=== PATIENT | male | born 1950 | race Caucasian/White ===

== ENCOUNTER 2018-11-27 10:42 | Inpatient (IN) | payer MEDICARE, OTHER ==
[2018-11-27] VITALS (8 sets, daily range): BP systolic 82–200; BP diastolic 46–94
[~2018-11-27] VITALS: Ht 170.2 cm; Wt 105.3 kg
[~2018-11-27 10:42] MED LIST: AMLODIPINE BESYL5 MG PO; DIOVAN80 MG PO; JANUVIA100 MG PO; LASIX20 MG PO; VITAMIN D2400 UNIT
[2018-11-27] MEDS ORDERED: SODIUM CHLORIDE 0.9% 1000ML 1,000 ML IV STA (10:44)
--- OUTSIDE RECORDS SUMMARY | 2018-11-27 10:46 | XMS REPORT | Clinical Summary ---
Author Author [facility]ADEL[facility] Address Unknown Phone Unavailable Care Team Providers Care Muffler Hand Name Role Phone Pcp, No PCP Unavailable Allergies No Known Allergies Medications End Date Status Medication Sig Dispensed Refills Start Date Active tamsulosin (FLOMAX) 0.4 Take 1 90 capsule 0 //201 mg Cp24 24 hr capsule capsule (0.4 7 mg total) by mouth daily. Active valsartan-hydroCHLOROthia Take 1 tablet 0 zide (DIOVAN-HCT) 160-25 by mouth mg per tablet daily. Active furosemide (LASIX) 20 MG Take 20 mg by 0 tablet mouth daily . Active potassium 99 mg Tab Take 1 tablet 0 by mouth daily . Active b complex vitamins Take 1 0 capsule capsule by mouth daily. Active magnesium oxide (MAG-OX) Take 400 mg 0 400 mg tablet by mouth daily. Active melatonin 3 mg Tab tablet Take 3 mg by 0 mouth every night as needed. Active HUMALOG U-100 INSULIN 100 0 02/05/201 unit/mL 8 injectionIndications: Fatty liver, Screening for cancer, Thrombocytopenia (HCC) Active SITagliptin (JANUVIA) 25 Take by mouth 0 MG tabletIndications: daily. Fatty liver, Screening for cancer, Thrombocytopenia (HCC) 02/28/2018 Discontinued valsartan (DIOVAN) 80 MG Take 80 mg by 0 tablet mouth daily. 02/28/2018 Discontinued SITagliptin (JANUVIA) 50 Take 50 mg by 0 MG tablet mouth daily. 05/04/2018 amLODIPine (NORVASC) 10 Take 1 tablet 90 tablet 0 05/04/201 MG tablet (10 mg total) 7 by mouth daily. 04/03/2018 Discontinued insulin regular (HUMULIN Inject 0 R,NOVOLIN R) 100 unit/mL subcutaneousl injection y 3 (three) times daily before meals Use as directed . 06/21/2018 PEG Take 1 packet 1 packet 0 [id number] by mouth once 8 C (MOVIPREP) for 1 dose. 100-7.5-2.691 gram PwPk packet Active Problems Patient Care Coordination Note Endocrinology- Hue rBown Neurologist- Dr. Woodall [phone] Customer Development Representative- Dr. Woodard [phone] Problem Noted Date Fatty liver 04/30/2018 Last Assessment & Plan: Continue follow up with hepatology. Screening for cancer 04/30/2018 Last Assessment & Plan: Patients over the age of 50 are at risk for colon cancer. Per patient report, he received his first colonoscopy at age 49 which he says is normal. I recommend a colonoscopy for further evaluation with EGD to rule out varices. Thrombocytopenia 04/30/2018 Last Assessment & Plan: Platelet count is 155 on recent labs however has been lower prior. This could be due to portal hypertension and splenic sequestration although ultrasound does not suggest splenomegaly. We will repeat platelet count with citrate to rule out thrombocytopenia due to artifact. Immunity status testing 04/30/2018 Obesity 04/03/2018 Last Assessment & Plan: Current BMI is 37. He will need to continue losing weight. He was encouraged to monitor his po intake and to exercise as tolerated. DM2 (diabetes mellitus, type 2) 02/20/2018 Last Assessment & Plan: Continue management with primary care for glucose management. Essential hypertension 02/20/2018 Last Assessment & Plan: Blood pressure management per primary care. Pre-transplant evaluation for ESRD (end stage renal disease) 02/20/2018 Last Assessment & Plan: He is an acceptable candidate but will need hepatology clearance (appointment this afternoon). He will also need to continue losing weight prior to transplant. ESRD (end stage renal disease) 02/20/2018 Last Assessment & Plan: Renal disease secondary to DM/HTN. He does not require hemodialysis at this time and still produces normal amounts of urine. ICH (intracerebral hemorrhage) 05/02/2017 Encounters Care Team Description Date Type Specialty Julia Alex RN Awaiting transplantation of kidney (Primary Dx) 10/22/2018 Orders Only Transplant Ava Matamorosen, MD 09/04/2018 Evaluation Transplant Kelsie Bob, MARICARMEN 06/28/2018 Anesthesia Gastroenterology Event Trino Dang MD COLONOSCOPY 06/28/2018 Surgery Gastroenterology Trino Dang MD 06/28/2018 Hospital Gastroenterology Encounter Kelsie Bob NP 06/27/2018 Anesthesia Pre-Admission Testing Event Resource, [facility] Preadmit Phone 06/26/2018 Hospital Pre-Admission Testing Encounter Jacey Rivas RN Moviprep 06/25/2018 Telephone Hepatology Jacey Rivas RN 06/21/2018 Orders Only Hepatology Trino Dang MD ESRD (end stage renal disease) (HCC) (Primary Dx); Fatty liver; Class 2 severe obesity due to excess calories with serious comorbidity and body mass index (BMI) of 37.0 to 37.9 in adult (HCC); Pre-transplant evaluation for ESRD (end stage renal disease) 06/05/2018 Office Visit Hepatology Trino Dang MD Lands, Sarah Elizabeth, NP Pre-transplant evaluation for ESRD (end stage renal disease) (Primary Dx); BMI 37.0-37.9, adult; ESRD (end stage renal disease) (HCC); Essential hypertension; Fatty liver 06/05/2018 Office Visit Transplant Feliciano Malin Essential hypertension, malignant; Pre-transplant evaluation for chronic kidney disease; Anemia of renal disease 06/05/2018 Hospital Cardiology Encounter Amaya Quinn Procedure (Colonoscopy) 06/05/2018 Telephone Hepatology Julia Alex RN Waitlist Maintenance 06/04/2018 Telephone Transplant Trino Dang MD Fatty liver; Thrombocytopenia (HCC); Screening for cancer 05/22/2018 Hospital Encounter Miryam Kraft, MARLON 05/22/2018 Abstract Transplant Miryam Kraft RN Pre-transplant evaluation for ESRD (end stage renal disease) (Primary Dx); Patient awaiting renal transplant 05/22/2018 Orders Only Transplant Trino Dang MD 05/03/2018 Outside Orders Central Scheduling Gabby Shrestha 05/01/2018 Documentation Transplant Allyson Dubois II, MD Provider, [facility] Generic No Show 04/30/2018 [facility] Charge Transplant Visit Trino Dang MD Fatty liver; Screening for cancer; Thrombocytopenia (HCC); Essential hypertension; Class 2 severe obesity due to excess calories with serious comorbidity and body mass index (BMI) of 37.0 to 37.9 in adult (HCC); Type 2 diabetes mellitus with chronic kidney disease, with long-term current use of insulin, unspecified CKD stage (HCC); Immunity status testing 04/30/2018 Office Visit Hepatology Miryam Kraft RN 04/30/2018 Documentation Transplant Jacey Rivas RN Fatty liver (Primary Dx) 04/30/2018 Orders Only Hepatology Rimma Zavaleta Appointment (Mr. Harper is here for his appt with hepatology and I walked over to give Mr. Harper his MRB letter and his itinerary and Mr. Harper is aware of his appts) 04/30/2018 Telephone Transplant Rimma Zavaleta Appointment (Per Mr. Harper he will be here for his appt with hepatology on this morning. Mr. Harper is aware of his appt for 06.05.18 and to check in at 7 am. I'm mailing the pts itinerary) 04/30/2018 Telephone Transplant Sahil Pierre Appointment 04/27/2018 Telephone Hepatology Amaya Barnes RN Essential hypertension, malignant (Primary Dx); Pre-transplant evaluation for chronic kidney disease; Anemia of renal disease 04/20/2018 Orders Only Transplant Amaya Barnes RN 04/20/2018 Abstract Transplant Sergio Mancia MD ESRD (end stage renal disease) (HCC); Pre-transplant evaluation for chronic kidney disease; Anemia of renal disease; Essential hypertension, malignant; Uncontrolled other specified diabetes mellitus with stage 4 chronic kidney disease, unspecified whether jail insulin use (HCC) 04/03/2018 Orders Only Transplant Hepatology Sergio Mancia MD Lands, Sarah Elizabeth, NP Pre-transplant evaluation for chronic kidney disease (Primary Dx); Uncontrolled other specified diabetes mellitus with stage 4 chronic kidney disease, unspecified whether jail insulin use (HCC); Essential hypertension, malignant; ESRD (end stage renal disease) (HCC) 04/03/2018 Office Visit Transplant Sergio Mancia MD 04/03/2018 Evaluation Transplant Amaya Barnes RN 03/01/2018 Documentation Transplant Rimma Zavaleta Appointment (Spoke with Mr. Harper and he's aware of his new appt date 04/03/18 and I have mailed the itinerary to the patient) 03/01/2018 Telephone Transplant Sergio Mancia MD ESRD (end stage renal disease) (HCC); Pre-transplant evaluation for chronic kidney disease; Anemia of renal disease; Essential hypertension, malignant; Uncontrolled other specified diabetes mellitus with stage 4 chronic kidney disease, unspecified whether lobsterman insulin use (HCC) 02/28/2018 Hospital Radiology Encounter Sergio Mancia MD ESRD (end stage renal disease) (HCC); Pre-transplant evaluation for chronic kidney disease; Anemia of renal disease; Essential hypertension, malignant; Uncontrolled other specified diabetes mellitus with stage 4 chronic kidney disease, unspecified whether lobsterman insulin use (HCC) 02/28/2018 Hospital Encounter Allyson Dubois II, MD Yao, June, MD ESRD (end stage renal disease) (HCC) (Primary Dx) 02/28/2018 Evaluation Transplant Allyson Dubois II, MD ESRD (end stage renal disease) (HCC); Pre-transplant evaluation for chronic kidney disease; Anemia of renal disease; Essential hypertension, malignant; Uncontrolled other specified diabetes mellitus with stage 4 chronic kidney disease, unspecified whether lobsterman insulin use (HCC) 02/28/2018 Orders Only Transplant Hepatology Allyson Dubois II, MD Newby, Karen, RN ESRD (end stage renal disease) (HCC) (Primary Dx); Pre-transplant evaluation for chronic kidney disease; Anemia of renal disease; Essential hypertension, malignant; Uncontrolled other specified diabetes mellitus with stage 4 chronic kidney disease, unspecified whether lobsterman insulin use (HCC) 02/28/2018 Office Visit Transplant Amaya Barnes RN Pre-transplant evaluation for chronic kidney disease (Primary Dx) 02/28/2018 Orders Only Transplant Allyson Dubois II, MD 02/28/2018 Outside Orders Rimma Zavaleta Appointment (Left a message for to call back to confirm his appt for Wednesday, February 28) 02/26/2018 Telephone Transplant Chad Gill 02/09/2018 Abstract Transplant Chad Gill 01/29/2018 Abstract Transplant Chad Gill 01/29/2018 Abstract Transplant after 11/26/2017 Family History Medical History Relation Name Comments No Known Problem Daughter Cancer Father Esophageal cancer Father Diabetes Mother Stroke Mother No Known Problem Sister No Known Problem Son Relation Name Status Comments Daughter Alive Father Mother Sister Alive Son Alive Social History Date Tobacco Use Types Packs/Day Years Used Never Smoker Smokeless Tobacco: Never Used Alcohol Use Drinks/Week oz/Week Comments Yes social, 0-1 per week Sex Assigned at Date Recorded Not on file Industry Job Start Date Occupation Not on file Not on file Not on file Travel End Travel History Travel Start No recent travel history available. Last Filed Vital Signs Time Taken Vital Sign Reading 06/28/2018 2:00 PM CDT Blood Pressure 156/63 06/28/2018 2:00 PM CDT Pulse 42 06/28/2018 2:00 PM CDT Temperature 37.1 C (98.7 F) 06/28/2018 2:00 PM CDT Respiratory Rate 16 06/28/2018 2:00 PM CDT Oxygen Saturation 98% - Inhaled Oxygen - Concentration 09/04/2018 8:33 AM SENIOR MARKETING SPECIALIST Weight 104.5 kg (230 lb 6.4 oz) 09/04/2018 8:33 AM SENIOR MARKETING SPECIALIST Height 167.5 cm (5' 5.95") 09/04/2018 8:33 AM SENIOR MARKETING SPECIALIST Body Mass Index 37.25 Plan of Treatment Care Team Description Date Type Specialty Allyson Dubois II, MD [address] [place] [address] Resource, [facility] F 12/07/2018 Office Visit Hepatology Health Maintenance Due Date Last Done Comments INFLUENZA VACCINE 07/16/2018 Procedures Comments Procedure Name Priority Date/Time Associated Diagnosis POCT-GLUCOSE METER Routine 06/28/2018 12:59 PM CDT REPORT OF PROCEDURE - 06/28/2018 ENDOSCOPY URL 12:39 PM CDT TISSUE EXAM AP Routine 06/28/2018 12:18 PM CDT REPORT OF PROCEDURE - 06/28/2018 ENDOSCOPY URL 11:55 AM CDT UPPER ENDOSCOPY 06/28/2018 Fatty liver 11:30 AM CDT COLONOSCOPY 06/28/2018 Fatty liver 11:30 AM CDT POCT-GLUCOSE METER Routine 06/28/2018 10:57 AM CDT 2D ECHO W/ DOPPLER Routine 06/05/2018 Essential hypertension, (CW/PW/COLOR) 7:44 AM CDT malignant Pre-transplant evaluation for chronic kidney disease Anemia of renal disease OCCULT BLOOD, STOOL Routine 06/05/2018 Essential hypertension, 7:40 AM CDT malignant Pre-transplant evaluation for chronic kidney disease Anemia of renal disease OCCULT BLOOD, STOOL Routine 06/05/2018 Essential hypertension, 7:40 AM CDT malignant Pre-transplant evaluation for chronic kidney disease Anemia of renal disease TISSUE EXAM AP Routine 05/22/2018 11:01 AM CDT IR TRANSCATHETER BIOSPY Routine 05/22/2018 Fatty liver OF KIDNEY/LIVER 10:50 AM CDT Thrombocytopenia (HCC) Screening for cancer CBC W/PLT COUNT & AUTO STAT 05/22/2018 DIFFERENTIAL 6:43 AM CDT CBC W/PLT COUNT & AUTO STAT 05/22/2018 DIFFERENTIAL 6:43 AM CDT PT/APTT STAT 05/22/2018 6:43 AM CDT COMPREHENSIVE METABOLIC STAT 05/22/2018 PANEL 6:43 AM CDT HEPATITIS A ANTIBODY, IGM Routine 04/30/2018 Fatty liver 12:17 PM CDT Screening for cancer Thrombocytopenia (HCC) HEPATITIS A ANTIBODY, IGG Routine 04/30/2018 Fatty liver 12:17 PM CDT Screening for cancer Thrombocytopenia (HCC) CBC W/PLT COUNT & AUTO Routine 04/30/2018 Fatty liver DIFFERENTIAL 10:42 AM CDT Screening for cancer Thrombocytopenia (HCC) LIVER FIBROSIS, Routine 04/30/2018 Fatty liver FIBROTEST-ACTITEST PANEL 10:42 AM CDT Screening for cancer Thrombocytopenia (HCC) ALPHA FETOPROTEIN (AFP), Routine 04/30/2018 Fatty liver TUMOR MARKER 10:42 AM CDT Screening for cancer Thrombocytopenia (HCC) MITOCHONDRIA M2 ANTIBODY Routine 04/30/2018 Fatty liver (IGG) 10:42 AM CDT Screening for cancer Thrombocytopenia (HCC) ACTIN (SMOOTH MUSCLE) Routine 04/30/2018 Fatty liver ANTIBODY, IGG 10:42 AM CDT Screening for cancer Thrombocytopenia (HCC) ANTI-NUCLEAR ANTIBODY Routine 04/30/2018 Fatty liver (CARRILLO) 10:42 AM CDT Screening for cancer Thrombocytopenia (HCC) CERULOPLASMIN Routine 04/30/2018 Fatty liver 10:42 AM CDT Screening for cancer Thrombocytopenia (HCC) [id number], Routine 04/30/2018 Fatty liver SERUM 10:42 AM CDT Screening for cancer Thrombocytopenia (HCC) FERRITIN Routine 04/30/2018 Fatty liver 10:42 AM CDT Screening for cancer Thrombocytopenia (HCC) IRON, TIBC, % SAT. Routine 04/30/2018 Fatty liver (WITHOUT FERRITIN) 10:42 AM CDT Screening for cancer Thrombocytopenia (HCC) HEPATITIS B SURFACE Routine 04/30/2018 Fatty liver ANTIBODY 10:42 AM CDT Screening for cancer Thrombocytopenia (HCC) PROTHROMBIN TIME/INR Routine 04/30/2018 Fatty liver 10:42 AM CDT Screening for cancer Thrombocytopenia (HCC) CBC W/PLT COUNT & AUTO Routine 04/30/2018 Fatty liver DIFFERENTIAL 10:42 AM CDT Screening for cancer Thrombocytopenia (HCC) BILIRUBIN, DIRECT Routine 04/30/2018 Fatty liver 10:42 AM CDT Screening for cancer Thrombocytopenia (HCC) COMPREHENSIVE METABOLIC Routine 04/30/2018 Fatty liver PANEL 10:42 AM CDT Screening for cancer Thrombocytopenia (HCC) TRANSFUSION SERVICE 04/04/2018 REPORT - SCAN 6:03 PM CDT LIPID PANEL Routine 04/03/2018 ESRD (end stage renal 8:53 AM CDT disease) ([facility]) Pre-transplant evaluation for chronic kidney disease Anemia of renal disease Essential hypertension, malignant Uncontrolled other specified diabetes mellitus with stage 4 chronic kidney disease, unspecified whether jail insulin use ([facility]) TYPE AND SCREEN, Routine 04/03/2018 ESRD (end stage renal AUTOMATED 8:49 AM CDT disease) (HCC) Pre-transplant evaluation for chronic kidney disease Anemia of renal disease Essential hypertension, malignant Uncontrolled other specified diabetes mellitus with stage 4 chronic kidney disease, unspecified whether lobsterman insulin use ([facility]) TRANSFUSION SERVICE 03/01/2018 REPORT - SCAN 5:45 PM CDT US ABDOMEN COMPLETE Routine 02/28/2018 Pre-transplant evaluation 1:40 PM CDT for chronic kidney disease XR CHEST 2 VIEWS Routine 02/28/2018 Pre-transplant evaluation 11:28 AM CDT for chronic kidney disease URINALYSIS W/ MICROSCOPIC Routine 02/28/2018 ESRD (end stage renal 8:27 AM CDT disease) ([facility]) Pre-transplant evaluation for chronic kidney disease Anemia of renal disease Essential hypertension, malignant Uncontrolled other specified diabetes mellitus with stage 4 chronic kidney disease, unspecified whether jail insulin use ([facility]) URIC ACID Routine 02/28/2018 ESRD (end stage renal 8:27 AM CDT disease) (HCC) Pre-transplant evaluation for chronic kidney disease Anemia of renal disease Essential hypertension, malignant Uncontrolled other specified diabetes mellitus with stage 4 chronic kidney disease, unspecified whether lobsterman insulin use ([facility]) PHOSPHORUS Routine 02/28/2018 ESRD (end stage renal 8:27 AM CDT disease) ([facility]) Pre-transplant evaluation for chronic kidney disease Anemia of renal disease Essential hypertension, malignant Uncontrolled other specified diabetes mellitus with stage 4 chronic kidney disease, unspecified whether lobsterman insulin use ([facility]) LACTATE DEHYDROGENASE Routine 02/28/2018 ESRD (end stage renal (LDH) 8:27 AM CDT disease) ([facility]) Pre-transplant evaluation for chronic kidney disease Anemia of renal disease Essential hypertension, malignant Uncontrolled other specified diabetes mellitus with stage 4 chronic kidney disease, unspecified whether jail insulin use ([facility]) GAMMA GLUTAMYL Routine 02/28/2018 ESRD (end stage renal TRANSFERASE (GGT) 8:27 AM CDT disease) ([facility]) Pre-transplant evaluation for chronic kidney disease Anemia of renal disease Essential hypertension, malignant Uncontrolled other specified diabetes mellitus with stage 4 chronic kidney disease, unspecified whether jail insulin use ([facility]) COMPREHENSIVE METABOLIC Routine 02/28/2018 ESRD (end stage renal PANEL 8:27 AM CDT disease) ([facility]) Pre-transplant evaluation for chronic kidney disease Anemia of renal disease Essential hypertension, malignant Uncontrolled other specified diabetes mellitus with stage 4 chronic kidney disease, unspecified whether lobsterman insulin use ([facility]) URINE CULTURE Routine 02/28/2018 ESRD (end stage renal 8:27 AM CDT disease) ([facility]) Pre-transplant evaluation for chronic kidney disease Anemia of renal disease Essential hypertension, malignant Uncontrolled other specified diabetes mellitus with stage 4 chronic kidney disease, unspecified whether jail insulin use ([facility]) CBC W/PLT COUNT & AUTO Routine 02/28/2018 ESRD (end stage renal DIFFERENTIAL 8:26 AM CDT disease) ([facility]) Pre-transplant evaluation for chronic kidney disease Anemia of renal disease Essential hypertension, malignant Uncontrolled other specified diabetes mellitus with stage 4 chronic kidney disease, unspecified whether lobsterman insulin use ([facility]) PSA Routine 02/28/2018 ESRD (end stage renal 8:26 AM CDT disease) ([facility]) Pre-transplant evaluation for chronic kidney disease Anemia of renal disease Essential hypertension, malignant Uncontrolled other specified diabetes mellitus with stage 4 chronic kidney disease, unspecified whether jail insulin use ([facility]) VARICELLA ZOSTER Routine 02/28/2018 ESRD (end stage renal ANTIBODY, IGG 8:26 AM CDT disease) ([facility]) Pre-transplant evaluation for chronic kidney disease Anemia of renal disease Essential hypertension, malignant Uncontrolled other specified diabetes mellitus with stage 4 chronic kidney disease, unspecified whether lobsterman insulin use ([facility]) T SPOT TB Routine 02/28/2018 ESRD (end stage renal 8:26 AM CDT disease) ([facility]) Pre-transplant evaluation for chronic kidney disease Anemia of renal disease Essential hypertension, malignant Uncontrolled other specified diabetes mellitus with stage 4 chronic kidney disease, unspecified whether jail insulin use (HCC) RPR Routine 02/28/2018 ESRD (end stage renal 8:26 AM CDT disease) (HCC) Pre-transplant evaluation for chronic kidney disease Anemia of renal disease Essential hypertension, malignant Uncontrolled other specified diabetes mellitus with stage 4 chronic kidney disease, unspecified whether lobsterman insulin use (HCC) PT/APTT Routine 02/28/2018 ESRD (end stage renal 8:26 AM CDT disease) (HCC) Pre-transplant evaluation for chronic kidney disease Anemia of renal disease Essential hypertension, malignant Uncontrolled other specified diabetes mellitus with stage 4 chronic kidney disease, unspecified whether jail insulin use (HCC) PTH, INTACT Routine 02/28/2018 ESRD (end stage renal 8:26 AM CDT disease) (HCC) Pre-transplant evaluation for chronic kidney disease Anemia of renal disease Essential hypertension, malignant Uncontrolled other specified diabetes mellitus with stage 4 chronic kidney disease, unspecified whether lobsterman insulin use (HCC) HIV-1 ANTIGEN WITH Routine 02/28/2018 ESRD (end stage renal HIV-1/2 ANTIBODY 8:26 AM CDT disease) (HCC) Pre-transplant evaluation for chronic kidney disease Anemia of renal disease Essential hypertension, malignant Uncontrolled other specified diabetes mellitus with stage 4 chronic kidney disease, unspecified whether jail insulin use (HCC) HEPATITIS C ANTIBODY Routine 02/28/2018 ESRD (end stage renal 8:26 AM CDT disease) (HCC) Pre-transplant evaluation for chronic kidney disease Anemia of renal disease Essential hypertension, malignant Uncontrolled other specified diabetes mellitus with stage 4 chronic kidney disease, unspecified whether lobsterman insulin use (HCC) HEPATITIS B CORE Routine 02/28/2018 ESRD (end stage renal ANTIBODY, IGM 8:26 AM CDT disease) (HCC) Pre-transplant evaluation for chronic kidney disease Anemia of renal disease Essential hypertension, malignant Uncontrolled other specified diabetes mellitus with stage 4 chronic kidney disease, unspecified whether lobsterman insulin use (HCC) HEPATITIS B SURFACE Routine 02/28/2018 ESRD (end stage renal ANTIGEN 8:26 AM CDT disease) (HCC) Pre-transplant evaluation for chronic kidney disease Anemia of renal disease Essential hypertension, malignant Uncontrolled other specified diabetes mellitus with stage 4 chronic kidney disease, unspecified whether jail insulin use (HCC) HEPATITIS B SURFACE Routine 02/28/2018 ESRD (end stage renal ANTIBODY 8:26 AM CDT disease) (HCC) Pre-transplant evaluation for chronic kidney disease Anemia of renal disease Essential hypertension, malignant Uncontrolled other specified diabetes mellitus with stage 4 chronic kidney disease, unspecified whether lobsterman insulin use ([facility]) EBV ANTIBODY, IGM Routine 02/28/2018 ESRD (end stage renal 8:26 AM CDT disease) ([facility]) Pre-transplant evaluation for chronic kidney disease Anemia of renal disease Essential hypertension, malignant Uncontrolled other specified diabetes mellitus with stage 4 chronic kidney disease, unspecified whether jail insulin use (HCC) EBV ANTIBODY, IGG Routine 02/28/2018 ESRD (end stage renal 8:26 AM CDT disease) ([facility]) Pre-transplant evaluation for chronic kidney disease Anemia of renal disease Essential hypertension, malignant Uncontrolled other specified diabetes mellitus with stage 4 chronic kidney disease, unspecified whether jail insulin use ([facility]) CYTOMEGALOVIRUS ANTIBODY, Routine 02/28/2018 ESRD (end stage renal IGM 8:26 AM CDT disease) (HCC) Pre-transplant evaluation for chronic kidney disease Anemia of renal disease Essential hypertension, malignant Uncontrolled other specified diabetes mellitus with stage 4 chronic kidney disease, unspecified whether lobsterman insulin use ([facility]LY [facility]) CYTOMEGALOVIRUS ANTIBODY, Routine 02/28/2018 ESRD (end stage renal IGG 8:26 AM CDT disease) (HCC) Pre-transplant evaluation for chronic kidney disease Anemia of renal disease Essential hypertension, malignant Uncontrolled other specified diabetes mellitus with stage 4 chronic kidney disease, unspecified whether jail insulin use ([facility]) CBC W/PLT COUNT & AUTO Routine 02/28/2018 ESRD (end stage renal DIFFERENTIAL 8:26 AM CDT disease) ([facility]) Pre-transplant evaluation for chronic kidney disease Anemia of renal disease Essential hypertension, malignant Uncontrolled other specified diabetes mellitus with stage 4 chronic kidney disease, unspecified whether lobsterman insulin use ([facility]) BLOOD TYPING, AUTOMATED Routine 02/28/2018 ESRD (end stage renal 8:25 AM CDT disease) ([facility]) Pre-transplant evaluation for chronic kidney disease Anemia of renal disease Essential hypertension, malignant Uncontrolled other specified diabetes mellitus with stage 4 chronic kidney disease, unspecified whether jail insulin use ([facility]) DIRECT AHG (SUKHDEEP)/DIRECT Routine 02/28/2018 ESRD (end stage renal MIL 8:25 AM CDT disease) ([facility]) Pre-transplant evaluation for chronic kidney disease Anemia of renal disease Essential hypertension, malignant Uncontrolled other specified diabetes mellitus with stage 4 chronic kidney disease, unspecified whether lobsterman insulin use ([facility]) HEMOGLOBIN A1C Routine 02/28/2018 ESRD (end stage renal 8:25 AM CDT disease) ([facility]) Pre-transplant evaluation for chronic kidney disease Anemia of renal disease Essential hypertension, malignant Uncontrolled other specified diabetes mellitus with stage 4 chronic kidney disease, unspecified whether jail insulin use ([facility]) HLA TYPING CI Routine 02/28/2018 ESRD (end stage renal 8:25 AM CDT disease) ([facility]) Pre-transplant evaluation for chronic kidney disease Anemia of renal disease Essential hypertension, malignant Uncontrolled other specified diabetes mellitus with stage 4 chronic kidney disease, unspecified whether jail insulin use ([facility]) HLA TYPING CII Routine 02/28/2018 ESRD (end stage renal 8:25 AM CDT disease) ([facility]) Pre-transplant evaluation for chronic kidney disease Anemia of renal disease Essential hypertension, malignant Uncontrolled other specified diabetes mellitus with stage 4 chronic kidney disease, unspecified whether jail insulin use ([facility]) FLOW PRA CLASS I WITH Routine 02/28/2018 ESRD (end stage renal REFLEX TO ANTIBODY 8:25 AM CDT disease) ([facility]) SPECIFICITY Pre-transplant evaluation for chronic kidney disease Anemia of renal disease Essential hypertension, malignant Uncontrolled other specified diabetes mellitus with stage 4 chronic kidney disease, unspecified whether jail insulin use ([facility]) FLOW PRA CLASS II WITH Routine 02/28/2018 ESRD (end stage renal REFLEX TO ANTIBODY 8:25 AM CDT disease) ([facility]) SPECIFICITY Pre-transplant evaluation for chronic kidney disease Anemia of renal disease Essential hypertension, malignant Uncontrolled other specified diabetes mellitus with stage 4 chronic kidney disease, unspecified whether lobsterman insulin use (HCC) after 11/26/2017 Results * POC-Glucose meter (06/28/2018 12:59 PM CDT) Only the most recent of 2 results within the time period is included. POC-Glucose Meter 152 (H)Comment: TESTED AT 70 - 110 mg/dL [facility] [address] [facility] [id number] Specimen Blood Performing Organization Address City/State/Zipcode Phone Number [facility] [address] [place] [address] [facility] * REPORT OF PROCEDURE - ENDOSCOPY URL (06/28/2018 12:39 PM CDT) Narrative Performed At * Tissue Exam (06/28/2018 12:18 PM CDT) Only the most recent of 2 results within the time period is included. Case Report Surgical Pathology [facility] Report [facility] Case: [id number] Authorizing Provider:Trino Dang MD Collected: 06/28/2018 1218 Ordering Location: [facility] Endoscopy Received: 06/28/2018 1526 Services Pathologist: Elton Casillas MD Specimen:Polyp, Colon - Cecum DIAGNOSIS CECUM POLYP, BIOPSY [facility] - COLONIC [place], WITHIN [facility] NORMAL LIMITS Signing Pathologist Direct Phone Line: [phone] CPT Code(s) 11635 [facility] CLINICAL HISTORY Fatty liver [facility] SPECIMEN SOURCE Cecum colon polyp [facility] GROSS DESCRIPTION The specimen is received in a [facility] formalin-filled container [facility] labeled with the patient's information and labeled "cecum polyp" and consists of five fragments of cárdenas tissue ranging from 0.1 to 0.6 cm submitted entirely in A1. CG/ew MICROSCOPIC DESCRIPTION Sections reveal pieces of [facility] benign colonic mucosa with [facility] mild chronic inflammation within the lamina propria. There is no evidence of polyp. Few macrophages containing granular brown pigment suggestive of melanosis coli are seen in lamina propria. Normal crypt architecture is seen with no evidence of granulomatous inflammation or acute colitis. Features of collagenous colitis, inflammatory bowel disease, and lymphocytic colitis are not seen. Adenomatous change, dysplasia, and malignancy are not seen. Specimen Tissue - Polyp, Colon - Cecum Performing Organization Address City/State/Zipcode Phone Number [facility] [address] [place] [address] [facility] * REPORT OF PROCEDURE - ENDOSCOPY URL (06/28/2018 11:55 AM CDT) Narrative Performed At * 2D Echo W/Doppler(CW/PW/Color) (06/05/2018 7:44 AM CDT) Ejection Fraction [facility] Narrative Performed At Transthoracic Echocardiography Report (TTE) [facility] Demographics [facility] Patient NameAmna HARPER of Study06/05/2018 LAZARO ULLOA Gender Male Visit [id number] Race Unknown Numberop Number Date of 1950 [facility] h[facility] Age 68 year(s) [facility] juan j Small MD Procedure Type of Study TTE procedure:2DECHO W DOPPLER(CW/PW/COLOR) Indications:Pre-surgical evaluation of organ transplant. Clinical History AVF,CKD,DM,HTN,TN,OBESITY,STROKE Height: 67 inches Weight: 107.05 kg (236 lbs) BSA: 2.17 m^2 BMI: 36.96 kg/m^2 HR: 44 bpm BP: 153/70 mmHg Summary The left ventricle is chamber size (by vol index) is normal. Mild septal hypertrophy is present. All of the LV segments contract normally . Estimated LVEF by qualitative assessment is normal (60%) . Normal diastolic function. No significant pericardial effusion is visualized. The estimated RA pressure by IVC dynamics 0-5mmHg . A trace of tricuspid regurgitation. Estimated peak systolic PA pressure is 30-35 mmHg . Signature Findings Left Ventricle The left ventricle is chamber size (by vol index) is normal. Mild septal hypertrophy is present. All of the LV segments contract normally . Estimated LVEF by qualitative assessment is normal (60%) . Normal diastolic function. Left AtriumLA size is mildly enlarged (35-41 ml/m2) . Right VentricleNormal RV size and systolic function. Right Atrium RA size is normal. Aortic Valve Normal AoV structure and function. Mitral Valve Mild MV leaflet thickening. Mild mitral annular calcification. Trace mitral regurgitation. Tricuspid ValveNormal TV structure and function. A trace of tricuspid regurgitation. Estimated peak systolic PA pressure is 30-35 mmHg . AortaAortic root size (SInus of Valsalva diameter) is mildly dilated . PericardiumNo significant pericardial effusion is visualized. IVC/SVC/PA/PV/PleuralThe estimated RA pressure by IVC dynamics 0-5mmHg . Chambers/Structures Left Atrium LA Volume: 86.67 ml LA Area: 28.05 cm^2 LA Vol. Index: 40 ml/m^2 Left Ventricle LVIDd: 3.33 cm LVIDs: 2.37 cm LV Septum Diastolic: 1.32 cm LV PW Diastolic: 1.21 cmLV FS: 28.8 % LVEDV Ward's:161.79 ml LVESV Ward's:40.58 mlLVEDVI: 75 ml/m^2 LVEF Ward's: 74.9 %LVESVI: 19 ml/m^2 LVOT Diameter: 2.34 cm Aorta Ao Root S of Lexi.: 3.95 cm Doppler/Quantitative Measurements Aortic Valve Peak Velocity: 1.61 m/sMean Velocity: 1.03 m/s Peak Gradient: 10.3 mmHg Mean Gradient: 4.92 mmHg AV Area (continuity): 3.13 cm^2 AV VTI: 29.36 cm AV DVI: 0.73 LVOT Peak Velocity: 0.88 m/s Peak Gradient: 3.07 mmHg Mean Velocity: 0.64 m/s Mean Gradient: 1.81 mmHg LVOT Diameter: 2.34 cmLVOT VTI: 21.36 cm LVOT Area: 4.3 cm^2 LVOT SV:91.81 ml LVOT CO: 4.04 l/min LVOT CI: 1.86 l/min/m^2 Procedure Note Interface, External Ris In - 06/05/2018 10:33 AM CDT Transthoracic Echocardiography Report (TTE) Demographics Patient Name ASHLEY HARPER Date of Study 06/05/2018 LAZARO ULLOA Gender Male Visit Number [id number] Race Unknown Room Number op Number Date of 1950 Referring Sherly Christie Physician Age 68 year(s) Precision Instrument Maker Francois Saravia Interpreting Kamran Lomax MD Procedure Type of Study TTE procedure:2DECHO W DOPPLER(CW/PW/COLOR) Indications:Pre-surgical evaluation of organ transplant. Clinical History AVF,CKD,DM,HTN,TN,OBESITY,STROKE Height: 67 inches Weight: 107.05 kg (236 lbs) BSA: 2.17 m^2 BMI: 36.96 kg/m^2 HR: 44 bpm BP: 153/70 mmHg Summary The left ventricle is chamber size (by vol index) is normal. Mild septal hypertrophy is present. All of the LV segments contract normally . Estimated LVEF by qualitative assessment is normal (60%) . Normal diastolic function. No significant pericardial effusion is visualized. The estimated RA pressure by IVC dynamics 0-5mmHg . A trace of tricuspid regurgitation. Estimated peak systolic PA pressure is 30-35 mmHg . Signature Findings Left Ventricle The left ventricle is chamber size (by vol index) is normal. Mild septal hypertrophy is present. All of the LV segments contract normally . Estimated LVEF by qualitative assessment is normal (60%) . Normal diastolic function. Left Atrium LA size is mildly enlarged (35-41 ml/m2) . Right Ventricle Normal RV size and systolic function. Right Atrium RA size is normal. Aortic Valve Normal AoV structure and function. Mitral Valve Mild MV leaflet thickening. Mild mitral annular calcification. Trace mitral regurgitation. Tricuspid Valve Normal TV structure and function. A trace of tricuspid regurgitation. Estimated peak systolic PA pressure is 30-35 mmHg . Aorta Aortic root size (SInus of Valsalva diameter) is mildly dilated . Pericardium No significant pericardial effusion is visualized. IVC/SVC/PA/PV/Pleural The estimated RA pressure by IVC dynamics 0-5mmHg . Chambers/Structures Left Atrium LA Volume: 86.67 ml LA Area: 28.05 cm^2 LA Vol. Index: 40 ml/m^2 Left Ventricle LVIDd: 3.33 cm LVIDs: 2.37 cm LV Septum Diastolic: 1.32 cm LV PW Diastolic: 1.21 cm LV FS: 28.8 % LVEDV Ward's:161.79 ml LVESV Ward's:40.58 ml LVEDVI: 75 ml/m^2 LVEF Ward's: 74.9 % LVESVI: 19 ml/m^2 LVOT Diameter: 2.34 cm Aorta Ao Root S of Lexi.: 3.95 cm Doppler/Quantitative Measurements Aortic Valve Peak Velocity: 1.61 m/s Mean Velocity: 1.03 m/s Peak Gradient: 10.3 mmHg Mean Gradient: 4.92 mmHg AV Area (continuity): 3.13 cm^2 AV VTI: 29.36 cm AV DVI: 0.73 LVOT Peak Velocity: 0.88 m/s Peak Gradient: 3.07 mmHg Mean Velocity: 0.64 m/s Mean Gradient: 1.81 mmHg LVOT Diameter: 2.34 cm LVOT VTI: 21.36 cm LVOT Area: 4.3 cm^2 LVOT SV:91.81 ml LVOT CO: 4.04 l/min LVOT CI: 1.86 l/min/m^2 Performing Organization Address City/[facility]/Zipcode Phone Number [facility] * Occult blood, stool (06/05/2018 7:40 AM CDT) Only the most recent of 2 results within the time period is included. Occult blood Negative Negative [facility] Specimen Stool - Stool Performing Organization Address City/[facility]/Zipcode Phone Number [facility] [address] [place] [address] [facility] * IR Transcatheter Biopsy of Kidney/Liver (05/22/2018 10:50 AM CDT) Narrative Performed At FINAL REPORT Yobongo History: Abnormal liver function tests. PROCEDURE: Following informed written consent, the patient's right cervical region was first prepped and draped in the usual sterile manner. 2% lidocaine was given locally for anesthesia. Additionally, the patient was given a total of 2.5 mg IV Versed and 125 mcg IV fentanyl and segmental doses during the procedure for conscious sedation and pain control. Vital signs were monitored and remained stable. Conscious sedation and continuous patient monitoring were provided by the attending radiologist and a registered nurse for approximately 40 minutes during the procedure. Using ultrasound guidance and a micropuncture needle, access was initially gained to the right internal jugular vein. A 9 [place] sheath was placed at the access site. A 5 [place] multipurpose catheter was placed over a wire and used to select the hepatic vein. Hepatic venogram was performed. Hepatic pressure measurements were obtained. Several unsuccessful attempts were made to advance the biopsy sheath into the hepatic vein and a safe position for transjugular biopsy. A safe position cannot be achieved. Therefore, the sheath and catheter were removed and hemostasis achieved using manual compression. Following a discussion with the referring electrical instrument repairer, Dr. Fernandez, by telephone, the patient's abdominal wall was then prepped and draped in the usual sterile manner. 2% lidocaine was given locally for anesthesia. No additional conscious sedation was administered. Using a right upper quadrant anterolateral approach and a 16-gauge biopsy appearance needle, a total of two core tissue samples were obtained from the right hepatic lobe and submitted to pathology in formalin for evaluation. Overall, the patient tolerated the procedure well without immediate complications and was discharged from the department in stable condition. FINDINGS: Ultrasound images of the right internal jugular vein performed prior to access demonstrates a patent compressible vein without visible thrombus. These images were archived to PACS. Multiple images obtained during the hepatic venogram and pressure measurements demonstrates patent middle hepatic vein. There is a relatively acute angle of the hepatic vein with the IVC which prevented placement of the biopsy sheath and a safe position. Pressure measurements within the liver or obtained as follows: Wedged hepatic pressure: 10 mmHg Free hepatic pressure: 8 mmHg Right atrial pressure: 6 mmHg Ultrasound images obtained during the percutaneous biopsy demonstrate the biventricular needle in expected position within the right hepatic lobe. After the biopsies, there are no perihepatic fluid collections or evidence for hemorrhage. IMPRESSION: 1. Successful uncomplicated ultrasound-guided percutaneous core biopsy of the liver. Attempts to perform transjugular liver biopsy were unsuccessful due to patient's hepatic venous anatomy. Hepatic pressures, however, were successfully obtained as described in detail above. Total fluoroscopy time: 4.1 minutes. Estimated total patient dose reported as (Ka,r): 101 mGy Signed: Nanda Tolentino MD Report Verified Date/Time:05/22/2018 14:18:18 Reading Location: [place] [address] Angio Body Reading Room Procedure Note Interface, External Ris In - 05/22/2018 2:20 PM CDT FINAL REPORT History: Abnormal liver function tests. PROCEDURE: Following informed written consent, the patient's right cervical region was first prepped and draped in the usual sterile manner. 2% lidocaine was given locally for anesthesia. Additionally, the patient was given a total of 2.5 mg IV Versed and 125 mcg IV fentanyl and segmental doses during the procedure for conscious sedation and pain control. Vital signs were monitored and remained stable. Conscious sedation and continuous patient monitoring were provided by the attending radiologist and a registered nurse for approximately 40 minutes during the procedure. Using ultrasound guidance and a micropuncture needle, access was initially gained to the right internal jugular vein. A 9 [place] sheath was placed at the access site. A 5 [place] multipurpose catheter was placed over a wire and used to select the hepatic vein. Hepatic venogram was performed. Hepatic pressure measurements were obtained. Several unsuccessful attempts were made to advance the biopsy sheath into the hepatic vein and a safe position for transjugular biopsy. A safe position cannot be achieved. Therefore, the sheath and catheter were removed and hemostasis achieved using manual compression. Following a discussion with the referring electrical instrument repairer, Dr. Fernandez, by telephone, the patient's abdominal wall was then prepped and draped in the usual sterile manner. 2% lidocaine was given locally for anesthesia. No additional conscious sedation was administered. Using a right upper quadrant anterolateral approach and a 16-gauge biopsy appearance needle, a total of two core tissue samples were obtained from the right hepatic lobe and submitted to pathology in formalin for evaluation. Overall, the patient tolerated the procedure well without immediate complications and was discharged from the department in stable condition. FINDINGS: Ultrasound images of the right internal jugular vein performed prior to access demonstrates a patent compressible vein without visible thrombus. These images were archived to PACS. Multiple images obtained during the hepatic venogram and pressure measurements demonstrates patent middle hepatic vein. There is a relatively acute angle of the hepatic vein with the IVC which prevented placement of the biopsy sheath and a safe position. Pressure measurements within the liver or obtained as follows: Wedged hepatic pressure: 10 mmHg Free hepatic pressure: 8 mmHg Right atrial pressure: 6 mmHg Ultrasound images obtained during the percutaneous biopsy demonstrate the biventricular needle in expected position within the right hepatic lobe. After the biopsies, there are no perihepatic fluid collections or evidence for hemorrhage. IMPRESSION: 1. Successful uncomplicated ultrasound-guided percutaneous core biopsy of the liver. Attempts to perform transjugular liver biopsy were unsuccessful due to patient's hepatic venous anatomy. Hepatic pressures, however, were successfully obtained as described in detail above. Total fluoroscopy time: 4.1 minutes. Estimated total patient dose reported as (Ka,r): 101 mGy Signed: Nanda Tolentino MD Report Verified Date/Time: 05/22/2018 14:18:18 Reading Location: [facility] P048 Angio Body Reading Room Performing Organization Address City/State/Zipcode Phone Number [facility] * PT/aPTT (05/22/2018 6:43 AM CDT) Only the most recent of 2 results within the time period is included. Protime 15.9 (H) 11.7 - 14.7 seconds [facility] INR 1.3 <=5.9 [facility] PTT 33.1 22.5 - 36.0 seconds [facility] Specimen Blood Narrative Performed At RECOMMENDED COUMADIN/WARFARIN INR THERAPY RANGES [facility] STANDARD DOSE: 2.0 - 3.0 Includes: PROPHYLAXIS for venous thrombosis, [facility] systemic embolization; TREATMENT for venous thrombosis and/or pulmonary embolus. HIGH RISK: Target INR is 2.5-3.5 for patients with mechanical heart valves. Performing Organization Address City/State/Zipcode Phone Number [facility] [address] [place] [address] MEDICAL CENTER * CBC with platelet count + automated diff (05/22/2018 6:43 AM CDT) Only the most recent of 3 results within the time period is included. WBC 5.9 3.5 - 10.5 K/L [facility] RBC 3.78 (L) 4.63 - 6.08 M/L [facility] Hemoglobin 10.9 (L) 13.7 - 17.5 GM/DL [facility] Hematocrit 33.7 (L) 40.1 - 51.0 % [facility] MCV 89.2 79.0 - 92.2 fL [facility] MCH 28.8 25.7 - 32.2 pg [facility] MCHC 32.3 32.3 - 36.5 GM/DL [facility] RDW 13.2 11.6 - 14.4 % [facility] Platelets 150 150 - 450 K/CU MM [facility] MPV 11.0 9.4 - 12.4 fL [facility] nRBC 0 0 - 0 /100 WBC [facility] % Neutros 57 % [facility] % Lymphs 29 % [facility] % Monos 10 % [facility] % Eos 3 % [facility] % Baso 1 % [facility] # Neutros 3.35 1.78 - 5.38 K/L [facility] # Lymphs 1.70 1.32 - 3.57 K/L [facility] # Monos 0.62 0.30 - 0.82 K/L [facility] # Eos 0.20 0.04 - 0.54 K/L [facility] # Baso 0.05 0.01 - 0.08 K/L [facility] Immature 0 0 - 1 % [facility] Granulocytes-[facility] Specimen Blood Performing Organization Address City/State/Zipcode Phone Number [facility] [address] [place] [address] [facility] * Comprehensive metabolic panel (05/22/2018 6:43 AM CDT) Only the most recent of 3 results within the time period is included. Protein, Total 6.7 6.0 - 8.3 gm/dL [facility] Albumin 3.9 3.5 - 5.0 g/dL [facility] Alkaline Phosphatase 69 40 - 150 U/L [facility] Total Bilirubin 0.4 0.2 - 1.2 mg/dL [facility] Sodium 144 136 - 145 meq/L [facility] Potassium 4.6 3.5 - 5.1 meq/L [facility] Chloride 113 (H) 98 - 107 meq/L [facility] CO2 22 22 - 29 meq/L [facility] BUN 74 (H) 7 - 21 mg/dL [facility] Creatinine 5.24 (H) 0.57 - 1.25 mg/dL [facility] Glucose 101 70 - 105 mg/dL [facility] Calcium 9.4 8.4 - 10.2 mg/dL [facility] AST 14 5 - 34 U/L [facility] ALT 13 6 - 55 U/L [facility] EGFR 11Comment: ESTIMATED GFR IS mL/min/1.73 sq m [facility] NOT ACCURATE CREATININE [facility] CLEARANCE IN PREDICTING GLOMERULAR FILTRATION RATE. ESTIMATED GFR IS NOT APPLICABLE FOR DIALYSIS PATIENTS. Specimen Blood Performing Organization Address City/[facility] Phone Number [address] * Hepatitis A antibody, IgG ([facility] Only) (04/30/2018 12:17 PM CDT) Hep A IgG Nonreactive Nonreactive [facility] Specimen Blood Performing Organization Address [facility] Phone Number [address] * Hepatitis A antibody, IgM (04/30/2018 12:17 PM CDT) Hep A IgM HEPATITIS A TEST NEGATIVE Nonreactive [facility] Specimen Blood Performing Organization Address [facility] Phone Number [address] * Liver Fibrosis, FibroTest-ActiTest Panel (04/30/2018 10:42 AM CDT) Fibrosis Score [facility] Fibrosis Stage [facility] FIBROSIS INTERPRETATION [facility] Necroinflammat Activity [facility] NECROINFLAMMAT INTERP [facility] Bilirubin, Total [facility] GGT [facility] ALT (SGPT) [facility] ALPHA 2 MACROGLOBULIN [facility] Haptoglobin [facility] Apolipoprotein A-1 [facility] Necroinflammat Activity [facility] Score INCORPORATED Narrative Performed At Performing Organization Address City/[facility] Phone Number [facility], [address] [place], [place] INCORPORATED [facility] [address] * Mitochondrial Antibodies, M2 (04/30/2018 10:42 AM CDT) Mitochondria M2 Ab <20.0 See Note: U [facility] Comment: INCORPORATED Reference Range: NEGATIVE:< OR=20.0 EQUIVOCAL: 20.1-24.9 POSITIVE:> OR=25.0 Specimen Blood Narrative Performed At Performing Lab [facility] [address] [address] Trav Schwartz MD, PhD, ESTRELLITA Performing Organization Address [facility] Phone Number [employer] [facility] [employer], [address] [place], [place] [address] [address] * Iron, TIBC, % sat. (without ferritin) (04/30/2018 10:42 AM CDT) Iron 75 40 - 160 ug/dL [facility] TIBC 350 250 - 450 ug/dL [facility] Iron % Saturation 21 20 - 55 % [facility] Specimen Blood Performing Organization Address [facility] Phone Number [facility] [address] * Actin (Smooth Muscle) Antibody, IgG (04/30/2018 10:42 AM CDT) Anti-Smooth Muscle Ab <20 See Note: U [facility] Comment: INCORPORATED Reference Range: <20 NEGATIVE > OR=20 POSITIVE Antibodies recognizing actin are the main component of smooth muscle antibodies associated with autoimmune liver disease. Actin antibodies are found in approximately 75% of patients with autoimmune hepatitis (AIH) type 1, approximately 65% of patients with autoimmune cholangitis, approximately 30% of patients with primary biliary cirrhosis, and approximately 2% of healthy people. High values are closely correlated with AIH type 1. Specimen Blood Narrative Performed At Performing Lab [facility] [employer] [address] [address] Trav Schwartz MD, PhD, ESTRELLITA Performing Organization Address [facility] Phone Number [employer] [place], [address] [place], [place] [address] [address] * Cliaq-6-Avflywjmnxi (04/30/2018 10:42 AM CDT) A-1 Antitrypsin 165.60 90.00 - 200.00 mg/dL [facility] Specimen Blood Performing Organization Address City/[facility]/Zipcode Phone Number [facility] [address] [place] [address] [facility] * Ceruloplasmin (04/30/2018 10:42 AM CDT) Ceruloplasmin 30 18 - 36 mg/dL [facility] Comment: INCORPORATED Adults:Males: 18-36 mg/dL Fe males: 18-53 mg/dL Pediatrics: Males (mg/dL)Females (mg/dL) ------ 0-30 Days 8-25 3-28 31 Days-11 Month 15-481 5-43 1-3 Years2 5 -54 4-6 Years2 9-56 -54 7-9 Years2 [address] -48 10-12 Yvlow53-52 21-48 13-15 Tybuu23-14 21-46 16-18 Zirwm10-76 22-50 The pediatric ranges are derived from the following criteria: Mckenzie SJ, Srinivasan SANCHEZ, Zaida J et al Pediatric reference ranges for Bcba-0-Fxvcklacenwdt and ceruloplasmin. Clin. Chem 1997; 43:S1999 Pediatric Reference Ranges, 2nd., [place] Mckenzieet al. editors. [employer], [place], [place] 1997. Specimen Blood Narrative Performed At Performing Lab [facility] *SPL INCORPORATED [facility] [address] [place], [address] [place] [address] MD, PhD Performing Organization Address City/[facility]/Zipcode Phone Number [facility] [employer] [place], [address] [place], [place] INCOR[place] [facility] [address] * Alpha fetoprotein (AFP), tumor marker (04/30/2018 10:42 AM CDT) Alpha-Fetoprotein <2.0 <10.0 ng/mL [facility] Specimen Blood Performing Organization Address City/[facility]/Zipcode Phone Number [address] [phone] [facility] * Hepatitis B surface antibody (04/30/2018 10:42 AM CDT) Only the most recent of 2 results within the time period is included. Hep B S Ab <8.0 <8.0 mIU/mL [facility] Specimen Blood Performing Organization Address City/[facility] Phone Number [address] [address] [facility] * Pro-time/INR (04/30/2018 10:42 AM CDT) Protime 14.2 11.7 - 14.7 seconds [facility] INR 1.1 <=5.9 [facility] Specimen Blood Narrative Performed At RECOMMENDED COUMADIN/WARFARIN INR THERAPY RANGES [facility] STANDARD DOSE: 2.0 - 3.0 Includes: PROPHYLAXIS for venous thrombosis, [facility] systemic embolization; TREATMENT for venous thrombosis and/or pulmonary embolus. HIGH RISK: Target INR is 2.5-3.5 for patients with mechanical heart valves. Performing Organization Address [facility] [place] [address] [facility] * Anti-Nuclear Antibody (CARRILLO) (04/30/2018 10:42 AM CDT) CARRILLO Negative Negative [facility] Specimen Blood Narrative Performed At Test performed by IFA method. [facility] Test performed by IFA method. [facility] Performing Organization Address [facility] Phone Number [address] [address] [facility] * Ferritin (04/30/2018 10:42 AM CDT) Ferritin 228 5 - 275 ng/mL [facility] Specimen Blood Performing Organization Address City/[facility]/Zipcode Phone Number [address] [address] [phone] * Bilirubin, direct (04/30/2018 10:42 AM CDT) Bilirubin, Direct 0.2 0.1 - 0.5 mg/dL [facility] Specimen Blood Performing Organization Address City/[facility] Phone Number [place] [phone] * TRANSFUSION SERVICE REPORT - SCAN (04/04/2018 6:03 PM CDT) Only the most recent of 2 results within the time period is included. Narrative Performed At * Lipid panel (04/03/2018 8:53 AM CDT) Triglycerides 68 mg/dL [facility] Cholesterol 115 mg/dL [facility] HDL 51 mg/dL [facility] LDL Calculated 50 mg/dL [facility] Specimen Blood Narrative Performed At Triglyceride Reference Range: [facility] Low Risk <150 [facility] [id number] High Risk 200-499 Very High Risk>=500 Cholesterol Reference Range: Low Risk <200 Cvvjghbbre220-548 High Risk>240 HDL Cholesterol Reference Range: Low Risk >=60 High Risk <40 LDL Cholesterol Reference Range: Optimal<100 Near Opmwzny526-343 Rsjtfneyhf939-402 Vewk855-280 Very High >=190 Performing Organization Address [facility] Phone Number [place] [phone] [place] [address] * Type and Screen, Automated (04/03/2018 8:49 AM CDT) ABO/RH AUTOMATED (BEAKER) O POSITIVE [facility] Ab Scrn NEGATIVE [facility] Specimen Blood Performing Organization Address City/[facility] Phone Number [address] [address] [phone] [place] [address] * US abdomen complete (02/28/2018 1:40 PM CDT) Narrative Performed At FINAL REPORT [facility] TECHNIQUE: Grayscale ultrasound of the abdomen. INDICATION: 67-year-old man for renal transplant evaluation. COMPARISON: None. FINDINGS: MIDLINE VASCULATURE: The visualized inferior vena cava is patent. Portal vein is patent it measures 1.1 cm in diameter. The maximum visualized aortic diameter is 2.8 cm. LIVER: The liver is within normal limits in size. Increased echogenicity of the liver, consistent with hepatic steatosis. Smooth liver contour. No focal lesions. BILIARY: Gallbladder: No gallstones or sludge. No gallbladder wall thickening, pericholecystic fluid, or distention. Negative sonographic Cortes sign. Common bile duct measures 0.4 cm, within normal limits. No intrahepatic biliary ductal dilatation. PANCREAS: Incompletely visualized due to overlying bowel gas. SPLEEN: No splenomegaly. PERITONEUM: No free fluid. KIDNEYS: The right kidney measures 13.5 cm in length and the left kidney measures 11.2 cm in length. No hydronephrosis. No sonographically evident solid mass lesion. Right renal cyst measures 1.5 x 1.1 x 1.5 cm. IMPRESSION: Hepatic steatosis. Signed: Maritza Miller MD Report Verified Date/Time:02/28/2018 15:23:22 Reading Location: [address] Radiology Reading Room Procedure Note Interface, External Ris In - 03/19/2018 2:15 PM CDT FINAL REPORT TECHNIQUE: Grayscale ultrasound of the abdomen. INDICATION: 67-year-old man for renal transplant evaluation. COMPARISON: None. FINDINGS: MIDLINE VASCULATURE: The visualized inferior vena cava is patent. Portal vein is patent it measures 1.1 cm in diameter. The maximum visualized aortic diameter is 2.8 cm. LIVER: The liver is within normal limits in size. Increased echogenicity of the liver, consistent with hepatic steatosis. Smooth liver contour. No focal lesions. BILIARY: Gallbladder: No gallstones or sludge. No gallbladder wall thickening, pericholecystic fluid, or distention. Negative sonographic Cortes sign. Common bile duct measures 0.4 cm, within normal limits. No intrahepatic biliary ductal dilatation. PANCREAS: Incompletely visualized due to overlying bowel gas. SPLEEN: No splenomegaly. PERITONEUM: No free fluid. KIDNEYS: The right kidney measures 13.5 cm in length and the left kidney measures 11.2 cm in length. No hydronephrosis. No sonographically evident solid mass lesion. Right renal cyst measures 1.5 x 1.1 x 1.5 cm. IMPRESSION: Hepatic steatosis. Signed: Maritza Miller MD Report Verified Date/Time: 02/28/2018 15:23:22 Reading Location: [address] Radiology Reading Room Performing Organization Address [facility] Phone Number [facility] * XR chest 2 views (02/28/2018 11:28 AM CDT) Narrative Performed At FINAL REPORT GE [facility] History: End-stage renal disease, renal transplant evaluation Comparison: None Findings: 4 mm nodular density in the mid right lung may represent a blood vessel on end versus calcified granuloma. No pleural effusions or pneumothorax. The heart shadow is normal in size. The thoracic aorta is mildly tortuous. Degenerative and hypertrophic changes are present in the spine. Attenuation of the distal right clavicle may be posttraumatic or postoperative. Impression: No evidence of acute cardiopulmonary disease. Signed: Harpal Romo MD Report Verified Date/Time:02/28/2018 12:42:19 Reading Location: [facility] Radiology Reading Room Procedure Note Interface, External Ris In - 02/28/2018 12:44 PM CDT FINAL REPORT History: End-stage renal disease, renal transplant evaluation Comparison: None Findings: 4 mm nodular density in the mid right lung may represent a blood vessel on end versus calcified granuloma. No pleural effusions or pneumothorax. The heart shadow is normal in size. The thoracic aorta is mildly tortuous. Degenerative and hypertrophic changes are present in the spine. Attenuation of the distal right clavicle may be posttraumatic or postoperative. Impression: No evidence of acute cardiopulmonary disease. Signed: Harpal Romo MD Report Verified Date/Time: 02/28/2018 12:42:19 Reading Location: [facility] Radiology Reading Room Performing Organization Address [facility] Phone Number [facility] * Urinalysis, Routine (02/28/2018 8:27 AM CDT) Color, UA Light Yellow [facility] Clarity, UA Clear [facility] Specific [place], UA 1.009 1.001 - 1.035 [facility] pH, UA 6.5 5.0 - 8.0 [facility] Protein, UA 300 mg/dL (A) Negative [facility] Glucose, UA Negative Negative [facility] Ketones, UA Negative Negative [facility] Bilirubin, UA Negative Negative [facility] Blood, UA Negative Negative [facility] Nitrite, UA Negative Negative [facility] Leukocytes, UA Negative Negative [facility] Urobilinogen, UA 0.2 0.2 - 1.0 mg/dL [facility] RBC, UA 1 /HPF [facility] WBC, UA 1 /HPF [facility] Bacteria, UA Rare [facility] Mucus Rare [facility] Squam Epithel, UA <1 /HPF [facility] Specimen Source [facility] Specimen Urine Performing Organization Address City/[facility]/Zipcode Phone Number [facility] [address] [place] [address] [place] [address] [phone] * Urine Culture (02/28/2018 8:27 AM CDT) Result No growth [facility] Specimen Urine Performing Organization Address City/[facility]/Zipcode Phone Number [phone] [place] [address] [phone] [address] * Uric Acid (02/28/2018 8:27 AM CDT) Uric Acid 7.0 2.6 - 7.2 mg/dL [facility] Specimen Blood Performing Organization Address City/[facility]/[place] [address] [phone] [place] [address] * Phosphorus (02/28/2018 8:27 AM CDT) Phosphorus 4.8 (H) 2.3 - 4.7 mg/dL [facility] Specimen Blood Performing Organization Address City/[facility] Phone Number [place] [phone] * Lactate Dehydrogenase (LDH) (02/28/2018 8:27 AM CDT) LDH 230 (H) 125 - 220 U/L [facility] Specimen Blood Performing Organization Address [facility] Phone Number [place] [phone] * Gamma Glutamyl Transferase (GGT) (02/28/2018 8:27 AM CDT) GGT 26 9 - 64 U/L [facility] Specimen Blood Performing Organization Address [facility] Phone Number [address] * T Spot TB (02/28/2018 8:26 AM CDT) T-Spot TB Negative [facility] Neg Ctrl Spot Count 0 [facility] Panel A Spot 1 [facility] Panel B Spot 0 [facility] Pos Ctrl Spot Ct 0 [facility] Scan Result [facility] Specimen Blood Narrative Performed At Performing Organization Address City/[facility]/Zipcode Phone Number [facility] [address] [place] [address] LABORATORIES 100 * HIV-1 Antigen with HIV-1/2 Antibody (02/28/2018 8:26 AM CDT) HIV-1 Antigen with HIV NON-REACTIVE Nonreactive [facility] 1&2 Antibody [facility] Specimen Blood Performing Organization Address City/[facility]/[place] [address] MEDICAL CENTER * Hepatitis C Antibody (02/28/2018 8:26 AM CDT) Hepatitis C Ab NON-REACTIVE Nonreactive [facility] Specimen Blood Performing Organization Address City/State/Zipcode Phone Number [phone] [place] [address] [facility] * Cytomegalovirus antibody, IgM (02/28/2018 8:26 AM CDT) CMV IgM Negative [facility] Specimen Blood Performing Organization Address City/[facility]/Zipcode Phone Number [phone] [place] [address] * Hepatitis B core antibody, IgM (02/28/2018 8:26 AM CDT) Hep B C IgM NON-REACTIVE Nonreactive [facility] Specimen Blood Performing Organization Address City/[facility]/Zipcode Phone Number [phone] [place] [address] * EBV-VCA antibody, IgM (02/28/2018 8:26 AM CDT) EBV VCA IgM Negative [facility] Specimen Blood Performing Organization Address [facility] Phone Number [phone] [place] [address] [facility] * EBV-VCA antibody, IgG (02/28/2018 8:26 AM CDT) EBV VCA IgG Positive [facility] Specimen Blood Performing Organization Address City/State/Zipcode Phone Number [phone] [place] [address] * RPR (02/28/2018 8:26 AM CDT) RPR Nonreactive Nonreactive [facility] Specimen Blood Performing Organization Address City/State/Zipcode Phone Number [phone] [place] [address] MEDICAL [facility]ENTER * Hepatitis B surface antigen (02/28/2018 8:26 AM CDT) hepatitis B Surface Ag NON-REACTIVE Nonreactive [facility] Specimen Blood Performing Organization Address [facility] Phone Number [address] * Cytomegalovirus antibody, IgG (02/28/2018 8:26 AM CDT) CMV IgG Positive [facility] Specimen Blood Performing Organization Address City[facility] Phone Number [address] * Varicella Zoster Antibody, IgG (02/28/2018 8:26 AM CDT) Varicella IgG 4.4 Al [facility] Specimen Blood Narrative Performed At VARICELLA ZOSTER RESULT INTERPRETATIONS: [facility] <=0.8 AlNonreactive:Presumed non-immune to VZV [facility] 0.9-1.0 AlEquivocal >=1.1 AlReactive:Presumed immune to VZV Performing Organization Address [facility] Phone Number [address] * PSA (02/28/2018 8:26 AM CDT) PSA 1.6 0.0 - 4.0 ng/mL [facility] Specimen Blood Performing Organization Address City[facility] Phone Number [phone] [place] [address] * PTH, Intact (02/28/2018 8:26 AM CDT) PTH 96.8 (H) 8.5 - 72.5 pg/mL [facility] Specimen Blood Performing Organization Address City[facility] Phone Number [address] * HLA TYPING CII (02/28/2018 8:25 AM CDT) HLA-DR AG1 17 [facility] HLA TESTING HLA-DR AG2 17 [facility] HLA TESTING HLA-DR AG3-1 52 [facility] HLA TESTING HLA-DR AG3-2 52 [facility] HLA TESTING HLA-DR AG4-1 [facility] HLA TESTING HLA-DR AG4-2 [facility] HLA TESTING HLA-DR AG5-1 [facility] HLA TESTING HLA-DR AG5-2 [facility] HLA TESTING HLA-DQA1 AG 1-1 05 [facility] HLA TESTING HLA-DQA1 AG 1-2 05 [facility] HLA TESTING HLA-DQB1 AG 1-1 2 [facility] HLA TESTING HLA-DQB1 AG 1-2 2 [facility] HLA TESTING HLA-DPA1 AG 1-1 02 [facility] HLA TESTING HLA-DPA1 AG 1-2 02 [facility] HLA TESTING HLA-DPB1 AG 1-1 01:01 [facility] HLA TESTING HLA-DPB1 AG 1-2 124:01 [facility] HLA TESTING HLA-AG Notes [facility] HLA TEST[facility] HLA-AG Report Comments [facility] HLA TESTING Specimen Blood Performing Organization Address City[facility] Phone Number [facility] HLA TESTING ONE [facility] [place], [place]: [id number], [place] [address] CLIA#[id number] CAP#[id number] UNOS#[id number] * HLA TYPING CI (02/28/2018 8:25 AM CDT) HLA-A AG1 1 [facility] HLA TESTING HLA-A AG2 2 [facility] HLA TESTING HLA-B AG1 8 [facility] HLA TESTING HLA-B AG2 61 [facility] HLA TESTING HLA-C AG1 7 [facility] HLA TESTING HLA-C AG2 15 [facility] HLA TESTING HLA-B BW1 6 [facility] HLA TESTING HLA-B BW2 6 [facility] HLA TESTING HLA-AG Notes [facility] HLA TESTING HLA-AG Report Comments [facility] HLA TESTING Specimen Blood Performing Organization Address City[facility] Phone Number [facility] HLA TESTING ONE [facility] [place], [place]: [id number], [place] [address] CLIA#[id number] CAP#[id number] UNOS#[id number] * FLOW PRA CLASS II WITH REFLEX TO ANTIBODY SPECIFICITY (02/28/2018 8:25 AM CDT) Flow Class II Percent 0 [facility] HLA TESTING Positive Flow Class Report [facility] HLA TESTING Comments Specimen Blood Performing Organization Address City/[facility] Phone Number [facility] HLA TESTING ONE [facility] [place], [place]: [id number], [place] [address] CLIA#[id number] CAP#[id number] UNOS#[id number] * FLOW PRA CLASS I WITH REFLEX TO ANTIBODY SPECIFICITY (02/28/2018 8:25 AM CDT) Flow Class I Percent 0 [facility] HLA TESTING Positive Flow Class Report [facility] HLA TESTING Comments Specimen Blood Performing Organization Address City/[facility] Phone Number [facility] HLA TESTING ONE [facility] [place], [place]: [id number], [place] [address] CLIA#[id number] CAP#[id number] UNOS#[id number] * Blood typing, automated (02/28/2018 8:25 AM CDT) ABO/RH AUTOMATED (BEAKER) O POSITIVE [facility] Specimen Blood Performing Organization Address [facility] Phone Number [address] * Direct AHG (SUKHDEEP)/Direct Mil (02/28/2018 8:25 AM CDT) Direct AHG-IGG NEGATIVE [facility] Direct AHG-C3B, C3D NEGATVIE [facility] Specimen Blood Performing Organization Address [facility] Phone Number [address] * Hemoglobin A1c (02/28/2018 8:25 AM CDT) Hemoglobin A1C 6.0 4.3 - 6.1 % [facility] Specimen Blood Performing Organization Address [facility] Phone Number [address] after 11/26/2017 Insurance Payer Benefit Subscriber ID Type Phone Address Plan / Group MEDICARE MEDICARE A xxxxxxxxxx Medicare B AETNA - MGD CARE AETNA xxxxxxxxxx Comm INDEMNITY NON CONTR Advance Directives For more information, please contact: [facility] [address] [place] [address] Date Inactivated Comments Code Status Date Activated 05/22/2018 10:36 PM Full Code 05/22/2018 11:53 AM This code status was determined by: Patient 05/04/2017 7:38 PM Full Code 05/02/2017 2:10 AM This code status was determined by: Patient
--- OUTSIDE RECORDS SUMMARY | 2018-11-27 10:47 | XMS REPORT | CCD ---
Author Author Auto Generated Organization [facility] Address Unknown Phone Unavailable Care Team Providers Care Public Relations Writer Name Role Phone Radhames Evans CP Allergies, Adverse Reactions, Alerts Substance Reaction Status NKDA Active Problem List Condition Effective Dates Status Diabetes mellitus type II Active History of repair of umbilical hernia Active HTN - Hypertension Active Knee replacement < 07/13/2011 Inactive Obesity Active Pulmonary asbestosis Active Sleep apnea Active Medications Medication Instructions Start Date End Date Status influenza virus 0.5 ml, Route: IM, Drug Form: INJ, 07/14/2011 07/14/2011 Completed vaccine, inactivated Start date: 07/14/11 9:00:00, Stop date: 07/14/11 9:00:00 Immunizations Vaccine Date Status influenza virus vaccine, inactivated 07/14/2011 Auth (Verified)
--- OUTSIDE RECORDS SUMMARY | 2018-11-27 10:47 | XMS REPORT | Summary of Care ---
Author Author [facility] Outpatient Imaging [facility] Outpatient Imaging [facility] Address Unknown Phone Unavailable Encounter HQ Carol_[email or web address](FIN) [phone] Date(s): 01/25/16 - 01/25/16 [facility] Outpatient Imaging [facility] [address] [address], [address] [place], [place] [address] [phone] Discharge Disposition: Home Attending Physician: Aleena Robbins DO Vital Signs No data available for this section Problem List Condition Effective Dates Status Health Status Informant Diabetes mellitus Active type II(Confirmed) History of repair of Active umbilical hernia(Confirmed) HTN - Active Hypertension(Confirm ed) Obesity(Confirmed) Active Pulmonary Active asbestosis(Confirmed ) Sleep Active apnea(Confirmed) Allergies, Adverse Reactions, Alerts Substance Reaction Severity Status NKDA Active Medications No data available for this section Results No data available for this section Immunizations Vaccine Date Refusal Reason influenza virus vaccine, inactivated 07/14/11 Procedures No data available for this section Social History Social History Type Response Assessment and Plan No data available for this section
--- OUTSIDE RECORDS SUMMARY | 2018-11-27 10:47 | XMS REPORT | CCD ---
Author Author Auto Generated Organization [facility] Address Unknown Phone Unavailable Care Team Providers Care Psychologist Industrial Organizational Name Role Phone Jonathan Gomez RP Allergies, Adverse Reactions, Alerts Substance Reaction Status NKDA Active Problem List Condition Effective Dates Status Diabetes mellitus type II Active History of repair of umbilical hernia Active HTN - Hypertension Active Knee replacement < 07/13/2011 Inactive Obesity Active Pulmonary asbestosis Active Sleep apnea Active Medications Medication Instructions Start Date End Date Status Lactated Ringers 1,000 mL, Rate: 25 ml/hr, Infuse 07/11/2012 07/11/2012 Discontinued Injection IV 1,000 over: 40 hr, Route: IV, kg, Total mL Volume: 1,000, Start date: 07/11/12 10:18:00, Duration: 30 day, Stop date: 08/10/12 10:17:00 influenza virus 0.5 ml, Route: IM, Drug Form: INJ, 07/14/2011 07/14/2011 Completed vaccine, inactivated Start date: 07/14/11 9:00:00, Stop date: 07/14/11 9:00:00 Immunizations Vaccine Date Status influenza virus vaccine, inactivated 07/14/2011 Auth (Verified) Vital Signs Most recent to oldest [Reference Range]: 1 2 3 Height 170.18 cm (07/11/2012 10:09:00) Respiratory Rate [14-20 BRMIN] 18 BRMIN (07/11/2012 12:13:00) 18 BRMIN (07/11/2012 11:50:00) 16 BRMIN (07/11/2012 11:35:00) Weight 115.000 kg (07/11/2012 10:09:00) Results CHEMISTRY Most recent to oldest [Reference Range]: 1 Sodium Lvl [135-145 mEq/L] 144 mEq/L (07/11/2012 10:40:00) Potassium Lvl [3.5-5.1 mEq/L] 4.0 mEq/L (07/11/2012 10:40:00) Chloride Lvl [95-109 mEq/L] 110 mEq/L *HI* (07/11/2012 10:40:00) CO2 [24-32 mEq/L] 30 mEq/L (07/11/2012 10:40:00) AGAP [10.0-20.0 mEq/L] 8.0 mEq/L *LOW* (07/11/2012 10:40:00) Creatinine Lvl [0.5-1.4 mg/dL] 1.6 mg/dL *HI* (07/11/2012 10:40:00) BUN [7-22 mg/dL] 27 mg/dL *HI* (07/11/2012 10:40:00) B/C Ratio [6-25] 17 (07/11/2012 10:40:00) Glucose Lvl [70-99 mg/dL] 90 mg/dL 1 (07/11/2012 10:40:00) Total Protein [6.4-8.4 g/dL] 6.6 g/dL (07/11/2012 10:40:00) Albumin Lvl [3.5-5.0 g/dL] 3.5 g/dL (07/11/2012 10:40:00) Globulin [2.0-4.0 g/dL] 3.1 g/dL (07/11/2012 10:40:00) A/G Ratio [0.7-1.6] 1.1 (07/11/2012 10:40:00) Calcium Lvl [8.5-10.5 mg/dL] 8.6 mg/dL (07/11/2012 10:40:00) ALT [0-65 unit/L] 24 unit/L (07/11/2012 10:40:00) AST [0-37 unit/L] 18 unit/L (07/11/2012 10:40:00) Alk Phos [39-136 unit/L] 58 unit/L (07/11/2012 10:40:00) Bili Total [0.2-1.3 mg/dL] 0.6 mg/dL (07/11/2012 10:40:00) 1Interpretive Data: Adult reference range values reflect the clinical guidelines of the [place] [employer]. HEMATOLOGY Most recent to oldest [Reference Range]: 1 WBC [3.7-10.4 K/CMM] 6.5 K/CMM (07/11/2012 11:38:00) RBC [4.70-6.10 M/CMM] 4.65 M/CMM *LOW* (07/11/2012 11:38:00) Hgb [14.0-18.0 g/dL] 14.0 g/dL (07/11/2012 11:38:00) Hct [42.0-54.0 %] 40.9 % *LOW* (07/11/2012 11:38:00) MCV [80.0-94.0 fL] 87.9 fL (07/11/2012 11:38:00) MCH [27.0-31.0 pg] 30.2 pg (07/11/2012 11:38:00) MCHC [32.0-36.0 g/dL] 34.3 g/dL (07/11/2012 11:38:00) RDW [11.5-14.5 %] 13.8 % (07/11/2012 11:38:00) Platelet [133-450 K/CMM] 136 K/CMM (07/11/2012 11:38:00) MPV [7.4-10.4 fL] 9.4 fL (07/11/2012 11:38:00) Segs [45.0-75.0 %] 61.0 % (07/11/2012 11:38:00) Lymphocytes [20.0-40.0 %] 26.0 % (07/11/2012 11:38:00) Monocytes [2.0-12.0 %] 9.6 % (07/11/2012 11:38:00) Eosinophils [0.0-4.0 %] 2.8 % (07/11/2012 11:38:00) Basophils [0.0-1.0 %] 0.6 % (07/11/2012 11:38:00) Segs-Bands # [1.5-8.1 K/CMM] 4.0 K/CMM (07/11/2012 11:38:00) Lymphocytes # [1.0-5.5 K/CMM] 1.7 K/CMM (07/11/2012 11:38:00) Monocytes # [0.0-0.8 K/CMM] 0.6 K/CMM (07/11/2012 11:38:00) Eosinophils # [0.0-0.5 K/CMM] 0.2 K/CMM (07/11/2012 11:38:00) Basophils # [0.0-0.2 K/CMM] 0.0 K/CMM (07/11/2012 11:38:00)
--- OUTSIDE RECORDS SUMMARY | 2018-11-27 10:47 | XMS REPORT ---
Author Author [facility] Address Unknown Phone Unavailable Care Team Providers Care Milling Machine Set Up Operator Name Role Phone Zenobia ORTEGA Unavailable Unavailable Shahnaz RAI Unavailable Unavailable Mina SENIOR Unavailable Unavailable JANE CORREA Unavailable Unavailable Payers Payer Name Policy Type Policy Number Effective Date Expiration Date Problems This patient has no known problems. Allergies, Adverse Reactions, Alerts Allergy Name Allergy Type Status Severity Reaction(s) Onset Date Inactive Date Treating Clinician Comments No Known Allergies DA Active U 2018-02-15 00:00:00 Medications This patient has no known medications. Results Test Description Test Time Test Comments Text Results Atomic Results Result Comments TISSUE EXAM 2018-06-29 10:30:00 Surgical Pathology Report Case: [id number] Authorizing Provider: Trino Ortega MD Collected: 06/28/2018 1218 Ord ering Location: [facility] Endoscopy Received: 06/28/2018 1526 Services Pathologist: Elton Casillas MD Specimen: Polyp, Colon - Cecum CECUM POLYP, BIOPSY- COLONIC MUCOSA, WITHIN NORMAL LIMITS Signing Pathologist Direct Phone Line: [phone] signed by Elton Casillas MD on 06/29/2018 at 10:30 [id number] liverCecum colon polyp The specimen is received in a formalin-filled container labeled with the patient's information and labeled "cecum polyp" and consists of five fragments of cárdenas tissue ranging from 0.1 to 0.6 cm submitted entirely in A1. CG/ew Sections reveal pieces of benign colonic mucosa with mild chronic inflammation within the lamina propria. There is no evidence of polyp. Few macrophages containing granular brown pigment suggestive of melanosis coli are seen in lamina propria. Normal crypt architecture is seen with no evidence of granulomatous inflammation or acute colitis. Features of collagenous colitis, inflammatory bowel disease, and lymphocytic colitis are not seen. Adenomatous change, dysplasia, and malignancy are not seen. POCT-GLUCOSE METER 2018-06-28 13:02:00 POC-GLUCOSE METER (BEAKER) (test pbjt=1305) 152 mg/dL 70-110 TESTED AT [facility] [address] [facility] [address] POCT-GLUCOSE [id number] 11:13:00* Test Item Value Reference Range Comments POC-GLUCOSE METER (BEAKER) (test qmfn=9793) 211 mg/dL 70-110 TESTED AT [facility] [address] [facility] [address] OCCULT BLOOD, [id number] 08:19:00* Test Item Value Reference Range Comments FECAL OCCULT BLOOD (BEAKER) (test hzcz=081) Negative Negative OCCULT BLOOD, [id number] 08:19:00* Test Item Value Reference Range Comments FECAL OCCULT BLOOD (BEAKER) (test rljn=890) Negative Negative TISSUE [id number] 15:08:00Surgical Pathology Report Case: [id number] Authorizing Provider: Trino Ortega MD Collected: 05/22/2018 1101 Ordering Location: [place] [address] OP Received: 05/22/2018 1332 Pathologist: Meaghan Leal MD Specimen: Biopsy, Liver LIVER, TRANSJUGULARRANDOM NEEDLE CORE BIOPSY: - FATTY LIVER DISEASE, PORTAL FIBROSIS WITH BRIDGING, (STAGE 3) - MILD MACROSTEATOSIS - MINIMAL LOBULAR INFLAMMATION - NONSPECIFIC PATCHY PORTAL INFLAMMATION SJ/pl Signing Pathologist Direct Phone Line: [phone] signed by Meaghan Leal MD on 05/24/2018 at 3:08 [id number] male with AST 14, ALT 13, alkaline phosphatase 69, total bilirubin 0.4. Platelets 150. CARRILLO negative. ASMA negative. No significant viral hepatitis panel. The findings are consistent with fatty liver disease with the poratal fibrosis with bridging (stage 3). [id number] X4Rule out cirrhosis Transjugular liver biopsyThe specimen is received in a formalin-filled container and labeled with the patient's information and labeled "transjugular liver biopsy" and consists of two cárdenas-red core biopsies measuring 1.5 x 1.7 cm in length. Submitted A1. CG/pl Two large liver cores with adequate number of portal triads and preserved hepatic parenchyma. There is mild macrosteatosis noted in the perivenular area. The lobules show minimal to mild lobular inflammation. Rare portal traid with significant inflammation with no significant bile duct destruction or interface hepatitis noted. Focal triads as well as perivenular areas show expansion with few short septa suggestive of stage 3 fibrosis. PASD is negative for Alpha-1 antitrypsin globule. Iron stain is negative for incre ased iron. Reticulin supports the normal framework.ANG, TRANSCATHETER BIOPSY 2018-05-22 14:18:00Refjose Sanchez: Allyson Scott md: Allyson RaiSpecify Organ:->Transjugulra liver biopsyReason for Exam:->r/o cirrhosis with portal pressure measurementsFINAL REPORT History: Abnormal liver function tests. PROCEDURE: [...] the right internal jugular vein. A 9 Tuvaluan sheath was placed at the access site. A 5 Tuvaluan multipurpose catheter was placed over a wire [...] compression. Following a discussion with the referring sports medicine coordinator, Dr. Fernandez, by telephone, the patient's abdominal [...] There is a relatively acute angle of th e hepatic vein with the IVC which prevented placement of the biopsy sheath and a safe position. Pressure measurements within the liver or obtained as follows: W edged hepatic pressure: 10 mmHgFree hepatic pressure: 8 mmHgRight atrial pressur e: 6 mmHg Ultrasound images obtained during the percutaneous biopsy demonstrate the biventricular needle in expected position within the right hepatic lobe. Aft er the biopsies, there are no perihepatic fluid collections or evidence for hemo rrhage. IMPRESSION: 1. Successful uncomplicated ultrasound-guided percutaneous c ore biopsy of the liver. Attempts to perform transjugular liver biopsy were unsu ccessful due to patient's hepatic venous anatomy. Hepatic pressures, however, we re successfully obtained as described in detail above. Total fluoroscopy time: 4.1 minutes. Estimated total patient dose reported as (Ka,r): 101 mGy Signed: Nanda Hurtado [facility] Verified Date/Time: 05/22/2018 14:18:18 Reading Location: [place] [address] Angio Body Reading Room REHENSIVE METABOLIC [id number] 07:10:00 * Test Item Value Reference Range Comments TOTAL PROTEIN (BEAKER) (test qxcj=312) 6.7 gm/dL 6.0-8.3 ALBUMIN (BEAKER) (test vmsl=9605) 3.9 g/dL 3.5-5.0 ALKALINE PHOSPHATASE (BEAKER) (test wwxi=908) 69 U/L 40-150 BILIRUBIN TOTAL (BEAKER) (test fxir=509) 0.4 mg/dL 0.2-1.2 SODIUM (BEAKER) (test hkue=760) 144 meq/L 136-145 POTASSIUM (BEAKER) (test fezz=178) 4.6 meq/L 3.5-5.1 CHLORIDE (BEAKER) (test nawm=002) 113 meq/L 98-107 CO2 (BEAKER) (test gdtk=489) 22 meq/L 22-29 BLOOD UREA NITROGEN (BEAKER) (test bwhm=564) 74 mg/dL 7-21 CREATININE (BEAKER) (test dhaf=403) 5.24 mg/dL 0.57-1.25 GLUCOSE RANDOM (BEAKER) (test infn=001) 101 mg/dL 70-105 CALCIUM (BEAKER) (test sjxs=032) 9.4 mg/dL 8.4-10.2 AST (SGOT) (BEAKER) (test xqet=102) 14 U/L 5-34 ALT (SGPT) (BEAKER) (test xryw=003) 13 U/L 6-55 EGFR (BEAKER) (test flco=8740) 11 mL/min/1.73 sq m ESTIMATED GFR IS NOT ACCURATE CREATININE CLEARANCE IN PREDICTING GLOMERULAR FILTRATION RATE. ESTIMATED GFR IS NOT APPLICABLE FOR DIALYSIS PATIENTS. PT/[id number] 07:06:00* Test Item Value Reference Range Comments PROTIME (BEAKER) (test scev=451) 15.9 seconds 11.7-14.7 INR (BEAKER) (test ymtu=958) 1.3 <=5.9 PARTIAL THROMBOPLASTIN TIME (BEAKER) (test iepy=475) 33.1 seconds 22.5-36.0 RECOMMENDED COUMADIN/WARFARIN INR THERAPY RANGESSTANDARD DOSE: 2.0 - 3.0 Inclu arslan: PROPHYLAXIS for venous thrombosis, systemic embolization; TREATMENT for cameron ous thrombosis and/or pulmonary embolus.HIGH RISK: Target INR is 2.5-3.5 for pat ients with mechanical heart valves.CBC W/PLT COUNT & AUTO [id number] 06:51:00* Test Item Value Reference Range Comments WHITE BLOOD CELL COUNT (BEAKER) (test dfnr=047) 5.9 K/ L 3.5-10.5 RED BLOOD CELL COUNT (BEAKER) (test rzke=120) 3.78 M/ L 4.63-6.08 HEMOGLOBIN (BEAKER) (test jpqp=637) 10.9 GM/DL 13.7-17.5 HEMATOCRIT (BEAKER) (test dvdl=093) 33.7 % 40.1-51.0 MEAN CORPUSCULAR VOLUME (BEAKER) (test erru=340) 89.2 fL 79.0-92.2 MEAN CORPUSCULAR HEMOGLOBIN (BEAKER) (test jguu=610) 28.8 pg 25.7-32.2 MEAN CORPUSCULAR HEMOGLOBIN CONC (BEAKER) (test cpxr=530) 32.3 GM/DL 32.3-36.5 RED CELL DISTRIBUTION WIDTH (BEAKER) (test xbqq=837) 13.2 % 11.6-14.4 PLATELET COUNT (BEAKER) (test tycd=056) 150 K/CU MM 150-450 MEAN PLATELET VOLUME (BEAKER) (test onyx=322) 11.0 fL 9.4-12.4 NUCLEATED RED BLOOD CELLS (BEAKER) (test gysi=020) 0 /100 WBC 0-0 NEUTROPHILS RELATIVE PERCENT (BEAKER) (test oray=343) 57 % LYMPHOCYTES RELATIVE PERCENT (BEAKER) (test zdlm=089) 29 % MONOCYTES RELATIVE PERCENT (BEAKER) (test oipk=648) 10 % EOSINOPHILS RELATIVE PERCENT (BEAKER) (test gvwc=418) 3 % BASOPHILS RELATIVE PERCENT (BEAKER) (test pdxu=399) 1 % NEUTROPHILS ABSOLUTE COUNT (BEAKER) (test zdok=153) 3.35 K/ L 1.78-5.38 LYMPHOCYTES ABSOLUTE COUNT (BEAKER) (test urkv=586) 1.70 K/ L 1.32-3.57 MONOCYTES ABSOLUTE COUNT (BEAKER) (test swqf=678) 0.62 K/ L 0.30-0.82 EOSINOPHILS ABSOLUTE COUNT (BEAKER) (test rejz=180) 0.20 K/ L 0.04-0.54 BASOPHILS ABSOLUTE COUNT (BEAKER) (test dvox=325) 0.05 K/ L 0.01-0.08 IMMATURE GRANULOCYTES-RELATIVE PERCENT (BEAKER) (test ggdz=2000) 0 % 0-1 LIVER FIBROSIS, FIBROTEST-ACTITEST [id number] 08:18:00* Test Item Value Reference Range Comments FIBROSIS SCORE (QUEST) (test pupn=0502210) FIBROSIS STAGE (QUEST) (test dywi=6700846) FIBROSIS INTERPRETATION (QUEST) (test zzft=2521055) NECROINFLAMMAT ACTIVITY GRADE ([facility]) (test jxbe=3661234) NECROINFLAMMAT INTERP (QUEST) (test rkzg=4658379) BILIRUBIN, TOTAL (QUEST) (test oejz=3308695) GGT (QUEST) (test bddn=8787695) ALT (SGPT) (QUEST) (test abki=3921190) ALPHA 2 MACROGLOBULIN (QUEST) (test wwtt=7475709) HAPTOGLOBIN (QUEST) (test jyot=6469595) APOLIPOPROTEIN A-1 (QUEST) (test fifj=2407431) NECROINFLAMMAT ACTIVITY SCORE (test qmai=8908689) ANTI-NUCLEAR ANTIBODY (CARRILLO)2018-05-01 10:15:00* Test Item Value Reference Range Comments ANTI-NUCLEAR ANTIBODY (CARRILLO) (BEAKER) (test gmif=145) Negative Negative Test performed by IFA method.Test performed by IFA method.HEPATITIS B SURFACE [id number] 14:35:00* Test Item Value Reference Range Comments HEPATITIS B SURFACE ANTIBODY (BEAKER) (test unrd=180) < mIU/mL <8.0 ALPHA FETOPROTEIN (AFP), TUMOR [id number] 13:24:00* Test Item Value Reference Range Comments ALPHA-FETOPROTEIN (BEAKER) (test ampa=9182) < ng/mL <10.0 COMPREHENSIVE METABOLIC [id number] 13:19:00* Test Item Value Reference Range Comments TOTAL PROTEIN (BEAKER) (test nmfu=889) 7.4 gm/dL 6.0-8.3 ALBUMIN (BEAKER) (test bxcm=9719) 4.0 g/dL 3.5-5.0 ALKALINE PHOSPHATASE (BEAKER) (test ywpp=591) 71 U/L 40-150 BILIRUBIN TOTAL (BEAKER) (test uccp=062) 0.5 mg/dL 0.2-1.2 SODIUM (BEAKER) (test tsnu=714) 143 meq/L 136-145 POTASSIUM (BEAKER) (test jpog=398) 5.0 meq/L 3.5-5.1 CHLORIDE (BEAKER) (test cinw=440) 109 meq/L 98-107 CO2 (BEAKER) (test afro=765) 24 meq/L 22-29 BLOOD UREA NITROGEN (BEAKER) (test hksl=452) 66 mg/dL 7-21 CREATININE (BEAKER) (test gqgm=626) 5.30 mg/dL 0.57-1.25 GLUCOSE RANDOM (BEAKER) (test queq=583) 70 mg/dL 70-105 CALCIUM (BEAKER) (test hnds=200) 9.9 mg/dL 8.4-10.2 AST (SGOT) (BEAKER) (test peff=079) 17 U/L 5-34 ALT (SGPT) (BEAKER) (test elkb=562) 13 U/L 6-55 EGFR (BEAKER) (test tzcp=9948) 11 mL/min/1.73 sq m ESTIMATED GFR IS NOT ACCURATE CREATININE CLEARANCE IN PREDICTING GLOMERULAR FILTRATION RATE. ESTIMATED GFR IS NOT APPLICABLE FOR DIALYSIS PATIENTS. HEPATITIS A ANTIBODY, [id number] 13:06:00* Test Item Value Reference Range Comments HEPATITIS A IGM ANTIBODY (BEAKER) (test uryf=279) Nonreactive Nonreactive HEPATITIS A ANTIBODY, [id number] 13:06:00* Test Item Value Reference Range Comments HEPATITIS A IGG ANTIBODY (BEAKER) (test rzad=4780) Nonreactive Nonreactive [id number] 13:05:00* Test Item Value Reference Range Comments FERRITIN (BEAKER) (test yfze=594) 228 ng/mL 5-275 IRON, TIBC, % SAT. (WITHOUT FERRITIN)2018-04-30 12:50:00* Test Item Value Reference Range Comments IRON (BEAKER) (test yepo=916) 75 ug/dL 40-160 TOTAL IRON BINDING CAPACITY (BEAKER) (test lvyv=306) 350 ug/dL 250-450 IRON % SATURATION (2) (BEAKER) (test emtc=3712) 21 % 20-55 BILIRUBIN, [id number] 12:49:00* Test Item Value Reference Range Comments BILIRUBIN DIRECT (BEAKER) (test qgfz=648) 0.2 mg/dL 0.1-0.5 [id number] 12:41:00* Test Item Value Reference Range Comments ALPHA-1 ANTITRYPSIN (BEAKER) (test sxmy=197) 165.60 mg/dL 90.00-200.00 PROTHROMBIN [id number] 12:23:00* Test Item Value Reference Range Comments PROTIME (BEAKER) (test nmvv=065) 14.2 seconds 11.7-14.7 INR (BEAKER) (test vdia=942) 1.1 <=5.9 RECOMMENDED COUMADIN/WARFARIN INR THERAPY RANGESSTANDARD DOSE: 2.0 - 3.0 Inclu arslan: PROPHYLAXIS for venous thrombosis, systemic embolization; TREATMENT for cameron ous thrombosis and/or pulmonary embolus.HIGH RISK: Target INR is 2.5-3.5 for pat ients with mechanical heart valves.CBC W/PLT COUNT & AUTO [id number] 12:16:00* Test Item Value Reference Range Comments WHITE BLOOD CELL COUNT (BEAKER) (test vvas=726) 8.4 K/ L 3.5-10.5 RED BLOOD CELL COUNT (BEAKER) (test ooah=934) 4.20 M/ L 4.63-6.08 HEMOGLOBIN (BEAKER) (test xwti=448) 11.9 GM/DL 13.7-17.5 HEMATOCRIT (BEAKER) (test gfqc=038) 37.2 % 40.1-51.0 MEAN CORPUSCULAR VOLUME (BEAKER) (test wmfi=192) 88.6 fL 79.0-92.2 MEAN CORPUSCULAR HEMOGLOBIN (BEAKER) (test mznr=567) 28.3 pg 25.7-32.2 MEAN CORPUSCULAR HEMOGLOBIN CONC (BEAKER) (test zwwe=914) 32.0 GM/DL 32.3-36.5 RED CELL DISTRIBUTION WIDTH (BEAKER) (test tnoa=907) 13.2 % 11.6-14.4 PLATELET COUNT (BEAKER) (test axzp=102) 192 K/CU MM 150-450 MEAN PLATELET VOLUME (BEAKER) (test fukl=067) 11.5 fL 9.4-12.4 NUCLEATED RED BLOOD CELLS (BEAKER) (test dkpj=542) 0 /100 WBC 0-0 NEUTROPHILS RELATIVE PERCENT (BEAKER) (test lizs=365) 65 % LYMPHOCYTES RELATIVE PERCENT (BEAKER) (test hown=921) 23 % MONOCYTES RELATIVE PERCENT (BEAKER) (test qlyw=765) 8 % EOSINOPHILS RELATIVE PERCENT (BEAKER) (test livf=148) 3 % BASOPHILS RELATIVE PERCENT (BEAKER) (test iegz=643) 1 % NEUTROPHILS ABSOLUTE COUNT (BEAKER) (test ayci=177) 5.47 K/ L 1.78-5.38 LYMPHOCYTES ABSOLUTE COUNT (BEAKER) (test cyys=083) 1.91 K/ L 1.32-3.57 MONOCYTES ABSOLUTE COUNT (BEAKER) (test jyzl=871) 0.70 K/ L 0.30-0.82 EOSINOPHILS ABSOLUTE COUNT (BEAKER) (test oabo=724) 0.21 K/ L 0.04-0.54 BASOPHILS ABSOLUTE COUNT (BEAKER) (test obse=966) 0.07 K/ L 0.01-0.08 IMMATURE GRANULOCYTES-RELATIVE PERCENT (BEAKER) (test uwrv=8524) 0 % 0-1 LIPID [id number] 10:27:00* Test Item Value Reference Range Comments TRIGLYCERIDES (BEAKER) (test xquv=086) 68 mg/dL CHOLESTEROL (BEAKER) (test swux=851) 115 mg/dL HDL CHOLESTEROL (BEAKER) (test glnx=559) 51 mg/dL LDL CHOLESTEROL CALCULATED (AKER) (test pxkc=020) 50 mg/dL Triglyceride Reference Range: Low Risk <150 Borderline 150-199 High Risk 200-499 Very High Risk >=500Cholesterol Reference Range: Low Risk <200 Borderline 200-239 High Risk >240HDL Cholesterol Reference Range: Low Risk >=60 High Risk <40LDL Cholesterol Reference Range: Optimal <100 Near Optimal 100-129 Borderline 130-159 High 160-189 Very High >=190 VARICELLA ZOSTER ANTIBODY, [id number] 06:43:00* Test Item Value Reference Range Comments VARICELLA ZOSTER IGG (AL) (BEAKER) (test elgc=2218) 4.4 Al VARICELLA ZOSTER RESULT INTERPRETATIONS: <=0.8 Al Nonreactive: Presumed non-immune to VZV 0.9-1.0 Al Equivocal >=1.1 Al Reactive: Presumed immune to VZVCYTOMEGALOVIRUS ANTIBODY, [id number] 06:33:00* Test Item Value Reference Range Comments CYTOMEGALOVIRUS IGG ANTIBODY (BEAKER) (test wdji=310) Positive CYTOMEGALOVIRUS ANTIBODY, [id number] 06:33:00* Test Item Value Reference Range Comments CYTOMEGALOVIRUS IGM ANTIBODY (BEAKER) (test ejdz=506) Negative EBV-VCA ANTIBODY, [id number] 06:33:00* Test Item Value Reference Range Comments JOSE ANTONIO-PERRIN VCA IGG (BEAKER) (test qlvt=076) Positive EBV-VCA ANTIBODY, [id number] 06:33:00* Test Item Value Reference Range Comments JOSE ANTOINO-PERRIN VCA IGM (LUCI) (test iiyp=872) Negative URINE [id number] 15:25:00* Test Item Value Reference Range Comments CULTURE (JO-ANNAKER) (test vohn=8092) No growth [id number] 09:28:00* Test Item Value Reference Range Comments RPR SCREEN (LUCI) (test vgkc=131) Nonreactive Nonreactive U/S, ABDOMINAL, [id number] 15:23:00Reason for Exam:->pre transplant evaluationFINAL REPORT TECHNIQUE: Grayscale ultrasound of the abdomen. [...] steatosis. Smooth liver contour. No focal lesions. BILIARY:Gallbladder: No gallstones or sludge. No gallbladder wall thickening, pericholecystic fluid, or distention. Negative sonographic Cortes sign.Common bile duct measures 0.4 cm, within normal [...] measures 1.5 x 1.1 x 1.5 cm. IMPRESSION:Hepatic steatosis. Signed: Maritza Miller MDReport Verified Date/Time: 02/28/2018 15:23:22 Reading Location: [address] Radiology Reading Room GLOBIN [id number] 14:29:00* Test Item Value Reference Range Comments HEMOGLOBIN A1C (LUCI) (test sbxe=648) 6.0 % 4.3-6.1 HEPATITIS B SURFACE [id number] 14:04:00* Test Item Value Reference Range Comments HEPATITIS B SURFACE ANTIBODY (LUCI) (test egnc=501) < mIU/mL <8.0 HIV-1 ANTIGEN WITH HIV-1/2 [id number] 13:37:00* Test Item Value Reference Range Comments HIV-1 ANTIGEN WITH HIV 1\\T\\2 ANTIBODY (2) (BEAKER) (test ektv=5138) Nonreactive Nonreactive RAD, CHEST, 2 [id number] 12:42:00Reason for Exam:->pre transplant evaluationFINAL REPORT History: End-stage renal disease, renal transplant [...] of acute cardiopulmonary disease. Signed: Harpal Romo Verified Date/Time: 02/28/2018 12:42:19 Reading Location: [facility] Radiology Reading Room TITIS B SURFACE [id number] 12:21:00* Test Item Value Reference Range Comments HEPATITIS B SURFACE ANTIGEN (2) (BEAKER) (test gvdl=0750) Nonreactive Nonreactive HEPATITIS B CORE ANTIBODY, [id number] 12:21:00* Test Item Value Reference Range Comments HEPATITIS B CORE IGM ANTIBODY (BEAKER) (test oybf=994) Nonreactive Nonreactive HEPATITIS C [id number] 12:21:00* Test Item Value Reference Range Comments HEPATITIS C ANTIBODY (BEAKER) (test heer=379) Nonreactive Nonreactive URINALYSIS W/ [id number] 11:52:00* Test Item Value Reference Range Comments COLOR (BEAKER) (test qhwp=012) Light Yellow CLARITY (BEAKER) (test eqfm=525) Clear SPECIFIC GRAVITY UA (BEAKER) (test msqq=202) 1.009 1.001-1.035 PH UA (BEAKER) (test kkfc=566) 6.5 5.0-8.0 PROTEIN UA (BEAKER) (test ipuw=675) 300 mg/dL Negative GLUCOSE UA (BEAKER) (test cier=455) Negative Negative KETONES UA (BEAKER) (test cnhk=045) Negative Negative BILIRUBIN UA (BEAKER) (test jmik=696) Negative Negative BLOOD UA (BEAKER) (test xgih=671) Negative Negative NITRITE UA (BEAKER) (test vfgk=992) Negative Negative LEUKOCYTE ESTERASE UA (BEAKER) (test qigl=477) Negative Negative UROBILINOGEN UA (BEAKER) (test dgrb=182) 0.2 mg/dL 0.2-1.0 RBC UA (BEAKER) (test qyzd=529) 1 /HPF WBC UA (BEAKER) (test jrcs=852) 1 /HPF BACTERIA (BEAKER) (test jrvw=773) Rare MUCUS (BEAKER) (test hlzr=9066) Rare SQUAMOUS EPITHELIAL (BEAKER) (test yjwq=158) < /HPF SOURCE(BEAKER) (test vsuu=7490) COMPREHENSIVE METABOLIC [id number] 11:26:00* Test Item Value Reference Range Comments TOTAL PROTEIN (BEAKER) (test uqcb=441) 6.8 gm/dL 6.0-8.3 ALBUMIN (BEAKER) (test xgiz=5861) 3.8 g/dL 3.5-5.0 ALKALINE PHOSPHATASE (BEAKER) (test uleu=028) 72 U/L 40-150 BILIRUBIN TOTAL (BEAKER) (test lhwj=949) 0.4 mg/dL 0.2-1.2 SODIUM (BEAKER) (test xtbx=499) 143 meq/L 136-145 POTASSIUM (BEAKER) (test nnrg=294) 4.5 meq/L 3.5-5.1 CHLORIDE (BEAKER) (test xdzp=960) 110 meq/L 98-107 CO2 (BEAKER) (test ksvx=649) 24 meq/L 22-29 BLOOD UREA NITROGEN (BEAKER) (test fyze=815) 61 mg/dL 7-21 CREATININE (BEAKER) (test aqix=887) 4.78 mg/dL 0.57-1.25 GLUCOSE RANDOM (BEAKER) (test rvjt=049) 78 mg/dL 70-105 CALCIUM (BEAKER) (test ghcm=590) 9.3 mg/dL 8.4-10.2 AST (SGOT) (BEAKER) (test agkh=840) 16 U/L 5-34 ALT (SGPT) (BEAKER) (test uoyz=271) 15 U/L 6-55 EGFR (BEAKER) (test goik=8264) 12 mL/min/1.73 sq m ESTIMATED GFR IS NOT ACCURATE CREATININE CLEARANCE IN PREDICTING GLOMERULAR FILTRATION RATE. ESTIMATED GFR IS NOT APPLICABLE FOR DIALYSIS PATIENTS. [id number] 11:26:00* Test Item Value Reference Range Comments PROSTATE SPECIFIC ANTIGEN (BEAKER) (test aycc=472) 1.6 ng/mL 0.0-4.0 URIC [id number] 11:06:00* Test Item Value Reference Range Comments URIC ACID (BEAKER) (test dxnl=377) 7.0 mg/dL 2.6-7.2 [id number] 11:06:00* Test Item Value Reference Range Comments PHOSPHORUS (BEAKER) (test bxwx=990) 4.8 mg/dL 2.3-4.7 GAMMA GLUTAMYL TRANSFERASE (GGT)2018-02-28 11:06:00* Test Item Value Reference Range Comments GAMMA GLUTAMYL TRANSFERASE (BEAKER) (test jlju=755) 26 U/L 9-64 LACTATE DEHYDROGENASE (LDH)2018-02-28 11:06:00* Test Item Value Reference Range Comments LACTATE DEHYDROGENASE (BEAKER) (test nsep=352) 230 U/L 125-220 PTH, [id number] 10:51:00* Test Item Value Reference Range Comments PARATHYROID HORMONE INTACT (BEAKER) (test ufsr=896) 96.8 pg/mL 8.5-72.5 CBC W/PLT COUNT & AUTO [id number] 10:32:00* Test Item Value Reference Range Comments WHITE BLOOD CELL COUNT (BEAKER) (test zotc=790) 7.2 K/ L 3.5-10.5 RED BLOOD CELL COUNT (BEAKER) (test amdb=148) 3.94 M/ L 4.63-6.08 HEMOGLOBIN (BEAKER) (test orzf=019) 11.2 GM/DL 13.7-17.5 HEMATOCRIT (BEAKER) (test hlsn=682) 34.8 % 40.1-51.0 MEAN CORPUSCULAR VOLUME (BEAKER) (test gagl=465) 88.3 fL 79.0-92.2 MEAN CORPUSCULAR HEMOGLOBIN (BEAKER) (test jiqs=840) 28.4 pg 25.7-32.2 MEAN CORPUSCULAR HEMOGLOBIN CONC (BEAKER) (test cpob=502) 32.2 GM/DL 32.3-36.5 RED CELL DISTRIBUTION WIDTH (BEAKER) (test oils=312) 13.3 % 11.6-14.4 PLATELET COUNT (BEAKER) (test urqd=281) 155 K/CU MM 150-450 MEAN PLATELET VOLUME (BEAKER) (test yajh=846) 11.9 fL 9.4-12.4 NUCLEATED RED BLOOD CELLS (BEAKER) (test fpsj=342) 0 /100 WBC 0-0 NEUTROPHILS RELATIVE PERCENT (BEAKER) (test oumo=375) 62 % LYMPHOCYTES RELATIVE PERCENT (BEAKER) (test gdnq=744) 24 % MONOCYTES RELATIVE PERCENT (BEAKER) (test pzoo=826) 10 % EOSINOPHILS RELATIVE PERCENT (BEAKER) (test fikl=354) 3 % BASOPHILS RELATIVE PERCENT (BEAKER) (test fvrx=661) 1 % NEUTROPHILS ABSOLUTE COUNT (BEAKER) (test cegw=903) 4.45 K/ L 1.78-5.38 LYMPHOCYTES ABSOLUTE COUNT (BEAKER) (test hkbk=007) 1.72 K/ L 1.32-3.57 MONOCYTES ABSOLUTE COUNT (BEAKER) (test rvxj=103) 0.74 K/ L 0.30-0.82 EOSINOPHILS ABSOLUTE COUNT (BEAKER) (test slbc=203) 0.20 K/ L 0.04-0.54 BASOPHILS ABSOLUTE COUNT (BEAKER) (test vdoe=483) 0.07 K/ L 0.01-0.08 IMMATURE GRANULOCYTES-RELATIVE PERCENT (BEAKER) (test oevi=9643) 0 % 0-1 PT/[id number] 10:23:00* Test Item Value Reference Range Comments PROTIME (BEAKER) (test fkst=092) 15.2 seconds 11.7-14.7 INR (BEAKER) (test ntji=117) 1.2 <=5.9 PARTIAL THROMBOPLASTIN TIME (BEAKER) (test kqmm=698) 33.3 seconds 22.5-36.0 RECOMMENDED COUMADIN/WARFARIN INR THERAPY RANGESSTANDARD DOSE: 2.0 - 3.0 Inclu arslan: PROPHYLAXIS for venous thrombosis, systemic embolization; TREATMENT for cameron ous thrombosis and/or pulmonary embolus.HIGH RISK: Target INR is 2.5-3.5 for pat ients with mechanical heart valves.POCT-GLUCOSE [id number] 12:32:00* Test Item Value Reference Range Comments POC-GLUCOSE METER (BEAKER) (test vxyx=0380) 286 mg/dL 70-110 TESTED AT [facility] [address] [facility] [id number] BASIC METABOLIC [id number] 04:51:00* Test Item Value Reference Range Comments SODIUM (BEAKER) (test vcvl=305) 140 meq/L 136-145 POTASSIUM (BEAKER) (test qmcb=911) 4.5 meq/L 3.5-5.1 Specimen slightly hemolyzed CHLORIDE (BEAKER) (test olbj=148) 108 meq/L 98-107 CO2 (BEAKER) (test xhvu=369) 22 meq/L 22-29 BLOOD UREA NITROGEN (BEAKER) (test ndor=680) 71 mg/dL 7-21 CREATININE (BEAKER) (test tsjp=525) 4.19 mg/dL 0.57-1.25 Specimen slightly hemolyzed GLUCOSE RANDOM (BEAKER) (test cnat=276) 145 mg/dL 70-105 CALCIUM (BEAKER) (test syde=682) 9.1 mg/dL 8.4-10.2 EGFR (BEAKER) (test adoc=9179) 14 mL/min/1.73 sq m ESTIMATED GFR IS NOT ACCURATE CREATININE CLEARANCE IN PREDICTING GLOMERULAR FILTRATION RATE. ESTIMATED GFR IS NOT APPLICABLE FOR DIALYSIS PATIENTS. CBC W/PLT COUNT & AUTO [id number] 04:43:00* Test Item Value Reference Range Comments WHITE BLOOD CELL COUNT (BEAKER) (test rwsg=620) 10.5 K/ L 4.0-10.0 RED BLOOD CELL COUNT (BEAKER) (test dkds=549) 4.81 M/ L 4.20-5.80 HEMOGLOBIN (BEAKER) (test qxoj=240) 14.3 GM/DL 13.0-16.8 HEMATOCRIT (BEAKER) (test ontj=830) 43.2 % 40.0-50.0 MEAN CORPUSCULAR VOLUME (BEAKER) (test nmws=080) 89.8 fL 82.0-98.0 MEAN CORPUSCULAR HEMOGLOBIN (BEAKER) (test vadd=974) 29.8 pg 27.0-33.0 MEAN CORPUSCULAR HEMOGLOBIN CONC (BEAKER) (test jqgl=230) 33.2 GM/DL 32.0-36.0 RED CELL DISTRIBUTION WIDTH (BEAKER) (test cjlb=442) 14.0 % 10.3-14.2 PLATELET COUNT (BEAKER) (test sgmu=804) 120 K/CU MM 150-430 MEAN PLATELET VOLUME (BEAKER) (test iluj=258) 9.6 fL 6.5-10.5 NUCLEATED RED BLOOD CELLS (BEAKER) (test wpds=464) 0 /100 WBC 0-0 NEUTROPHILS RELATIVE PERCENT (BEAKER) (test vdzl=463) 66 % LYMPHOCYTES RELATIVE PERCENT (BEAKER) (test axpm=670) 22 % MONOCYTES RELATIVE PERCENT (BEAKER) (test hkbb=461) 9 % EOSINOPHILS RELATIVE PERCENT (BEAKER) (test qiun=262) 3 % BASOPHILS RELATIVE PERCENT (BEAKER) (test aoya=102) 1 % NEUTROPHILS ABSOLUTE COUNT (BEAKER) (test gpib=871) 6.87 K/ L 1.80-8.00 LYMPHOCYTES ABSOLUTE COUNT (BEAKER) (test bpvf=706) 2.29 K/ L 1.48-4.50 MONOCYTES ABSOLUTE COUNT (BEAKER) (test ftkq=971) 0.94 K/ L 0.00-1.30 EOSINOPHILS ABSOLUTE COUNT (BEAKER) (test kozi=868) 0.27 K/ L 0.00-0.50 BASOPHILS ABSOLUTE COUNT (BEAKER) (test czol=602) 0.09 K/ L 0.00-0.20 0.00POCT-GLUCOSE [id number] 22:32:00* Test Item Value Reference Range Comments POC-GLUCOSE METER (BEAKER) (test hvdg=5342) 187 mg/dL 70-110 TESTED AT [address] [address] POCT-GLUCOSE [id number] 19:33:00* Test Item Value Reference Range Comments POC-GLUCOSE METER (BEAKER) (test sbqd=5247) 352 mg/dL 70-110 Notified MARLON SANCHEZ/TESTED AT [address] [address] POCT-GLUCOSE [id number] 12:39:00* Test Item Value Reference Range Comments POC-GLUCOSE METER (BEAKER) (test pbox=0833) 335 mg/dL 70-110 Notified MARLON SANCHEZ/TESTED AT [facility] [address] [facility] [address] TROPONIN [id number] 04:52:00* Test Item Value Reference Range Comments TROPONIN I (BEAKER) (test nqnk=370) 0.05 ng/mL 0.00-0.03 Effective 09/02/2014: Reference Range ChangeNew: 0.00-0.03 Previous 0.00-0.15T roponin I (TnI) levels must be interpreted in the context of the presenting symp toms and the clinical findings. Elevated TnI levels indicate myocardial damage, but are not specific for ischemic heart disease. Elevated TnI levels are seen in patients with other cardiac conditions (including myocarditis and congestive he art failure), and slight TnI elevations occur in patients with other conditions, including sepsis, renal failure, acidosis, acute neurological disease, and pers istent tachyarrhythmia.Check Serum Potassium level 2 hours after oral potassium replacement completed or 30 min after intravenous potassium replacement.BASIC METABOLIC [id number] 04:50:00* Test Item Value Reference Range Comments SODIUM (BEAKER) (test xxlf=534) 141 meq/L 136-145 POTASSIUM (BEAKER) (test nelf=920) 5.0 meq/L 3.5-5.1 CHLORIDE (BEAKER) (test fuej=748) 108 meq/L 98-107 CO2 (BEAKER) (test epho=559) 25 meq/L 22-29 BLOOD UREA NITROGEN (BEAKER) (test phaz=709) 62 mg/dL 7-21 CREATININE (BEAKER) (test apub=153) 3.92 mg/dL 0.57-1.25 GLUCOSE RANDOM (BEAKER) (test wyab=556) 256 mg/dL 70-105 CALCIUM (BEAKER) (test whjo=500) 8.9 mg/dL 8.4-10.2 EGFR (BEAKER) (test muqn=9137) 15 mL/min/1.73 sq m ESTIMATED GFR IS NOT ACCURATE CREATININE CLEARANCE IN PREDICTING GLOMERULAR FILTRATION RATE. ESTIMATED GFR IS NOT APPLICABLE FOR DIALYSIS PATIENTS. Check Serum Potassium level 2 hours after oral potassium replacement completed o r 30 min after intravenous potassium replacement.[id number] 04:44:00* Test Item Value Reference Range Comments POTASSIUM (BEAKER) (test nvrj=067) 5.0 meq/L 3.5-5.1 Check Serum Potassium level 2 hours after oral potassium replacement completed o r 30 min after intravenous potassium replacement.[id number] 04:44:00* Test Item Value Reference Range Comments MAGNESIUM (BEAKER) (test hhwi=840) 2.0 mg/dL 1.6-2.6 Check Serum Potassium level 2 hours after oral potassium replacement completed o r 30 min after intravenous potassium replacement.CBC W/PLT COUNT & AUTO [id number] 04:35:00* Test Item Value Reference Range Comments WHITE BLOOD CELL COUNT (BEAKER) (test orun=924) 11.8 K/ L 4.0-10.0 RED BLOOD CELL COUNT (BEAKER) (test lhoa=987) 4.78 M/ L 4.20-5.80 HEMOGLOBIN (BEAKER) (test cozu=530) 14.4 GM/DL 13.0-16.8 HEMATOCRIT (BEAKER) (test xult=507) 43.1 % 40.0-50.0 MEAN CORPUSCULAR VOLUME (BEAKER) (test ieyf=836) 90.2 fL 82.0-98.0 MEAN CORPUSCULAR HEMOGLOBIN (BEAKER) (test jurn=725) 30.1 pg 27.0-33.0 MEAN CORPUSCULAR HEMOGLOBIN CONC (BEAKER) (test ddpa=369) 33.3 GM/DL 32.0-36.0 RED CELL DISTRIBUTION WIDTH (BEAKER) (test tdky=601) 13.0 % 10.3-14.2 PLATELET COUNT (BEAKER) (test odvp=213) 134 K/CU MM 150-430 MEAN PLATELET VOLUME (BEAKER) (test zhkh=922) 9.3 fL 6.5-10.5 NUCLEATED RED BLOOD CELLS (BEAKER) (test saym=194) 0 /100 WBC 0-0 NEUTROPHILS RELATIVE PERCENT (BEAKER) (test smhc=127) 70 % LYMPHOCYTES RELATIVE PERCENT (BEAKER) (test kurt=036) 21 % MONOCYTES RELATIVE PERCENT (BEAKER) (test cddb=366) 8 % EOSINOPHILS RELATIVE PERCENT (BEAKER) (test kgos=841) 1 % BASOPHILS RELATIVE PERCENT (BEAKER) (test sjtd=586) 0 % NEUTROPHILS ABSOLUTE COUNT (BEAKER) (test yicw=930) 8.27 K/ L 1.80-8.00 LYMPHOCYTES ABSOLUTE COUNT (BEAKER) (test pfdh=089) 2.42 K/ L 1.48-4.50 MONOCYTES ABSOLUTE COUNT (BEAKER) (test vsyf=825) 0.94 K/ L 0.00-1.30 EOSINOPHILS ABSOLUTE COUNT (BEAKER) (test neat=123) 0.17 K/ L 0.00-0.50 BASOPHILS ABSOLUTE COUNT (BEAKER) (test ygzx=092) 0.04 K/ L 0.00-0.20 0.00PT/[id number] 04:34:00* Test Item Value Reference Range Comments PROTIME (BEAKER) (test fqyy=627) 15.1 seconds 11.7-14.7 INR (BEAKER) (test kygo=499) 1.2 <=5.9 PARTIAL THROMBOPLASTIN TIME (BEAKER) (test nddw=798) 32.5 seconds 22.5-36.0 RECOMMENDED COUMADIN/WARFARIN INR THERAPY RANGESSTANDARD DOSE: 2.0 - 3.0 Inclu arslan: PROPHYLAXIS for venous thrombosis, systemic embolization; TREATMENT for cameron ous thrombosis and/or pulmonary embolus.HIGH RISK: Target INR is 2.5-3.5 for pat ients with mechanical heart valves.TROPONIN [id number] 21:18:00* Test Item Value Reference Range Comments TROPONIN I (BEAKER) (test iksk=582) 0.05 ng/mL 0.00-0.03 Effective 09/02/2014: Reference Range ChangeNew: 0.00-0.03 Previous 0.00-0.15T roponin I (TnI) levels must be interpreted in the context of the presenting symp toms and the clinical findings. Elevated TnI levels indicate myocardial damage, but are not specific for ischemic heart disease. Elevated TnI levels are seen in patients with other cardiac conditions (including myocarditis and congestive he art failure), and slight TnI elevations occur in patients with other conditions, including sepsis, renal failure, acidosis, acute neurological disease, and pers istent tachyarrhythmia.POCT-GLUCOSE [id number] 18:19:00* Test Item Value Reference Range Comments POC-GLUCOSE METER (LUCI) (test nlak=7906) 191 mg/dL 70-110 TESTED AT [address] [address] TROPONIN [id number] 14:33:00* Test Item Value Reference Range Comments TROPONIN I (BEAKER) (test ztog=028) 0.06 ng/mL 0.00-0.03 Effective 09/02/2014: Reference Range ChangeNew: 0.00-0.03 Previous 0.00-0.15T roponin I (TnI) levels must be interpreted in the context of the presenting symp toms and the clinical findings. Elevated TnI levels indicate myocardial damage, but are not specific for ischemic heart disease. Elevated TnI levels are seen in patients with other cardiac conditions (including myocarditis and congestive he art failure), and slight TnI elevations occur in patients with other conditions, including sepsis, renal failure, acidosis, acute neurological disease, and pers istent tachyarrhythmia.B-TYPE NATRIURETIC FACTOR (BNP)2017-05-02 14:29:00* Test Item Value Reference Range Comments B-TYPE NATRIURETIC PEPTIDE (BEAKER) (test rjlz=731) 60 pg/mL 0-100 POCT-GLUCOSE [id number] 12:18:00* Test Item Value Reference Range Comments POC-GLUCOSE METER (BEAKER) (test lvkq=4124) 298 mg/dL 70-110 TESTED AT [address] [address] HEMOGLOBIN [id number] 07:30:00* Test Item Value Reference Range Comments HEMOGLOBIN A1C (BEAKER) (test oneh=850) 7.5 % 4.3-6.1 POCT-GLUCOSE [id number] 06:40:00* Test Item Value Reference Range Comments POC-GLUCOSE METER (BEAKER) (test eobh=3567) 203 mg/dL 70-110 TESTED AT [address] [address] TSH/FREE T4 IF [id number] 05:44:00* Test Item Value Reference Range Comments THYROID STIMULATING HORMONE (BEAKER) (test rjzb=087) 1.23 uIU/mL 0.35-4.94 VITAMIN B12 AND [id number] 05:44:00* Test Item Value Reference Range Comments VITAMIN B12 (BEAKER) (test jssg=516) 942 pg/mL 213-816 FOLATE (BEAKER) (test kyjk=124) 15.8 ng/mL >=7.0 Effective 09/02/2014: Folate Reference Range ChangeNew: >=7.0 Previous: >=5.4 TROPONIN [id number] 03:40:00* Test Item Value Reference Range Comments TROPONIN I (BEAKER) (test vfcz=724) 0.03 ng/mL 0.00-0.03 Effective 09/02/2014: Reference Range ChangeNew: 0.00-0.03 Previous 0.00-0.15T roponin I (TnI) levels must be interpreted in the context of the presenting symp toms and the clinical findings. Elevated TnI levels indicate myocardial damage, but are not specific for ischemic heart disease. Elevated TnI levels are seen in patients with other cardiac conditions (including myocarditis and congestive he art failure), and slight TnI elevations occur in patients with other conditions, including sepsis, renal failure, acidosis, acute neurological disease, and pers istent tachyarrhythmia.Once on admission and Daily AM afterwardsOnce on admissio n and Daily AM afterwardsBASIC METABOLIC [id number] 03:38:00* Test Item Value Reference Range Comments SODIUM (BEAKER) (test aidb=390) 144 meq/L 136-145 POTASSIUM (BEAKER) (test oubp=064) 4.1 meq/L 3.5-5.1 CHLORIDE (BEAKER) (test zuwq=689) 110 meq/L 98-107 CO2 (BEAKER) (test aufp=613) 25 meq/L 22-29 BLOOD UREA NITROGEN (BEAKER) (test ynit=982) 53 mg/dL 7-21 CREATININE (BEAKER) (test cwym=839) 3.50 mg/dL 0.57-1.25 GLUCOSE RANDOM (BEAKER) (test ebzp=730) 102 mg/dL 70-105 CALCIUM (BEAKER) (test ldqs=359) 9.4 mg/dL 8.4-10.2 EGFR (BEAKER) (test tqxh=0574) 18 mL/min/1.73 sq m ESTIMATED GFR IS NOT ACCURATE CREATININE CLEARANCE IN PREDICTING GLOMERULAR FILTRATION RATE. ESTIMATED GFR IS NOT APPLICABLE FOR DIALYSIS PATIENTS. Once on admission and Daily AM afterwardsOnce on admission and Daily AM afterwar [id number] 03:33:00* Test Item Value Reference Range Comments PHOSPHORUS (BEAKER) (test qvyv=005) 3.6 mg/dL 2.3-4.7 Once on admission and Daily AM afterwardsOnce on admission and Daily AM afterwar [id number] 03:33:00* Test Item Value Reference Range Comments MAGNESIUM (BEAKER) (test dnem=496) 2.2 mg/dL 1.6-2.6 Once on admission and Daily AM afterwardsOnce on admission and Daily AM afterwar dsLIPID [id number] 03:33:00* Test Item Value Reference Range Comments TRIGLYCERIDES (BEAKER) (test oubp=001) 128 mg/dL CHOLESTEROL (BEAKER) (test fqfi=924) 101 mg/dL HDL CHOLESTEROL (BEAKER) (test hujm=833) 45 mg/dL LDL CHOLESTEROL CALCULATED (BEAKER) (test bnmj=529) 30 mg/dL Triglyceride Reference Range: Low Risk <150 Borderline 150-199 High Risk 200-499 Very High Risk >=500Cholesterol Reference Range: Low Risk <200 Borderline 200-239 High Risk >240HDL Cholesterol Reference Range: Low Risk >=60 High Risk <40LDL Cholesterol Reference Range: Optimal <100 Near Optimal 100-129 Borderline 130-159 High 160-189 Very High >=190 Once on admission and Daily AM afterwardsOnce on admission and Daily AM afterwards HEPATIC FUNCTION [id number] 03:33:00* Test Item Value Reference Range Comments TOTAL PROTEIN (BEAKER) (test kfyn=080) 7.6 gm/dL 6.0-8.3 ALBUMIN (BEAKER) (test wrqb=7167) 4.1 g/dL 3.5-5.0 BILIRUBIN TOTAL (BEAKER) (test aink=815) 0.5 mg/dL 0.2-1.2 BILIRUBIN DIRECT (BEAKER) (test ezji=893) 0.2 mg/dL 0.1-0.5 ALKALINE PHOSPHATASE (BEAKER) (test yqdc=845) 65 U/L 40-150 AST (SGOT) (BEAKER) (test xbpe=155) 17 U/L 5-34 ALT (SGPT) (BEAKER) (test lllm=980) 15 U/L 6-55 Once on admission and Daily AM afterwardsOnce on admission and Daily AM afterwar dsPT/[id number] 03:25:00* Test Item Value Reference Range Comments PROTIME (BEAKER) (test rpgv=075) 14.4 seconds 11.7-14.7 INR (BEAKER) (test nsds=627) 1.1 <=5.9 PARTIAL THROMBOPLASTIN TIME (BEAKER) (test lnkp=082) 33.9 seconds 22.5-36.0 RECOMMENDED COUMADIN/WARFARIN INR THERAPY RANGESSTANDARD DOSE: 2.0 - 3.0 Inclu arslan: PROPHYLAXIS for venous thrombosis, systemic embolization; TREATMENT for cameron ous thrombosis and/or pulmonary embolus.HIGH RISK: Target INR is 2.5-3.5 for pat ients with mechanical heart valves.[id number] 03:25:00* Test Item Value Reference Range Comments PARTIAL THROMBOPLASTIN TIME (BEAKER) (test yfjc=426) 33.9 seconds 22.5-36.0 PROTHROMBIN TIME/[id number] 03:24:00* Test Item Value Reference Range Comments PROTIME (BEAKER) (test vfsf=100) 14.4 seconds 11.7-14.7 INR (BEAKER) (test rbfh=675) 1.1 <=5.9 RECOMMENDED COUMADIN/WARFARIN INR THERAPY RANGESSTANDARD DOSE: 2.0 - 3.0 Inclu arslan: PROPHYLAXIS for venous thrombosis, systemic embolization; TREATMENT for cameron ous thrombosis and/or pulmonary embolus.HIGH RISK: Target INR is 2.5-3.5 for pat ients with mechanical heart valves.CBC W/PLT COUNT & AUTO [id number] 03:19:00* Test Item Value Reference Range Comments WHITE BLOOD CELL COUNT (BEAKER) (test rkmy=242) 12.3 K/ L 4.0-10.0 RED BLOOD CELL COUNT (BEAKER) (test dusb=747) 5.13 M/ L 4.20-5.80 HEMOGLOBIN (BEAKER) (test pxne=916) 15.9 GM/DL 13.0-16.8 HEMATOCRIT (BEAKER) (test vycs=812) 46.0 % 40.0-50.0 MEAN CORPUSCULAR VOLUME (BEAKER) (test xsbj=419) 89.8 fL 82.0-98.0 MEAN CORPUSCULAR HEMOGLOBIN (BEAKER) (test fuwc=994) 31.0 pg 27.0-33.0 MEAN CORPUSCULAR HEMOGLOBIN CONC (BEAKER) (test ifcw=864) 34.5 GM/DL 32.0-36.0 RED CELL DISTRIBUTION WIDTH (BEAKER) (test gosl=011) 13.1 % 10.3-14.2 PLATELET COUNT (BEAKER) (test twte=192) 134 K/CU MM 150-430 MEAN PLATELET VOLUME (BEAKER) (test znbg=592) 9.5 fL 6.5-10.5 NUCLEATED RED BLOOD CELLS (BEAKER) (test qucd=432) 0 /100 WBC 0-0 NEUTROPHILS RELATIVE PERCENT (BEAKER) (test aksd=547) 70 % LYMPHOCYTES RELATIVE PERCENT (BEAKER) (test pcuy=032) 19 % MONOCYTES RELATIVE PERCENT (BEAKER) (test vfoa=834) 9 % EOSINOPHILS RELATIVE PERCENT (BEAKER) (test oltm=675) 2 % BASOPHILS RELATIVE PERCENT (BEAKER) (test iaey=433) 1 % NEUTROPHILS ABSOLUTE COUNT (BEAKER) (test dlnx=055) 8.62 K/ L 1.80-8.00 LYMPHOCYTES ABSOLUTE COUNT (BEAKER) (test orfh=574) 2.30 K/ L 1.48-4.50 MONOCYTES ABSOLUTE COUNT (BEAKER) (test ewst=016) 1.13 K/ L 0.00-1.30 EOSINOPHILS ABSOLUTE COUNT (BEAKER) (test nati=213) 0.22 K/ L 0.00-0.50 BASOPHILS ABSOLUTE COUNT (BEAKER) (test gjoo=271) 0.07 K/ L 0.00-0.20 0.00POCT-GLUCOSE [id number] 01:22:00* Test Item Value Reference Range Comments POC-GLUCOSE METER (BEAKER) (test vcgi=0724) 92 mg/dL 70-110 TESTED AT [facility] [address] [facility] [address]
--- OUTSIDE RECORDS SUMMARY | 2018-11-27 10:47 | XMS REPORT | Continuity of Care Document ---
Author Author [facility] Interface Address Unknown Phone Unavailable Problems Problem Status Onset Date Classification Date Reported Comments Source R60.9 - "EDEMA, UNSPECIFIED" Active 01/25/2016 [facility] 338 - PAIN NEC Active 08/23/2012 [facility] [place] 530.81 GERD/DIVERTICULAS Active 07/05/2012 [facility] UNK Active 07/05/2012 [facility] MORBID OBESITY HIATAL HERNIA ICD 278.01 CPT 18172 Active 07/04/2011 [facility] Diabetes mellitus type II Active Problem 08/25/2012 [facility] [place],[facility] History of repair of umbilical hernia Active Problem 08/25/2012 [facility] [place],[facility] HTN - Hypertension Active Problem 08/25/2012 [facility] [place],[facility] Knee replacement Inactive Problem 08/25/2012 [facility] [place],[facility] Obesity Active Problem 08/25/2012 [facility] [place],[facility] Pulmonary asbestosis Active Problem 08/25/2012 [facility] [place],[facility] Sleep apnea Active Problem 08/25/2012 [facility] [place],[facility] Diabetes mellitus type II Active Problem 04/30/2018 [facility] [place] [place] History of repair of umbilical hernia Active Problem 04/30/2018 [facility] [place] [place] HTN - Hypertension Active Problem 04/30/2018 [facility] [place] [place] Obesity Active Problem 04/30/2018 [facility] [place],[facility] Pulmonary asbestosis Active Problem 04/30/2018 [facility] [place] [place] Sleep apnea Active Problem 04/30/2018 [facility] [place] [place] DIVERTICULOSIS OF COLON Active [facility] ESOPHAGEAL REFLUX Active [facility] MORBID OBESITY Active [facility] Medications Medication Details Route Status Patient Instructions Ordering Provider Order Date Source Lactated Ringers Injection IV 1,000 mL 1,000 mL, Rate: 25 ml/hr, Infuse over: 40 hr, Route: IV, kg, Total Volume: 1,000, Start date: 07/11/12 10:18:00, Duration: 30 day, Stop date: 08/10/12 10:17:00 IV No Longer Active [facility] 07/11/2012 [facility] influenza virus vaccine, inactivated 0.5 ml, Route: IM, Drug Form: INJ, Start date: 07/14/11 9:00:00, Stop date: 07/14/11 9:00:00 IM No Longer Active [facility] 07/14/2011 [facility] [place] Allergies, Adverse Reactions, Alerts Substance Category Reaction Severity Reaction type Status Date Reported Comments Source Immunizations Immunization Date Given Site Status Last Updated Comments Source influenza virus vaccine, inactivated 07/14/2011 completed [place] [place] influenza virus vaccine, inactivated 07/14/2011 Right Deltoid completed [place] [facility] [place] Results Order Name Results Value Reference Range Date Interpretation Comments Source Spine cervical wo contrast MRI Spine cervical wo contrast MRI EXAM: Spine cervical wo contrast MRI DATE: 04/27/2018 4:46 PM CDT . ORDERING PHYSICIAN: Diego Cortes MD CLINICAL INDICATION: T14.8XXA Other injury of unspecified body region, initial encounter - T14.8XXA Other injury of unspecified body region, initial encounter; TECHNIQUE: Multiplanar, multisequence MRI cervical spine without IV contrast COMPARISON: Unavailable FINDINGS: VISUALIZED INTRACRANIAL CONTENTS: Unremarkable. CRANIOCERVICAL JUNCTION: The cerebellar tonsils are in normal position. SPINAL CORD: No definite cord signal abnormality. No definite dural based lesion. VERTEBRAE: The vertebrae are normal in height. The lordosis is straightened. No focal suspicious bone marrow signal abnormality. PARASPINAL SOFT TISSUES: No edema or masses DISC LEVELS, SPINAL CANAL, NEURAL FORAMINA: The cervical pedicles are short. Craniocervical junction: No stenosis C1-C2: No subluxation, ligamentous pannus formation, or stenosis C2-C3: Dehydrated disc with small circumferential disc osteophyte complex. Facets and uncinate process are unremarkable. Central canal measures 11 mm. Neural foramina are patent. C3-C4: Desiccated disc with circumferential disc osteophyte complex. There is mild facet and uncinate hypertrophy. Central canal measures 10 mm with slight effacement of ventral CSF space but no mass effect on the spinal cord. There is mild to moderate narrowing of the neural foramina. C4-C5: Dehydrated disc with shallow diffuse disc bulge. There is left greater than right facet and uncinate hypertrophy. Central canal measures 9 mm with slight ventral spinal cord deformity. There is moderate narrowing of the left neural foramen. C5-C6: Dehydrated disc with shallow diffuse disc bulge and central zone annular fissuring. There is right facet hypertrophy. Uncinate processes are unremarkable. Central canal measures 8 mm with slight ventral spinal cord deformity. There is moderate narrowing of the neural foramina bilaterally. C6-C7: Desiccated disc with circumferential disc osteophyte complex and central zone annular fissuring. This facet and uncinate hypertrophy. Central canal measures 10 mm. There is hejy-na-pdxgytuw narrowing of the neural foramina bilaterally. C7-T1: Intervertebral disc height and signal are maintained. Posterior elements are normal. There is no stenosis. IMPRESSION: 1. Mild C4-5 and C5-6 spinal stenosis with ventral spinal cord deformity but no evidence of compressive myelopathy 2. Moderate neural foramen narrowing on the left at C4-5 and bilaterally at C5-6 3. Please see additional comments above 04/27/2018 - - Read by: Mehran Mayorga MD Dictated Date/time: 04/28/18 09:30 Electronically Signed by: Mehran Mayorga MD 04/28/18 09:37 FINAL REPORT [facility] De Ext Lower Venous Doppler Unilat US Ext Lower Venous Doppler Unilat US EXAM: US RIGHT LOWER EXTREMITY VENOUS DOPPLER DATE: 01/25/2016 10:12 AM CDT INDICATION: R60.9 Edema, unspecified ADDITIONAL INFORMATION: None. COMPARISON: None. TECHNIQUE: Multiplanar grayscale, color Doppler and spectral Doppler ultrasound images of the right lower extremity veins. DISCUSSION: RightThigh Veins: Common Femoral: Patent. Femoral (SFV): Patent. Popliteal: Patent. Proximal Greater Saphenous: Patent. Deep Femoral Vein: Patent. Right anterior tibial, posterior tibial and peroneal veins have been imaged and are patent. There is subcutaneous interstitial edema seen in the right calf. IMPRESSION: 1. No deep vein thrombosis in the right lower extremity veins. 2. Subcutaneous interstitial edema in the right calf. 01/25/2016 - - Read by: Faizan Carvalho Dictated Date/time: 01/25/16 11:18 Electronically Signed by: Maia Jenncoltenromaine Espinoza 01/25/16 11:20 FINAL REPORT [facility] Chest 2 views Chest 2 views CHEST RADIOGRAPHY CLINICAL HISTORY: Asbestosis. COMPARISON IMAGIN04/07/2011 and 11/05/2004 radiography. FINDINGS: Two views of the chest were acquired and submitted for evaluation. No pleural fluid is identified. The contour of the cardiac silhouette is within normal limits. A 1.7 cm opacity overlying the mid left lung on the PA view is unchanged since 2004 and will be classified as benign. Artifact related to normal pulmonary vascularity is suspected as its etiology. There is no suspicious an essential thickening, pulmonary consolidation or nodularity. Bones are unremarkable. IMPRESSION: No significant abnormality. 04/24/2014 - - Read by: Олег Sanches MD Dictated Date/time: 04/25/14 07:52 Electronically Signed by: Олег Sanches MD 04/25/14 07:54 FINAL REPORT [facility] HEMATOLOGY WBC 6.5 K/CMM 3.7 - 10.4 07/11/2012 Normal [facility] HEMATOLOGY MCHC 34.3 g/dL 32.0 - 36.0 07/11/2012 Normal [facility] HEMATOLOGY MCH 30.2 pg 27.0 - 31.0 07/11/2012 Normal [facility] HEMATOLOGY MCV 87.9 fL 80.0 - 94.0 07/11/2012 Normal [facility] HEMATOLOGY Hct 40.9 % 42.0 - 54.0 07/11/2012 LOW [facility] HEMATOLOGY Hgb 14.0 g/dL 14.0 - 18.0 07/11/2012 Normal [facility] HEMATOLOGY RBC 4.65 M/CMM 4.70 - 6.10 07/11/2012 LOW [facility] HEMATOLOGY RDW 13.8 % 11.5 - 14.5 07/11/2012 Normal [facility] HEMATOLOGY MPV 9.4 fL 7.4 - 10.4 07/11/2012 Normal [facility] HEMATOLOGY Platelet 136 K/CMM 133 - 450 07/11/2012 Normal [facility] HEMATOLOGY Eosinophils 2.8 % 0.0 - 4.0 07/11/2012 Normal [facility] HEMATOLOGY Basophils 0.6 % 0.0 - 1.0 07/11/2012 Normal [facility] HEMATOLOGY Segs-Bands # 4.0 K/CMM 1.5 - 8.1 07/11/2012 Normal [facility] HEMATOLOGY Lymphocytes 26.0 % 20.0 - 40.0 07/11/2012 Normal [facility] HEMATOLOGY Segs 61.0 % 45.0 - 75.0 07/11/2012 Normal [facility] HEMATOLOGY Monocytes 9.6 % 2.0 - 12.0 07/11/2012 Normal [facility] HEMATOLOGY Basophils # 0.0 K/CMM 0.0 - 0.2 07/11/2012 Normal [facility] HEMATOLOGY Lymphocytes # 1.7 K/CMM 1.0 - 5.5 07/11/2012 Normal [facility] HEMATOLOGY Eosinophils # 0.2 K/CMM 0.0 - 0.5 07/11/2012 Normal [facility] HEMATOLOGY Monocytes # 0.6 K/CMM 0.0 - 0.8 07/11/2012 Normal [facility] CHEMISTRY Sodium Lvl 144 meq/L 135 - 145 07/11/2012 Normal [facility] CHEMISTRY Potassium Lvl 4.0 meq/L 3.5 - 5.1 07/11/2012 Normal [facility] CHEMISTRY Calcium Lvl 8.6 mg/dL 8.5 - 10.5 07/11/2012 Normal [facility] CHEMISTRY Chloride Lvl 110 meq/L 95 - 109 07/11/2012 [place] [facility] CHEMISTRY Creatinine Lvl 1.6 mg/dL 0.5 - 1.4 07/11/2012 [facility] CHEMISTRY Globulin 3.1 g/dL 2.0 - 4.0 07/11/2012 Normal [facility] CHEMISTRY AGAP 8.0 meq/L 10.0 - 20.0 07/11/2012 LOW [facility] CHEMISTRY B/C Ratio 17 6 - 25 07/11/2012 Normal [facility] CHEMISTRY A/G Ratio 1.1 0.7 - 1.6 07/11/2012 Normal [facility] CHEMISTRY AST 18 unit/L 0 - 37 07/11/2012 Normal [facility] CHEMISTRY Glucose Lvl 90 mg/dL 70 - 99 07/11/2012 Normal 1Interpretive Data: Adult reference range values reflect the clinical guidelines of the [place] [employer]. [facility] CHEMISTRY BUN 27 mg/dL 7 - 22 07/11/2012 [facility] [place] CHEMISTRY CO2 30 meq/L 24 - 32 07/11/2012 Normal [facility] CHEMISTRY ALT 24 unit/L 0 - 65 07/11/2012 Normal [facility] CHEMISTRY Albumin Lvl 3.5 g/dL 3.5 - 5.0 07/11/2012 Normal [facility] CHEMISTRY Total Protein 6.6 g/dL 6.4 - 8.4 07/11/2012 Normal [facility] CHEMISTRY Bili Total 0.6 mg/dL 0.2 - 1.3 07/11/2012 Normal [facility] CHEMISTRY Alk Phos 58 unit/L 39 - 136 07/11/2012 Normal [facility] Vital Signs Vital Sign Value Date Comments Source Respitory Rate 18 07/11/2012 [facility] Respitory Rate 18 07/11/2012 [facility] Respitory Rate 16 07/11/2012 [facility] Height 170.18 cm 07/11/2012 [facility] Weight 115.000 07/11/2012 [facility] Encounters Location Location Details Encounter Type Encounter Number Reason For Visit Attending Provider ADM Date DC Date Status Source [facility] Inpatient [id number] SHILPAIO JAQUEZ 07/13/2011 07/15/2011 Active [facility] KIM [id number] AUDENCIO JAQUEZ 07/11/2012 07/11/2012 Active [facility] OD [id number] 338 - PAIN NEC VIVIANA HAYDEN 08/23/2012 08/23/2012 Active [facility] [place] [facility] - [place] [facility] [id number] Rasheed Kaufman 04/24/2014 04/25/2014 [facility] [place] [facility] [place] [facility] [id number] Aleena Robbins 01/25/2016 01/26/2016 [facility] [place] [facility] - [place] [facility] [id number] Diego Cortes 04/27/2018 04/28/2018 [facility] [place] Outpatient [id number] WAQAS FLOWERS 11/01/2018 Active [facility] [id number] WAQAS FLOWERS 11/15/2018 Active [facility] [id number] WAQAS FLOWERS 11/19/2018 Active [facility] [id number] NURSE VISIT 02/25/2019 Active [facility] [id number] WAQAS FLOWERS 02/28/2019 Active [facility] Procedures Procedure Code Date Perfomer Comments Source
--- OUTSIDE RECORDS SUMMARY | 2018-11-27 10:47 | XMS REPORT | Summary of Care ---
Author Author [facility] [place] Organization [facility] [place] Address Unknown Phone Unavailable Encounter [facility] Carol_jose(FIN) [id number] Date(s): 04/27/18 - 04/27/18 [facility] [place] [address] [place] [address] 7 [phone] Discharge Disposition: Home or Self Care Attending Physician: Diego Cortes MD Referring Physician: Diego Cortes MD Vital Signs No data available for this [...] No data available for this section Immunizations Given and Recorded Vaccine Date Status Refusal Reason influenza virus vaccine, inactivated 07/14/11 Given Procedures No data available for this section Social History Social History Type Response Assessment and Plan No data available for this section
--- OUTSIDE RECORDS SUMMARY | 2018-11-27 10:47 | XMS REPORT | Summary of Care ---
Author Organization Unknown Address Unknown Phone Unavailable Encounter [facility] [place]([facility]) [id number] Date(s): 04/24/14 - 04/24/14 [facility] Outpatient Imaging - [address] [address] Discharge Disposition: Home Physician Attending: Rasheed Kaufman MD Reason for Visit V12.69 - HX RESP SYSTEM Problem List Condition Effective Dates Status Health Status Informant Diabetes mellitus Active type II(Confirmed) History of repair of Active umbilical hernia(Confirmed) HTN - Active Hypertension(Confirm ed) Obesity(Confirmed) Active Pulmonary Active asbestosis(Confirmed ) Sleep Active apnea(Confirmed) Allergies, Adverse Reactions, Alerts Substance Reaction Severity Status NKDA Active Medications No data available for this section Medications Administered During Your Visit No data available for this section Immunizations Vaccine Date Refusal Reason influenza virus vaccine, inactivated 07/14/11 Social History Social History Type Response
[2018-11-27] MEDS ORDERED: TAMSULOSIN HCL0.4 MG PO (11:48)
[2018-11-27] MEDS ORDERED: SODIUM BICARBO650 MG PO (11:48)
[2018-11-27] MEDS ORDERED: HUMALOG (11:48)
[2018-11-27] MEDS ORDERED: VITAMIN D250000 UNIT PO (11:48)
[2018-11-27 11:50] LABS: BASOPHILS % 0.6 % (0.0-1.0); EOSINOPHILS # (AUTO) 0.1 (0.0-0.4); EOSINOPHILS % 0.7 % (0.0-6.0); HEMATOCRIT 31.2 % (38.2-49.6); LYMPHOCYTES # (AUTO) 0.7 (1.0-3.2); LYMPHOCYTES % 10.4 % (18.0-39.1); MEAN CORPUSCULAR HEMOGLOBIN 28.5 pg (28-32); MEAN CORPUSCULAR VOLUME 86.4 fL (81-99); MONOCYTES # (AUTO) 0.5 (0.2-0.8); MONOCYTES % 6.9 % (4.4-11.3); NEUTROPHILS # (AUTO) 5.8 (2.1-6.9); PLATELET COUNT 150 x10e3/uL (140-360); RED BLOOD COUNT 3.61 x10e6/uL (4.3-5.7); RED CELL DISTRIBUTION WIDTH 13.4 % (11.7-14.4)
[2018-11-27 11:51] LABS: HEMOGLOBIN 10.3 g/dL (14.0-18.0)
[2018-11-27 11:52] LABS: INR 0.99; PARTIAL THROMBOPLASTIN TIME 32.7 seconds (23.8-35.5)
[2018-11-27 12:03] LABS: ALBUMIN 3.3 g/dL (3.5-5.0); ALBUMIN/GLOBULIN RATIO 1.1 (0.8-2.0); ANION GAP 14.5 mmol/L (8-16); CALCIUM 8.9 mg/dL (8.4-10.2); CREATININE, SERUM 6.04 mg/dL (0.72-1.25); POTASSIUM 4.5 mmol/L (3.5-5.1)
[2018-11-27 12:10] LABS: BILIRUBIN,URINE NEGATIVE (NEGATIVE); CLARITY,URINE SL CLOUDY (CLEAR); COLOR,URINE YELLOW (YELLOW); KETONES,URINE NEGATIVE (NEGATIVE); LEUKOCYTE ESTERASE ,URINE NEGATIVE (NEGATIVE); NITRITE,URINE NEGATIVE (NEGATIVE); PROTEIN,URINE DIPSTICK 3+ (NEGATIVE); URINE UROBILINOGEN 0.2 mg/dL (0.2 - 1)
[2018-11-27 12:13] LABS: EPITHELIAL CELLS,URINE RARE /LPF; RBC,URINE 0-5 /HPF (0-5); WBC,URINE (MAN) 0-5 /HPF (0-5)
[2018-11-27 12:26] LABS: THYROID STIMULATING HORMONE 1.155 uIU/mL (0.350-4.940)
--- NOTE | 2018-11-27 12:33 | Diagnostic Imaging Report ---
EXAMINATION: CHEST SINGLE (PORTABLE) INDICATION: Hypoglycemia. COMPARISON: 03/19/10. FINDINGS: TUBES and LINES: None. LUNGS: Lungs are mildly hypoinflated. There is no evidence of pneumonia or pulmonary edema. PLEURA: No pleural effusion or pneumothorax. HEART AND MEDIASTINUM: The cardiomediastinal silhouette is magnified by portable technique. BONES AND SOFT TISSUES: No acute osseous lesion. Soft tissues are unremarkable. UPPER ABDOMEN: No free air under the diaphragm. IMPRESSION: No acute thoracic abnormality. Signed by: Dr. Osman Robles M.D. on 11/27/2018 12:29 PM
[2018-11-27] MEDS ORDERED: VALSARTAN 80 MG TAB PO ONE (13:30)
[2018-11-27] MEDS ORDERED: DEXTROSE 50% SYRINGE 50 ML IV PRN (14:30)
--- OUTSIDE RECORDS SUMMARY | 2018-11-27 15:27 | XMS REPORT | Clinical Summary ---
Author Author M[facility]ELINE [facility] Address Unknown Phone Unavailable Care Team Providers Care Audit Lead Name Role Phone Pcp, No PCP Unavailable [...] PEG Take 1 packet 1 packet 0 [id number] by mouth once 8 C (MOVIPREP) for 1 dose. 100-7.5-2.691 gram PwPk packet Active Problems Patient Care Coordination Note Endocrinology- Hue Brown Neurologist- Dr. 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 [phone] Problem Noted Date Fatty liver 04/30/2018 Last [...] Ava Matamorosen, MD 09/04/2018 Evaluation Transplant Kelsie oBb, MARICARMEN 06/28/2018 Anesthesia Gastroenterology Event Trino Dang [...] stage 4 chronic kidney disease, unspecified whether fdc insulin use (HCC) 04/03/2018 Orders Only Transplant Hepatology Sergio Mancia MD Lands, Sarah Elizabeth, NP Pre-transplant evaluation for chronic kidney disease (Primary Dx); Uncontrolled other specified diabetes mellitus with stage 4 chronic kidney disease, unspecified whether fdc insulin use (HCC); Essential hypertension, malignant; ESRD [...] stage 4 chronic kidney disease, unspecified whether terminal carman insulin use (HCC) 02/28/2018 Hospital Radiology Encounter Sergio Mancia MD ESRD (end stage renal disease) (HCC); Pre-transplant evaluation for chronic kidney disease; Anemia of renal disease; Essential hypertension, malignant; Uncontrolled other specified diabetes mellitus with stage 4 chronic kidney disease, unspecified whether terminal carman insulin use (HCC) 02/28/2018 Hospital Encounter Allyson Dubois II, MD Yao, June, MD ESRD (end stage renal disease) (HCC) (Primary Dx) 02/28/2018 Evaluation Transplant Allyson Dubois II, MD ESRD (end stage renal disease) (HCC); Pre-transplant evaluation for chronic kidney disease; Anemia of renal disease; Essential hypertension, malignant; Uncontrolled other specified diabetes mellitus with stage 4 chronic kidney disease, unspecified whether terminal carman insulin use (HCC) 02/28/2018 Orders Only Transplant Hepatology Allyson Dubois II, MD Newby, Karen, RN ESRD (end stage renal disease) (HCC) (Primary Dx); Pre-transplant evaluation for chronic kidney disease; Anemia of renal disease; Essential hypertension, malignant; Uncontrolled other specified diabetes mellitus with stage 4 chronic kidney disease, unspecified whether terminal carman insulin use (HCC) 02/28/2018 Office Visit Transplant [...] Inhaled Oxygen - Concentration 09/04/2018 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 Weight 104.5 kg (230 lb 6.4 oz) 09/04/2018 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 Height 167.5 cm (5' 5.95") 09/04/2018 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 Body Mass Index 37.25 Plan of Treatment Care Team Description Date Type Specialty Allyson Dubois II, MD [address] [place] [address] Resource, [facility] F 12/07/2018 Office Visit Hepatology [...] AM CDT Screening for cancer Thrombocytopenia (HCC) [id number]\\, Routine 04/30/2018 Fatty liver SERUM 10:42 AM [...] (end stage renal 8:53 AM CDT disease) ([facility]) Pre-transplant evaluation for chronic kidney disease Anemia of renal disease Essential hypertension, malignant Uncontrolled other specified diabetes mellitus with stage 4 chronic kidney disease, unspecified whether fdc insulin use ([facility]) TYPE AND SCREEN, Routine 04/03/2018 ESRD (end stage renal AUTOMATED 8:49 AM CDT disease) (HCC) Pre-transplant evaluation for chronic kidney disease Anemia of renal disease Essential hypertension, malignant Uncontrolled other specified diabetes mellitus with stage 4 chronic kidney disease, unspecified whether terminal carman insulin use ([facility]) TRANSFUSION SERVICE 03/01/2018 REPORT - SCAN 5:45 PM CDT US ABDOMEN COMPLETE Routine 02/28/2018 Pre-transplant evaluation 1:40 PM CDT for chronic kidney disease XR CHEST 2 VIEWS Routine 02/28/2018 Pre-transplant evaluation 11:28 AM CDT for chronic kidney disease URINALYSIS W/ MICROSCOPIC Routine 02/28/2018 ESRD (end stage renal 8:27 AM CDT disease) ([facility]) Pre-transplant evaluation for chronic kidney disease Anemia of renal disease Essential hypertension, malignant Uncontrolled other specified diabetes mellitus with stage 4 chronic kidney disease, unspecified whether fdc insulin use ([facility]) URIC ACID Routine 02/28/2018 ESRD (end stage renal 8:27 AM CDT disease) (HCC) Pre-transplant evaluation for chronic kidney disease Anemia of renal disease Essential hypertension, malignant Uncontrolled other specified diabetes mellitus with stage 4 chronic kidney disease, unspecified whether terminal carman insulin use ([facility]) PHOSPHORUS Routine 02/28/2018 ESRD (end stage renal 8:27 AM CDT disease) ([facility]) Pre-transplant evaluation for chronic kidney disease Anemia of renal disease Essential hypertension, malignant Uncontrolled other specified diabetes mellitus with stage 4 chronic kidney disease, unspecified whether terminal carman insulin use ([facility]) LACTATE DEHYDROGENASE Routine 02/28/2018 ESRD (end stage renal (LDH) 8:27 AM CDT disease) ([facility]) Pre-transplant evaluation for chronic kidney disease Anemia of renal disease Essential hypertension, malignant Uncontrolled other specified diabetes mellitus with stage 4 chronic kidney disease, unspecified whether fdc insulin use ([facility]) GAMMA GLUTAMYL Routine 02/28/2018 ESRD (end stage renal TRANSFERASE (GGT) 8:27 AM CDT disease) ([facility]) Pre-transplant evaluation for chronic kidney disease Anemia of renal disease Essential hypertension, malignant Uncontrolled other specified diabetes mellitus with stage 4 chronic kidney disease, unspecified whether fdc insulin use ([facility]) COMPREHENSIVE METABOLIC Routine 02/28/2018 ESRD (end stage renal PANEL 8:27 AM CDT disease) ([facility]) Pre-transplant evaluation for chronic kidney disease Anemia of renal disease Essential hypertension, malignant Uncontrolled other specified diabetes mellitus with stage 4 chronic kidney disease, unspecified whether terminal carman insulin use ([facility]) URINE CULTURE Routine 02/28/2018 ESRD (end stage renal 8:27 AM CDT disease) ([facility]) Pre-transplant evaluation for chronic kidney disease Anemia of renal disease Essential hypertension, malignant Uncontrolled other specified diabetes mellitus with stage 4 chronic kidney disease, unspecified whether fdc insulin use ([facility]) CBC W/PLT COUNT & AUTO Routine 02/28/2018 ESRD (end stage renal DIFFERENTIAL 8:26 AM CDT disease) ([facility]) Pre-transplant evaluation for chronic kidney disease Anemia of renal disease Essential hypertension, malignant Uncontrolled other specified diabetes mellitus with stage 4 chronic kidney disease, unspecified whether terminal carman insulin use ([facility]) PSA Routine 02/28/2018 ESRD (end stage renal 8:26 AM CDT disease) ([facility]) Pre-transplant evaluation for chronic kidney disease Anemia of renal disease Essential hypertension, malignant Uncontrolled other specified diabetes mellitus with stage 4 chronic kidney disease, unspecified whether fdc insulin use ([facility]) VARICELLA ZOSTER Routine 02/28/2018 ESRD (end stage renal ANTIBODY, IGG 8:26 AM CDT disease) ([facility]) Pre-transplant evaluation for chronic kidney disease Anemia of renal disease Essential hypertension, malignant Uncontrolled other specified diabetes mellitus with stage 4 chronic kidney disease, unspecified whether terminal carman insulin use ([facility]) T SPOT TB Routine 02/28/2018 ESRD (end stage renal 8:26 AM CDT disease) ([facility]) Pre-transplant evaluation for chronic kidney disease Anemia of renal disease Essential hypertension, malignant Uncontrolled other specified diabetes mellitus with stage 4 chronic kidney disease, unspecified whether fdc insulin use (HCC) RPR Routine 02/28/2018 ESRD (end stage renal 8:26 AM CDT disease) (HCC) Pre-transplant evaluation for chronic kidney disease Anemia of renal disease Essential hypertension, malignant Uncontrolled other specified diabetes mellitus with stage 4 chronic kidney disease, unspecified whether terminal carman insulin use (HCC) PT/APTT Routine 02/28/2018 ESRD (end stage renal 8:26 AM CDT disease) (HCC) Pre-transplant evaluation for chronic kidney disease Anemia of renal disease Essential hypertension, malignant Uncontrolled other specified diabetes mellitus with stage 4 chronic kidney disease, unspecified whether fdc insulin use (HCC) PTH, INTACT Routine 02/28/2018 ESRD (end stage renal 8:26 AM CDT disease) (HCC) Pre-transplant evaluation for chronic kidney disease Anemia of renal disease Essential hypertension, malignant Uncontrolled other specified diabetes mellitus with stage 4 chronic kidney disease, unspecified whether terminal carman insulin use (HCC) HIV-1 ANTIGEN WITH Routine 02/28/2018 ESRD (end stage renal HIV-1/2 ANTIBODY 8:26 AM CDT disease) (HCC) Pre-transplant evaluation for chronic kidney disease Anemia of renal disease Essential hypertension, malignant Uncontrolled other specified diabetes mellitus with stage 4 chronic kidney disease, unspecified whether fdc insulin use (HCC) HEPATITIS C ANTIBODY Routine 02/28/2018 ESRD (end stage renal 8:26 AM CDT disease) (HCC) Pre-transplant evaluation for chronic kidney disease Anemia of renal disease Essential hypertension, malignant Uncontrolled other specified diabetes mellitus with stage 4 chronic kidney disease, unspecified whether terminal carman insulin use (HCC) HEPATITIS B CORE Routine 02/28/2018 ESRD (end stage renal ANTIBODY, IGM 8:26 AM CDT disease) (HCC) Pre-transplant evaluation for chronic kidney disease Anemia of renal disease Essential hypertension, malignant Uncontrolled other specified diabetes mellitus with stage 4 chronic kidney disease, unspecified whether terminal carman insulin use (HCC) HEPATITIS B SURFACE Routine 02/28/2018 ESRD (end stage renal ANTIGEN 8:26 AM CDT disease) (HCC) Pre-transplant evaluation for chronic kidney disease Anemia of renal disease Essential hypertension, malignant Uncontrolled other specified diabetes mellitus with stage 4 chronic kidney disease, unspecified whether fdc insulin use (HCC) HEPATITIS B SURFACE Routine 02/28/2018 ESRD (end stage renal ANTIBODY 8:26 AM CDT disease) (HCC) Pre-transplant evaluation for chronic kidney disease Anemia of renal disease Essential hypertension, malignant Uncontrolled other specified diabetes mellitus with stage 4 chronic kidney disease, unspecified whether terminal carman insulin use ([facility]) EBV ANTIBODY, IGM Routine 02/28/2018 ESRD (end stage renal 8:26 AM CDT disease) ([facility]) Pre-transplant evaluation for chronic kidney disease Anemia of renal disease Essential hypertension, malignant Uncontrolled other specified diabetes mellitus with stage 4 chronic kidney disease, unspecified whether fdc insulin use (HCC) EBV ANTIBODY, IGG Routine 02/28/2018 ESRD (end stage renal 8:26 AM CDT disease) ([facility]) Pre-transplant evaluation for chronic kidney disease Anemia of renal disease Essential hypertension, malignant Uncontrolled other specified diabetes mellitus with stage 4 chronic kidney disease, unspecified whether fdc insulin use ([facility]) CYTOMEGALOVIRUS ANTIBODY, Routine 02/28/2018 ESRD (end stage renal IGM 8:26 AM CDT disease) (HCC) Pre-transplant evaluation for chronic kidney disease Anemia of renal disease Essential hypertension, malignant Uncontrolled other specified diabetes mellitus with stage 4 chronic kidney disease, unspecified whether terminal carman insulin use ([facility]) CYTOMEGALOVIRUS ANTIBODY, Routine 02/28/2018 ESRD (end stage renal IGG 8:26 AM CDT disease) (HCC) Pre-transplant evaluation for chronic kidney disease Anemia of renal disease Essential hypertension, malignant Uncontrolled other specified diabetes mellitus with stage 4 chronic kidney disease, unspecified whether fdc insulin use ([facility]) CBC W/PLT COUNT & AUTO Routine 02/28/2018 ESRD (end stage renal DIFFERENTIAL 8:26 AM CDT disease) ([facility]) Pre-transplant evaluation for chronic kidney disease Anemia of renal disease Essential hypertension, malignant Uncontrolled other specified diabetes mellitus with stage 4 chronic kidney disease, unspecified whether terminal carman insulin use ([facility]) BLOOD TYPING, AUTOMATED Routine 02/28/2018 ESRD (end stage renal 8:25 AM CDT disease) ([facility]) Pre-transplant evaluation for chronic kidney disease Anemia of renal disease Essential hypertension, malignant Uncontrolled other specified diabetes mellitus with stage 4 chronic kidney disease, unspecified whether fdc insulin use ([facility]) DIRECT AHG (SUKHDEEP)/DIRECT Routine 02/28/2018 ESRD (end stage renal MIL 8:25 AM CDT disease) ([facility]) Pre-transplant evaluation for chronic kidney disease Anemia of renal disease Essential hypertension, malignant Uncontrolled other specified diabetes mellitus with stage 4 chronic kidney disease, unspecified whether terminal carman insulin use ([facility]) HEMOGLOBIN A1C Routine 02/28/2018 ESRD (end stage renal 8:25 AM CDT disease) ([facility]) Pre-transplant evaluation for chronic kidney disease Anemia of renal disease Essential hypertension, malignant Uncontrolled other specified diabetes mellitus with stage 4 chronic kidney disease, unspecified whether fdc insulin use ([facility]) HLA TYPING CI Routine 02/28/2018 ESRD (end stage renal 8:25 AM CDT disease) ([facility]) Pre-transplant evaluation for chronic kidney disease Anemia of renal disease Essential hypertension, malignant Uncontrolled other specified diabetes mellitus with stage 4 chronic kidney disease, unspecified whether fdc insulin use ([facility]) HLA TYPING CII Routine 02/28/2018 ESRD (end stage renal 8:25 AM CDT disease) ([facility]) Pre-transplant evaluation for chronic kidney disease Anemia of renal disease Essential hypertension, malignant Uncontrolled other specified diabetes mellitus with stage 4 chronic kidney disease, unspecified whether fdc insulin use ([facility]) FLOW PRA CLASS I WITH Routine 02/28/2018 ESRD (end stage renal REFLEX TO ANTIBODY 8:25 AM CDT disease) ([facility]) SPECIFICITY Pre-transplant evaluation for chronic kidney disease Anemia of renal disease Essential hypertension, malignant Uncontrolled other specified diabetes mellitus with stage 4 chronic kidney disease, unspecified whether fdc insulin use ([facility]) FLOW PRA CLASS II WITH Routine 02/28/2018 ESRD (end stage renal REFLEX TO ANTIBODY 8:25 AM CDT disease) ([facility]) SPECIFICITY Pre-transplant evaluation for chronic kidney disease Anemia of renal disease Essential hypertension, malignant Uncontrolled other specified diabetes mellitus with stage 4 chronic kidney disease, unspecified whether terminal carman insulin use (HCC) after 11/26/2017 Results * POC-Glucose meter (06/28/2018 12:59 PM CDT) Only the most recent of 2 results within the time period is included. POC-Glucose Meter 152 (H)Comment: TESTED AT 70 - 110 mg/dL [facility] [address] [facility] [id number] Specimen Blood Performing Organization Address City/State/Zipcode Phone Number [facility] [address] [place] [address] [facility] * REPORT OF PROCEDURE - ENDOSCOPY URL (06/28/2018 12:39 PM CDT) Narrative Performed At * Tissue Exam (06/28/2018 12:18 PM CDT) Only the most recent of 2 results within the time period is included. Case Report Surgical Pathology [facility] Report [facility] Case: [id number] Authorizing Provider:Trino Dang MD Collected: 06/28/2018 1218 Ordering Location: [facility] Endoscopy Received: 06/28/2018 1526 Services Pathologist: Elton Casillas MD Specimen:Polyp, Colon - Cecum DIAGNOSIS CECUM POLYP, BIOPSY [facility] - COLONIC [place], WITHIN [facility] NORMAL LIMITS Signing Pathologist Direct Phone Line: [phone] CPT Code(s) 71817 [facility] CLINICAL HISTORY Fatty liver [facility] SPECIMEN SOURCE Cecum colon polyp [facility] GROSS DESCRIPTION The specimen is received in a [facility] formalin-filled container [facility] labeled with the patient's information and labeled "cecum polyp" and consists of five fragments of cárdenas tissue ranging from 0.1 to 0.6 cm submitted entirely in A1. CG/ew MICROSCOPIC DESCRIPTION Sections reveal pieces of [facility] benign colonic mucosa with [facility] mild chronic inflammation within the lamina [...] Performing Organization Address City/State/Zipcode Phone Number [facility] [address] [place] [address] [facility] * REPORT OF PROCEDURE - ENDOSCOPY URL (06/28/2018 11:55 AM CDT) Narrative Performed At * 2D Echo W/Doppler(CW/PW/Color) (06/05/2018 7:44 AM CDT) Ejection Fraction [facility] Narrative Performed At Transthoracic Echocardiography Report (TTE) [facility] Demographics [facility] Patient NameAmna HARPER of Study06/05/2018 LAZARO ULLOA Gender Male Visit [id number] Race Unknown Numberop Number Date of 1950 [facility] Centersoraya hudson Age 68 year(s) [facility] juan j Small MD Procedure Type of Study TTE procedure:2DECHO W DOPPLER(CW/PW/COLOR) Indications:Pre-surgical evaluation of organ transplant. Clinical History AVF,CKD,DM,HTN,OK,OBESITY,STROKE Height: 67 inches Weight: 107.05 kg (236 [...] 06/05/2018 LAZARO ULLOA Gender Male Visit Number [id number] Race Unknown Room Number op Number Date of 1950 Referring Sherly Christie Physician Age 68 year(s) Non Profit Job Titles Francois Saravia Interpreting Kamran Lomax MD Procedure Type of Study TTE procedure:2DECHO W DOPPLER(CW/PW/COLOR) Indications:Pre-surgical evaluation of organ transplant. Clinical History AVF,CKD,DM,HTN,OK,OBESITY,STROKE Height: 67 inches Weight: 107.05 kg (236 [...] LVOT CI: 1.86 l/min/m^2 Performing Organization Address City/[facility]/Zipcode Phone Number [facility] * Occult blood, stool (06/05/2018 7:40 AM CDT) Only the most recent of 2 results within the time period is included. Occult blood Negative Negative [facility] Specimen Stool - Stool Performing Organization Address City/[facility]/Zipcode Phone Number [facility] [address] [place] [address] [facility] * IR Transcatheter Biopsy of Kidney/Liver (05/22/2018 10:50 AM CDT) Narrative Performed At FINAL REPORT 1010data History: Abnormal liver function tests. PROCEDURE: Following [...] the right internal jugular vein. A 9 Vietnamese sheath was placed at the access site. A 5 Vietnamese multipurpose catheter was placed over a wire [...] compression. Following a discussion with the referring mechanical adjuster, Dr. Fernandez, by telephone, the patient's abdominal [...] MD Report Verified Date/Time:05/22/2018 14:18:18 Reading Location: [place] [address] Angio Body Reading Room Procedure Note Interface, [...] the right internal jugular vein. A 9 Vietnamese sheath was placed at the access site. A 5 Vietnamese multipurpose catheter was placed over a wire [...] compression. Following a discussion with the referring mechanical adjuster, Dr. Fernandez, by telephone, the patient's abdominal [...] Report Verified Date/Time: 05/22/2018 14:18:18 Reading Location: [facility] [address] Angio Body Reading Room Performing Organization Address City/State/Zipcode Phone Number [facility] * PT/aPTT (05/22/2018 6:43 AM CDT) Only the most recent of 2 results within the time period is included. Protime 15.9 (H) 11.7 - 14.7 seconds [facility] INR 1.3 <=5.9 [facility] PTT 33.1 22.5 - 36.0 seconds [facility] Specimen Blood Narrative Performed At RECOMMENDED COUMADIN/WARFARIN INR THERAPY RANGES [facility] STANDARD DOSE: 2.0 - 3.0 Includes: PROPHYLAXIS for venous thrombosis, [facility] systemic embolization; TREATMENT for venous thrombosis and/or pulmonary embolus. HIGH RISK: Target INR is 2.5-3.5 for patients with mechanical heart valves. Performing Organization Address City/State/Zipcode Phone Number [facility] [address] [place] [address] [facility] * CBC with platelet count + automated diff (05/22/2018 6:43 AM CDT) Only the most recent of 3 results within the time period is included. WBC 5.9 3.5 - 10.5 K/L [facility] RBC 3.78 (L) 4.63 - 6.08 M/L [facility] Hemoglobin 10.9 (L) 13.7 - 17.5 GM/DL [facility] Hematocrit 33.7 (L) 40.1 - 51.0 % [facility] MCV 89.2 79.0 - 92.2 fL [facility] MCH 28.8 25.7 - 32.2 pg [facility] MCHC 32.3 32.3 - 36.5 GM/DL [facility] RDW 13.2 11.6 - 14.4 % [facility] Platelets 150 150 - 450 K/CU MM [facility] MPV 11.0 9.4 - 12.4 fL [facility] nRBC 0 0 - 0 /100 WBC [facility] % Neutros 57 % [facility] % Lymphs 29 % [facility] % Monos 10 % [facility] % Eos 3 % [facility] % Baso 1 % [facility] # Neutros 3.35 1.78 - 5.38 K/L [facility] # Lymphs 1.70 1.32 - 3.57 K/L [facility] # Monos 0.62 0.30 - 0.82 K/L [facility] # Eos 0.20 0.04 - 0.54 K/L [facility] # Baso 0.05 0.01 - 0.08 K/L [facility] Immature 0 0 - 1 % [facility] Granulocytes-[facility] Specimen Blood Performing Organization Address City/State/Zipcode Phone Number [facility] [address] [place] [address] [facility] * Comprehensive metabolic panel (05/22/2018 6:43 AM CDT) Only the most recent of 3 results within the time period is included. Protein, Total 6.7 6.0 - 8.3 gm/dL [facility] Albumin 3.9 3.5 - 5.0 g/dL [facility] Alkaline Phosphatase 69 40 - 150 U/L [facility] Total Bilirubin 0.4 0.2 - 1.2 mg/dL [facility] Sodium 144 136 - 145 meq/L [facility] Potassium 4.6 3.5 - 5.1 meq/L [facility] Chloride 113 (H) 98 - 107 meq/L [facility] CO2 22 22 - 29 meq/L [facility] BUN 74 (H) 7 - 21 mg/dL [facility] Creatinine 5.24 (H) 0.57 - 1.25 mg/dL [facility] Glucose 101 70 - 105 mg/dL [facility] Calcium 9.4 8.4 - 10.2 mg/dL [facility] AST 14 5 - 34 U/L [facility] ALT 13 6 - 55 U/L [facility] EGFR 11Comment: ESTIMATED GFR IS mL/min/1.73 sq m [facility] NOT ACCURATE CREATININE [facility] CLEARANCE IN PREDICTING GLOMERULAR FILTRATION RATE. ESTIMATED GFR IS NOT APPLICABLE FOR DIALYSIS PATIENTS. Specimen Blood Performing Organization Address City/[facility] Centercode Phone Number [address] * Hepatitis A antibody, IgG ([facility] Only) (04/30/2018 12:17 PM CDT) Hep A IgG Nonreactive Nonreactive [facility] Specimen Blood Performing Organization Address [facility] Centercode Phone Number [address] * Hepatitis A antibody, IgM (04/30/2018 12:17 PM CDT) Hep A IgM HEPATITIS A TEST NEGATIVE Nonreactive [facility] Specimen Blood Performing Organization Address [facility] Centercode Phone Number [address] * Liver Fibrosis, FibroTest-ActiTest Panel (04/30/2018 [...] INCORPORATED Narrative Performed At Performing Organization Address City/[facility] Centercode Phone Number [facility], [address] [place], [place] INCORPORATED [employer] [facility] [facility] [address] * Mitochondrial Antibodies, M2 (04/30/2018 10:42 AM CDT) Mitochondria M2 Ab <20.0 See Note: U [facility] Comment: INCORPORATED Reference Range: NEGATIVE:< OR=20.0 EQUIVOCAL: 20.1-24.9 POSITIVE:> OR=25.0 Specimen Blood Narrative Performed At Performing Lab [facility] [place] [address] Trav Schwartz MD, PhD, ESTRELLITA Performing Organization Address [facility] Phone Number [facility] [employer] [place], [address] [place], [place] [address]SendGriddr. [facility] [address] * Iron, TIBC, % sat. (without ferritin) (04/30/2018 10:42 AM CDT) Iron 75 40 - 160 ug/dL [facility] TIBC 350 250 - 450 ug/dL [facility] Iron % Saturation 21 20 - 55 % [facility] Specimen Blood Performing Organization Address [facility] Phone Number [facility] [address] * Actin (Smooth Muscle) Antibody, IgG [...] Performed At Performing Lab [facility] [employer] [address] [address] Trav Schwartz MD, PhD, ESTRELLITA Performing Organization Address [facility] Phone Number [employer] [place], [address] [place], [place] [address]SendGriddr. [facility] [address] * Tagwd-6-Kzqvezzyibn (04/30/2018 10:42 AM CDT) A-1 Antitrypsin 165.60 90.00 - 200.00 mg/dL [facility] Specimen Blood Performing Organization Address City/[facility]/Zipcode Phone Number [facility] [address] [place] [address] [facility] * Ceruloplasmin (04/30/2018 10:42 AM CDT) Ceruloplasmin 30 18 - 36 mg/dL [facility] Comment: INCORPORATED Adults:Males: 18-36 mg/dL Fe males: 18-53 mg/dL Pediatrics: Males (mg/dL)Females (mg/dL) ------ 0-30 Days 8-25 3-28 31 Days-11 Month 15-481 5-43 1-3 Years2 5 -54 4-6 Years2 9-56 -54 7-9 Years2 [address] -48 10-12 Zioiv62-62 21-48 13-15 Qygtx35-76 21-46 16-18 Krues90-91 22-50 The pediatric ranges are derived from the following criteria: Mckenzie SJ, Srinivasan SANCHEZ, Zaida J et al Pediatric reference ranges for Dvkd-8-Weljllyqwjzmh and ceruloplasmin. Clin. Chem 1997; 43:S1999 Pediatric Reference Ranges, 2nd., SF Mckenzieet al. editors. [employer], [place], [place] 1997. Specimen Blood Narrative Performed At Performing Lab [facility] *[employer] [employer] [facility] [employer] [place], [address] [place] [address] MD, PhD Performing Organization Address City/[facility]/Zipcode Phone Number [facility] [employer] [place], [address] [place], [place] [employer] SK[employer] Holdingsdr. [facility] [address] * Alpha fetoprotein (AFP), tumor marker (04/30/2018 10:42 AM CDT) Alpha-Fetoprotein <2.0 <10.0 ng/mL [facility] Specimen Blood Performing Organization Address City/[facility]/Zipcode Phone Number [address] [phone] [facility] * Hepatitis B surface antibody (04/30/2018 10:42 AM CDT) Only the most recent of 2 results within the time period is included. Hep B S Ab <8.0 <8.0 mIU/mL [facility] Specimen Blood Performing Organization Address City/[facility] Centercode Phone Number [address] [address] [facility] * Pro-time/INR (04/30/2018 10:42 AM CDT) Protime 14.2 11.7 - 14.7 seconds [facility] INR 1.1 <=5.9 [facility] Specimen Blood Narrative Performed At RECOMMENDED COUMADIN/WARFARIN INR THERAPY RANGES [facility] STANDARD DOSE: 2.0 - 3.0 Includes: PROPHYLAXIS for venous thrombosis, [facility] systemic embolization; TREATMENT for venous thrombosis and/or pulmonary embolus. HIGH RISK: Target INR is 2.5-3.5 for patients with mechanical heart valves. Performing Organization Address [facility] Centercoin [place] [address] [facility] * Anti-Nuclear Antibody (CARRILLO) (04/30/2018 10:42 AM CDT) CARRILLO Negative Negative [facility] Specimen Blood Narrative Performed At Test performed by IFA method. [facility] Test performed by IFA method. [facility] Performing Organization Address [facility] Centercode Phone Number [address] [address] [facility] * Ferritin (04/30/2018 10:42 AM CDT) Ferritin 228 5 - 275 ng/mL [facility] Specimen Blood Performing Organization Address City/[facility]/Zipcode Phone Number [address] [address] [phone] * Bilirubin, direct (04/30/2018 10:42 AM CDT) Bilirubin, Direct 0.2 0.1 - 0.5 mg/dL [facility] Specimen Blood Performing Organization Address City/[facility] Centercoin Phone Number [place] [phone] * TRANSFUSION SERVICE REPORT - SCAN (04/04/2018 6:03 PM CDT) Only the most recent of 2 results within the time period is included. Narrative Performed At * Lipid panel (04/03/2018 8:53 AM CDT) Triglycerides 68 mg/dL [facility] Cholesterol 115 mg/dL [facility] HDL 51 mg/dL [facility] LDL Calculated 50 mg/dL [facility] Specimen Blood Narrative Performed At Triglyceride Reference Range: [facility] Low Risk <150 [facility] [id number] High Risk 200-499 Very High Risk>=500 Cholesterol Reference Range: Low Risk <200 Bzafgxztkt607-834 High Risk>240 HDL Cholesterol Reference Range: Low Risk >=60 High Risk <40 LDL Cholesterol Reference Range: Optimal<100 Near Jinoxyi632-388 Urimdelepj972-276 Ugij668-708 Very High >=190 Performing Organization Address [facility] Phone Number [place] [phone] [place] [address] * Type and Screen, Automated (04/03/2018 8:49 AM CDT) ABO/RH AUTOMATED (BEAKER) O POSITIVE [facility] Ab Scrn NEGATIVE [facility] Specimen Blood Performing Organization Address City/[facility] Centercode Phone Number [address] [address] [phone] [place] [address] * US abdomen complete (02/28/2018 1:40 PM [...] MD Report Verified Date/Time:02/28/2018 15:23:22 Reading Location: [address] Radiology Reading Room Procedure Note Interface, [...] Report Verified Date/Time: 02/28/2018 15:23:22 Reading Location: [address] Radiology Reading Room Performing Organization Address [facility] Phone Number GE RIS * XR chest [...] MD Report Verified Date/Time:02/28/2018 12:42:19 Reading Location: [facility] Radiology Reading Room Procedure Note Interface, External [...] Report Verified Date/Time: 02/28/2018 12:42:19 Reading Location: [facility] Radiology Reading Room Performing Organization Address [facility] Centercoin Phone Number GE RIS * Urinalysis, Routine (02/28/2018 8:27 AM CDT) Color, UA Light Yellow [facility] Clarity, UA Clear [facility] Specific [place], UA 1.009 1.001 - 1.035 [facility] pH, UA 6.5 5.0 - 8.0 [facility] Protein, UA 300 mg/dL (A) Negative [facility] Glucose, UA Negative Negative [facility] Ketones, UA Negative Negative [facility] Bilirubin, UA Negative Negative [facility] Blood, UA Negative Negative [facility] Nitrite, UA Negative Negative [facility] Leukocytes, UA Negative Negative [facility] Urobilinogen, UA 0.2 0.2 - 1.0 mg/dL [facility] RBC, UA 1 /HPF [facility] WBC, UA 1 /HPF [facility] Bacteria, UA Rare [facility] Mucus Rare [facility] Squam Epithel, UA <1 /HPF [facility] Specimen Source [facility] Specimen Urine Performing Organization Address City/[facility]/Zipcode Phone Number [facility] [address] [place] [id number] [place] [address] [phone] [address] * Urine Culture (02/28/2018 8:27 AM CDT) Result No growth [facility] Specimen Urine Performing Organization Address City/[facility]/Zipcode Phone Number [phone] [place] [address] [phone] [address] * Uric Acid (02/28/2018 8:27 AM CDT) Uric Acid 7.0 2.6 - 7.2 mg/dL [facility] Specimen Blood Performing Organization Address City/[facility]/Zipcode [place] [address] [phone] [place] [address] * Phosphorus (02/28/2018 8:27 AM CDT) Phosphorus 4.8 (H) 2.3 - 4.7 mg/dL [facility] Specimen Blood Performing Organization Address City/[facility] Centercode Phone Number [place] [phone] * Lactate Dehydrogenase (LDH) (02/28/2018 8:27 AM CDT) LDH 230 (H) 125 - 220 U/L [facility] Specimen Blood Performing Organization Address [facility] Centercoin Phone Number [place] [phone] * Gamma Glutamyl Transferase (GGT) (02/28/2018 8:27 AM CDT) GGT 26 9 - 64 U/L [facility] Specimen Blood Performing Organization Address [facility] Centercoin Phone Number [address] * T Spot TB (02/28/2018 8:26 AM CDT) T-Spot TB Negative [facility] Neg Ctrl Spot Count 0 [facility] Panel A Spot 1 [facility] Panel B Spot 0 [facility] Pos Ctrl Spot Ct 0 [facility] Scan Result [facility] Specimen Blood Narrative Performed At Performing Organization Address City/[facility]/Zipcode Phone Number [facility] [address] [place] [address] LABORATORIES 100 * HIV-1 Antigen with HIV-1/2 Antibody (02/28/2018 8:26 AM CDT) HIV-1 Antigen with HIV NON-REACTIVE Nonreactive [facility] 1&2 Antibody [facility] Specimen Blood Performing Organization Address City/[facility]/Zipcode [place] [address] MEDICAL CENTER * Hepatitis C Antibody (02/28/2018 8:26 AM CDT) Hepatitis C Ab NON-REACTIVE Nonreactive [facility] Specimen Blood Performing Organization Address City/State/Zipcode Phone Number [phone] [place] [address] [facility] * Cytomegalovirus antibody, IgM (02/28/2018 8:26 AM CDT) CMV IgM Negative [facility] Specimen Blood Performing Organization Address City/[facility]/Zipcode Phone Number [phone] [place] [address] * Hepatitis B core antibody, IgM (02/28/2018 8:26 AM CDT) Hep B C IgM NON-REACTIVE Nonreactive [facility] Specimen Blood Performing Organization Address City/[facility]/Zipcode Phone Number [phone] [place] [address] * EBV-VCA antibody, IgM (02/28/2018 8:26 AM CDT) EBV VCA IgM Negative [facility] Specimen Blood Performing Organization Address City/[facility] Centercode Phone Number [phone] [place] [address] [facility] * EBV-VCA antibody, IgG (02/28/2018 8:26 AM CDT) EBV VCA IgG Positive [facility] Specimen Blood Performing Organization Address City/State/Zipcode Phone Number [phone] [place] [address] * RPR (02/28/2018 8:26 AM CDT) RPR Nonreactive Nonreactive [facility] Specimen Blood Performing Organization Address City/State/Zipcode Phone Number [phone] [place] [address] MEDICAL [facility]ENTER * Hepatitis B surface antigen (02/28/2018 8:26 AM CDT) hepatitis B Surface Ag NON-REACTIVE Nonreactive [facility] Specimen Blood Performing Organization Address City/[facility] Centercode Phone Number [address] * Cytomegalovirus antibody, IgG (02/28/2018 8:26 AM CDT) CMV IgG Positive [facility] Specimen Blood Performing Organization Address City/[facility] Centercoin Phone Number [address] * Varicella Zoster Antibody, IgG (02/28/2018 8:26 AM CDT) Varicella IgG 4.4 Al [facility] Specimen Blood Narrative Performed At VARICELLA ZOSTER RESULT INTERPRETATIONS: [facility] <=0.8 AlNonreactive:Presumed non-immune to VZV [facility] 0.9-1.0 AlEquivocal >=1.1 AlReactive:Presumed immune to VZV Performing Organization Address [facility] Centercoin Phone Number [address] * PSA (02/28/2018 8:26 AM CDT) PSA 1.6 0.0 - 4.0 ng/mL [facility] Specimen Blood Performing Organization Address City/[facility] Centercode Phone Number [phone] [place] [address] * PTH, Intact (02/28/2018 8:26 AM CDT) PTH 96.8 (H) 8.5 - 72.5 pg/mL [facility] Specimen Blood Performing Organization Address City/[facility] Centercode Phone Number [address] * HLA TYPING CII (02/28/2018 8:25 AM CDT) HLA-DR AG1 17 [facility] HLA-DR AG2 17 [facility] HLA-DR AG3-1 52 [facility] HLA-DR AG3-2 52 [facility] HLA-DR AG4-1 [facility] HLA-DR AG4-2 [facility] HLA-DR AG5-1 [facility] HLA-DR AG5-2 [facility] HLA-DQA1 AG 1-1 05 [facility] HLA-DQA1 AG 1-2 05 [facility] HLA-DQB1 AG 1-1 2 [facility] HLA-DQB1 AG 1-2 2 [facility] HLA-DPA1 AG 1-1 02 [facility] HLA-DPA1 AG 1-2 02 [facility] HLA-DPB1 AG 1-1 01:01 [facility] HLA-DPB1 AG 1-2 124:01 [facility] HLA-AG Notes [facility] HLA-AG Report Comments [facility] Specimen Blood Performing Organization Address City/[facility] Centercode Phone Number [facility] ONE [facility] [place], [place]: [id number], [place] [address] CLIA#[id number] CAP#[id number] UN[facility]#[id number] * HLA TYPING CI (02/28/2018 8:25 AM CDT) HLA-A AG1 1 [facility] HLA-A AG2 2 [facility] HLA-B AG1 8 [facility] HLA-B AG2 61 [facility] HLA-C AG1 7 [facility] HLA-C AG2 15 [facility] HLA-B BW1 6 [facility] HLA-B BW2 6 [facility] HLA-AG Notes [facility] HLA-AG Report Comments [facility] Specimen Blood Performing Organization Address City/[facility] Centercode Phone Number [facility] ONE [facility] [place], [place]: [id number], [place] [address] CLIA#[id number] CAP#[id number] [facility]#[id number] * FLOW PRA CLASS II WITH REFLEX TO ANTIBODY SPECIFICITY (02/28/2018 8:25 AM CDT) Flow Class II Percent 0 [facility] Positive Flow Class Report [facility] Comments Specimen Blood Performing Organization Address City/[facility] Centercode Phone Number [facility] ONE [facility] [place], [place]: [id number], [place] [address] CLIA#[id number] CAP#[id number] [facility]#[id number] * FLOW PRA CLASS I WITH REFLEX TO ANTIBODY SPECIFICITY (02/28/2018 8:25 AM CDT) Flow Class I Percent 0 [facility] Positive Flow Class Report [facility] Comments Specimen Blood Performing Organization Address City/[facility] Centercode Phone Number [facility] ONE [facility] [place], [place]: [id number], [place] [address] CLIA#[id number] CAP#[id number] [facility]#[id number] * Blood typing, automated (02/28/2018 8:25 AM CDT) ABO/RH AUTOMATED (BEAKER) O POSITIVE [facility] Specimen Blood Performing Organization Address [facility] Centercode Phone Number [address] * Direct AHG (SUKHDEEP)/Direct Mil (02/28/2018 8:25 AM CDT) Direct AHG-IGG NEGATIVE [facility] Direct AHG-C3B, C3D NEGATVIE [facility] Specimen Blood Performing Organization Address [facility] Centercoin Phone Number [address] * Hemoglobin A1c (02/28/2018 8:25 AM CDT) Hemoglobin A1C 6.0 4.3 - 6.1 % [facility] Specimen Blood Performing Organization Address [facility] Centercoin Phone Number [address] after 11/26/2017 Insurance Payer Benefit Subscriber ID Type Phone Address Plan / Group MEDICARE MEDICARE A xxxxxxxxxx Medicare B AETNA - MGD CARE AETNA xxxxxxxxxx Comm INDEMNITY NON CONTR Advance Directives For more information, please contact: [facility] [address] [place] [address] Date Inactivated Comments Code Status Date Activated 05/22/2018 10:36 PM Full Code 05/22/2018 11:53 AM This code status was determined by: Patient 05/04/2017 7:38 PM Full Code 05/02/2017 2:10 AM This code status was determined by: Patient
[2018-11-27] MEDS: INSULIN LISPRO 100 UNIT/1 ML 3ML VIAL SQ SCH ×2 (16:30→21:00)
--- NOTE | 2018-11-27 16:42 | NUR ---
Received patient from ER via stretcher. AAOX3 to time, person, place. Respirations even and unlabored. Denies pain. Oriented patient to room. Instructed to use call light for assistance.
--- NOTE | 2018-11-27 17:08 | NUR ---
FSBG 44 PRN Dextrose 50% given. Per environmental monitoring technician patient SB 40s-50s 1st degree block going into 2nd degree block. aware of patient's status. See orders.
--- NOTE | 2018-11-27 17:43 | NUR ---
aware of patients status. See orders. States "I will see patient tomorrow. I will reconcile medications tomorrow"
[2018-11-27] MEDS: HYDRALAZINE HCL 20 MG/ML VIAL IV PRN (17:56)
--- NOTE | 2018-11-27 17:57 | NUR ---
Insulin pump stopped and removed by nurse as ordered by Dr.Kaul. Beltran RN at bedside. Insulin pump taken home by patient's .
--- NOTE | 2018-11-27 18:04 | NUR ---
FSBG 104
--- NOTE | 2018-11-27 18:30 | NUR ---
Report given to Vikash MASON of patient's status.
--- NOTE | 2018-11-27 18:35 | NUR ---
Transferred via wheelchair by PCT to Room 193. AAOX3 to time, person, place. Respirations even and unlabored. All personal belongings taken with patient. Called patient's ,, to notify of transfer to 193, but no answer.
--- NOTE | 2018-11-27 18:45 | NUR ---
Received patient from med-surg 2 in no acute distress, pacing pads placed on patient and hooked up to the monitor.
--- NOTE | 2018-11-27 19:30 | NUR ---
Received patient in bed, vitals stable, alert and oriented, no complaints raised. Blood pressure still elevated above 170 despite hydralazine
[2018-11-27 20:34] LABS: CREATINE KINASE MB 2.2 ng/mL (0-5.0)
--- NOTE | 2018-11-27 23:00 | NUR ---
Blood glucose check at 2100hrs 105, patient remains stable, on bipap as he sleeps
[2018-11-28] VITALS (25 sets, daily range): BP systolic 128–190; BP diastolic 59–84
--- NOTE | 2018-11-28 | NUR ---
Patient with a bradycardia of less that 45bpm when asleep, asymptomatic, no complaints when aroused
--- NOTE | 2018-11-28 03:37 | NUR ---
Patient remains asleep on his BIPAP machine, SB, to a low of 38. Patient asymptomatic
[2018-11-28 04:48] LABS: BASOPHILS # (AUTO) 0.1 (0.0-0.1); BASOPHILS % 0.7 % (0.0-1.0); EOSINOPHILS # (AUTO) 0.2 (0.0-0.4); EOSINOPHILS % 2.9 % (0.0-6.0); HEMATOCRIT 29.3 % (38.2-49.6); HEMOGLOBIN 9.4 g/dL (14.0-18.0); LYMPHOCYTES # (AUTO) 1.9 (1.0-3.2); MEAN CORPUSCULAR HGB CONC 32.1 g/dL (31-35); MEAN CORPUSCULAR VOLUME 87.2 fL (81-99); MONOCYTES # (AUTO) 0.6 (0.2-0.8); MONOCYTES % 9.3 % (4.4-11.3); NEUTROPHILS # (AUTO) 4.1 (2.1-6.9); NEUTROPHILS % 59.7 % (38.7-80.0); PLATELET COUNT 150 x10e3/uL (140-360); RED BLOOD COUNT 3.36 x10e6/uL (4.3-5.7); RED CELL DISTRIBUTION WIDTH 13.5 % (11.7-14.4)
[2018-11-28 05:19] LABS: CREATINE KINASE MB 1.7 ng/mL (0-5.0)
[2018-11-28 05:39] LABS: ALBUMIN 2.7 g/dL (3.5-5.0); ALBUMIN/GLOBULIN RATIO 1.1 (0.8-2.0); ANION GAP 11.7 mmol/L (8-16); CALCIUM 8.5 mg/dL (8.4-10.2); CHOL/HDL RATIO 1.6 (3.9-4.7); CREATININE, SERUM 6.14 mg/dL (0.72-1.25); POTASSIUM 4.7 mmol/L (3.5-5.1)
--- NOTE | 2018-11-28 06:18 | Diagnostic Imaging Report ---
EXAMINATION: CHEST SINGLE (PORTABLE) INDICATION: BRADYCARDIA COMPARISON: 11/27/2018 FINDINGS: AP view TUBES and LINES: None. LUNGS: There is no evidence of pneumonia or pulmonary edema. PLEURA: No pleural effusion or pneumothorax. HEART AND MEDIASTINUM: The cardiomediastinal silhouette is unremarkable. BONES AND SOFT TISSUES: No acute osseous lesion. Soft tissues are unremarkable. UPPER ABDOMEN: No free air under the diaphragm. IMPRESSION: No acute thoracic abnormality. Signed by: DR. Elpidio Wang MD on 11/28/2018 6:15 AM
--- NOTE | 2018-11-28 06:30 | NUR ---
Orders from Dr Velasco for Echo to be done and read by Dr Mcneal
--- NOTE | 2018-11-28 07:05 | NUR ---
Patient awake handed over hemodynamically stable
--- NOTE | 2018-11-28 07:07 | History and Physical ---
PRIMARY CARE PHYSICIAN: Hedy LEATHER DRESSER: Dr. Stoddard LIFE SCIENTISTS: Dr. Hue Stearns CHIEF COMPLAINT: Low blood sugar. HISTORY OF PRESENT ILLNESS: This is a 68-year-old man with a history of diabetes mellitus, who was on an insulin pump, now found his blood sugar to be as low as 45 at home. Patient states that he was told that he was unresponsive by his . Brought to the hospital for management. Here he was found to have bradyarrhythmia, hypoglycemia, and first-degree AV block. He was admitted for further evaluation and management. PAST MEDICAL HISTORY: Diabetes mellitus with insulin pump at home, chronic kidney disease, stage 4 due to diabetes mellitus, sleep apnea, hypertension, myocardial infarction without stent, bradycardia, stroke. PAST SURGICAL HISTORY: Insulin pump, shoulder surgery bilaterally, right knee, and umbilical hernia repair times 4. ALLERGIES: PER ELECTRONIC MEDICAL RECORD. FAMILY/SOCIAL HISTORY: Patient is . No alcohol, illicits or cigarettes. MEDICATIONS: Per electronic medical record. REVIEW OF SYSTEMS: Denies any fever, chills, sweats, nausea, vomiting, diarrhea, headache, chest pain, skin rash. PHYSICAL EXAMINATION VITAL SIGNS: Have been reviewed. GENERAL: A tired-appearing man resting in bed. HEENT: Anicteric. CPAP mask in place. CARDIOVASCULAR: Normal S1 and S2. He has a slow heart rate. ABDOMEN: Soft, nontender and nondistended. EXTREMITIES: He has hyperpigmentation of the forelegs, but no edema. MUSCULOSKELETAL: He has a pacer implanted on the chest wall. SKIN: Dry. PSYCHIATRIC: Flat affect. NEUROLOGIC: He is alert and oriented times 3. Moving all extremities. LABS: Reviewed. MEDICATIONS: Reviewed. ASSESSMENT: This is a 68-year-old man with: 1. Bradyarrhythmia. 2. First-degree atrioventricular block. 3. Acute kidney injury in the setting of chronic kidney disease, stage 4. 4. Chronic kidney disease, stage 4, due to diabetes mellitus, type 2. 5. Hypertension. 6. Hypoglycemia. 7. Diabetes mellitus. 8. Severe obesity: Body mass index is 37.6 in the setting of diabetes. 9. Metabolic acidosis. PLAN 1. Monitor blood sugars. Consult endocrinology. 2. Cardiology has been consulted and permit specialist has also been consulted. 3. Will consult nephrology to manage his chronic kidney disease, stage 4. 4. Will use p.r.n. hydralazine for any blood pressure issues. 5. Avoid AV blocking agents at this time. 6. Will utilize SCD for DVT prophylaxis. 7. Will also obtain hemoglobin A1c. 8. His LDL was 18 and triglycerides 65. No treatment needed at this time for cholesterol. 9. Will monitor closely in the ICU. Critical care time more than 35 minutes. Job#: [id number] TIERNEY
--- NOTE | 2018-11-28 07:15 | NUR ---
Patient received awake, alert and Ox4. Respirations are even and unlabored. Patient was wearing his own C-Pap machine from home during the night and tolerated well. He is now on Room Air and tolerating well with O2 sats at 99%. at bedside. Denies any pain or discomfort.
[2018-11-28] MEDS: INSULIN LISPRO 100 UNIT/1 ML 3ML VIAL SQ SCH ×4 (07:30→21:30)
--- NOTE | 2018-11-28 07:34 | NUR ---
Dr. Mcneal here to see patient
--- NOTE | 2018-11-28 09:10 | Consultation ---
DATE OF CONSULTATION: November 27, 2018 CARDIOLOGY CONSULTATION REASON FOR CONSULTATION: Bradycardia. REFERRING PHYSICIAN: Dwayne Velasco MD HPI: This is a 68-year-old male that presented with low blood sugar. According to the patient and at the bedside, he was found unresponsive with a low blood sugar and was brought to the emergency room for evaluation. In the emergency room, he was found to be bradycardic with heart rate in the 40s and 50s, and cardiology was consulted. He denied any chest pain, any palpitations, any shortness of breath, any dizziness, any diaphoresis or headache. He stated he has been having bradycardia for a long time and has been doing good with it. He also has a history of CKD. He had a dialysis graft implanted last year, but it has never been used, and he has never been on dialysis. Troponin was negative. EKG showed Mobitz type 1, but he is asymptomatic. PAST MEDICAL HISTORY: CKD, diabetes, sleep apnea, hypertension, [place], bradycardia, stroke, obesity. PAST SURGICAL HISTORY: Insulin pump, dialysis graft placement, shoulder surgery, right knee surgery, and umbilical hernia repair x4. FAMILY HISTORY: Positive for hypertension. SOCIAL HISTORY: He lives at home with his . No smoking. No drinking. MEDICATIONS: See med list. ALLERGIES: HE IS NOT ALLERGIC TO ANY MEDICATION. REVIEW OF SYSTEMS: Negative except those mentioned above. He has low blood sugar and is bradycardic. PHYSICAL EXAMINATION VITAL SIGNS: Temperature 98, heart rate 49. Blood pressure 183/71, respirations 17, oxygen saturation 98% on 2 liters nasal cannula. GENERAL: He is awake, alert, and oriented x3. HEENT: Mucous membranes are moist. NECK: Supple. LUNGS: Bilateral clear to auscultation. CARDIOVASCULAR: S1 and S2 present. ABDOMEN: Soft. EXTREMITIES: No edema. NEUROLOGIC: Intact. LABS: Sodium 138, potassium 4.7, chloride 113, CO2 18. BUN 59, creatinine 6.14. Glucose 125. White blood cells 6.89, hemoglobin 9.4, hematocrit 29.3, platelets 150. PT 14.0, PTT 32.7, and INR 0.99. IMPRESSION 1. Hypoglycemia. 2. Chronic kidney disease. 3. Bradycardia. 4. Intermittent Mobitz type 1. 5. Sleep apnea. 6. Obesity. 7. Diabetes. 8. Hypertension. 9. History of myocardial infarction and stroke. ASSESSMENT AND PLAN 1. Will get an echocardiogram to assess the LV and the valve function. 2. Will avoid AV blockers. 3. He is asymptomatic. He stated he has forever had a low heart rate. 4. Will check thyroid function test. 5. Will go ahead and consult EP. 6. Renal on board. 7. Further cardiac workup pending clinical course. Thank you for this consultation. DICTATED BY: Mae Farah NP Job#: [id number]
--- NOTE | 2018-11-28 09:45 | NUR ---
Echocardiogram being done at bedside.
--- NOTE | 2018-11-28 10:54 | NUR ---
Dr. Fang called with Lab results and orders received to insert 16 English Azul Catheter.
--- NOTE | 2018-11-28 11:00 | NUR ---
16 BENGALI MUNOZ CATHETER INSERTED AND CLEAR, YELLOW URINE OF MODERATE AMOUNT OBTAINED. PATIENT TOLERATED MUNOZ INSERTION WELL.
--- NOTE | 2018-11-28 16:15 | Consultation ---
DATE OF CONSULTATION: November 28, 2018 ENDOCRINE CONSULTATION This is a patient of Dr. Velasco. Thank you very much for referring this patient. This is a 68-year-old white male gentleman who is referred to me for evaluation of diabetes mellitus and hypoglycemia. Patient reportedly is a known diabetic for almost 15 to 20 years. He is presently on insulin pump, and his basal rate is anywhere between 2.5 to 3.5 and carb ratio of 1:6. Patient has end-stage renal failure and is scheduled for dialysis soon. Patient came to the hospital because of altered mental status and low blood sugars. He also had problem with malfunction of the pump. He also has multiple other medical problems including history of hypertension, status post CVA, bradyarrhythmias and hypertension. His other routine medications include hydralazine. PHYSICAL EXAMINATION GENERAL: Today, the patient is alert, awake, a little bit apprehensive. Moderately overweight. VITALS: His heart rate is around 60. Blood pressure is 168/70. CHEST: Bilateral vesicular breathing. He has bilateral bronchospasm. CARDIAC: First and 2nd heart sounds. There is no 3rd or 4th heart sound. Ejection systolic murmur, grade 2/6. EXTREMITIES: The patient has bilateral pedal edema, particularly on the right side. The blood sugars are running between 125 to 190. CLINICAL IMPRESSION 1. Diabetes mellitus, type 2, uncontrolled with complications on insulin pump. 2. Hypoglycemia, multifactorial, probably related to chronic renal insufficiency. 3. End-stage renal failure. 4. Hypertension. 5. Status post cerebrovascular accident. 6. Roly arrhythmias. PLAN: At this time, the patient wants to get back on the pump. I decreased his insulin basal rates. Patient can go back on the pump. Will adjust the insulin dose and do a hemoglobin A1c and thyroid function test. Thanks again for referring this patient. I will be following this patient with you. Job#: [id number] ANDI
--- NOTE | 2018-11-28 16:30 | NUR ---
DR. MONTANEZ HERE TO SEE PATIENT AND SPEAK WITH HIM AND AND DAUGHTER AT BEDSIDE REGARDING NEED FOR PACEMAKER INSERTION
--- NOTE | 2018-11-28 16:40 | NUR ---
DR. HOLT HERE AT BEDSIDE AND SPEAKING TO FAMILY AND PATIENT.
[2018-11-28] MEDS: SODIUM BICARBONATE 650 MG TAB PO SCH (17:00)
[2018-11-28 17:08] LABS: % IRON SATURATION 26 % (15-50); IRON 75 ug/dL (65-175); TOTAL IRON BINDING CAPACITY 290 ug/dL (261-478); TRANSFERRIN 207 mg/dL (174-364)
[2018-11-28] MEDS ORDERED: MIDAZOLAM HCL 2 MG/2 ML VIAL ONE ×2 (17:13→18:16)
[2018-11-28] MEDS ORDERED: FENTANYL CITRATE/PF 100MCG/2 ML INJ ONE (17:14)
[2018-11-28] MEDS ORDERED: BACITRACIN 50,000 UNIT VIAL ONE (17:14)
[2018-11-28] MEDS ORDERED: LIDOCAINE HCL 2% LOCAL 20 ML VIAL ONE ×2 (17:14→18:13)
[2018-11-28] MEDS ORDERED: SODIUM CHLORIDE 0.9% 500ML 500 ML ONE (17:15)
[2018-11-28] MEDS ORDERED: VANCOMYCIN 1GM/NS 250 ML 250 ML ONE (17:15)
[2018-11-28] MEDS ORDERED: SODIUM CHLORIDE 0.9% 1000ML 2,000 ML ONE (17:15)
[2018-11-28] MEDS ORDERED: IOPAMIDOL 300MG/ML 50ML INFUS..BTL IV ONE (17:15)
--- NOTE | 2018-11-28 17:44 | Consultation ---
DATE OF CONSULTATION: November 28, 2018 RENAL CONSULTATION REASON FOR CONSULTATION: A 68-year-old gentleman well known to our nephrology service. Underlying history of advanced kidney failure CKD-4, possibly 5. Had an attempted AV fistula twice, which failed. Presented with AV block. Seen by EP physician. Plans for pacemaker noted, and I agree. Discussed with patient in great detail, present, daughter present, all questions answered. Looking at his kidney numbers, patient needs to be initiated on dialysis. At the moment I am collecting his urine for 24 hours for creatinine clearance and protein, which will be completed tomorrow morning. He is otherwise comfortable, lying supine. Denies chest pain, shortness of breath, nausea, vomiting. Labs show hemoglobin 9.4. Potassium 4.7. Bicarbonate 18. Creatinine 6.4. ALLERGIES: NO APPARENT DRUG ALLERGIES. CURRENT MEDICATIONS: The patient received some normal saline. On Humalog. He has an insulin pump, Dr. Jorge butler, and he has been having issues with low blood pressure, poor appetite, failure to thrive. PHYSICAL EXAMINATION: GENERAL: Awake, alert, lying supine, no apparent distress. VITALS: Irregular rhythm. HEAD AND NECK: Cornea clear. Oral mucosa moist. LUNGS: Relatively clear. HEART: S1, S2 audible. ABDOMEN: Otherwise soft, nontender. LOWER EXTREMITY EXAMINATION: Shows no edema. IMPRESSION: Advanced kidney failure. Will likely need to initiate dialysis. Discussed with family; they agree. Will recommend to proceed with pacemaker first from the left side and thereafter will have a tunneled dialysis catheter placed for initiation of hemodialysis. A request to IR has already been submitted. Will start p.o. bicarbonate. Job#: [id number] EV
--- NOTE | 2018-11-28 18:40 | NUR ---
Visit made by the Spiritual Care Department Pastoral Visitor, Geoff Jose. PV provided pastoral presence, hospitality, and supportive listening. Pastoral Visitor informed pt/family of the scope of [employer] Operator [employer] and availability. CINDY TURNER Drafter Landscape Spiritual Care Department O: [phone] Pager: [phone] ([phone] number calling from)
--- NOTE | 2018-11-28 19:10 | NUR ---
Report provided to Alejandrina RN, review of procedural findings and medications given. Patient drowsy, easily aroused. maintains airway and room air saturations of 94-96%. No gross issues of pressure, pain, pallor or dysrhythmia. IV site patent saline locked right AC. patient hemodynamically stable with pressure dressing to left upper chest CDI w/o s/s of bleeding. patient transferred to bed max assist. left arm placed in sling and education provided. transported ICU 193 - cgf procedure: PPM implant Left Upper Chest - [employer] Meds Given Intra-Procedure Sedatives Versed - 3 mg Fentanyl - 75 mcg Fluids Input - 150 Output - 50 Other Meds Vancomycin 1 gram
[2018-11-28] MEDS ORDERED: MORPHINE SULFATE 2 MG/ML SYR 1ML IV PRN (20:00)
--- NOTE | 2018-11-28 21:56 | Diagnostic Imaging Report ---
EXAMINATION: CHEST SINGLE (PORTABLE) INDICATION: Post PM placement COMPARISON: 11/28/2018 at 5:29 AM FINDINGS: AP view TUBES and LINES: Interval placement of left chest wall cardiac pacer with lead tips overlying the right atrium and right ventricle. LUNGS: Low lung volumes. There is no evidence of pneumonia or pulmonary edema. PLEURA: No pleural effusion or pneumothorax. HEART AND MEDIASTINUM: The cardiomediastinal silhouette is unremarkable. BONES AND SOFT TISSUES: No acute osseous lesion. Soft tissues are unremarkable. UPPER ABDOMEN: No free air under the diaphragm. IMPRESSION: Interval placement of cardiac pacer. No acute thoracic abnormalities. No pneumothorax. Signed by: DR. Elpidio Wang MD on 11/28/2018 9:53 PM
--- NOTE | 2018-11-28 22:29 | Consultation ---
DATE OF CONSULTATION: November 28, 2018 REASON FOR CONSULT: Second-degree AV block. HISTORY OF PRESENT ILLNESS: This is a 68-year-old gentleman with a history of chronic kidney disease stage 4, hypertension, history of myocardial infarction about 15 years ago. Patient has had episodes of bradycardia in the past. He is not taking any beta blockers. This time he presented after an episode of dizziness and near syncope. Initially it was thought to be secondary to hypoglycemia; however, the blood sugar has been treated and he is still feeling dizzy. He was found to be bradycardic with heart rate in the 40s and second-degree type 2 AV block. The patient states he has not had a syncope, but he felt about to pass out yesterday morning. Otherwise, no chest pain, no other complaints. REVIEW OF SYSTEMS CONSTITUTIONAL: Negative. CARDIOVASCULAR: As per HPI. RESPIRATORY: Negative. GASTROINTESTINAL: Negative. GENITOURINARY: Negative. MUSCULOSKELETAL: Negative. HEENT: Eyes negative. ENT negative. ALLERGY/IMMUNOLOGY: Negative. PSYCHIATRY: Negative. PAST MEDICAL HISTORY: Hypertension, chronic kidney disease stage 4, and history of myocardial infarction. PAST SURGICAL HISTORY: Left-sided AV fistula that did not work. FAMILY HISTORY: No premature coronary artery disease. SOCIAL HISTORY: No smoking or alcohol. PHYSICAL EXAMINATION VITAL SIGNS: Blood pressure 138/60, pulse 40, respirations 20, and O2 sat 98%. GENERAL: No acute distress. HEENT: Moist mucous membranes. CARDIOVASCULAR: Regular. RESPIRATORY: Clear. ABDOMEN: Soft and nontender. MUSCULOSKELETAL: Distal pulses 2+. NEUROLOGICAL: No focal deficit. SKIN: No lesions. PSYCHIATRIC: Normal thought process. EKG: Sinus rhythm. Second-degree type 1 AV block. Episodes of second-degree type 2 AV block. IMPRESSIONS 1. Second-degree atrioventricular block with symptoms, near syncope. No reversible causes. 2. History of myocardial infarction. 3. Chronic kidney disease, starting dialysis. RECOMMENDATIONS: Had a discussion with the patient. He has strong indication for a pacemaker. This procedure was explained in detail with benefits and risks. Patient voiced understanding and wishes to proceed. We will plan for a dual-chamber pacemaker via left side. Thank you for letting us participate in Mr. Harper's healthcare. Job#: [id number] CF
--- NOTE | 2018-11-28 22:59 | Operative Report ---
DATE OF PROCEDURE: November 28, 2018 PREPROCEDURE DIAGNOSES 1. Second-degree atrioventricular block. 2. Near syncope episode. POSTPROCEDURE DIAGNOSES 1. Second-degree atrioventricular block. 2. Near syncope episode. ESTIMATED BLOOD LOSS: 5 mL. COMPLICATIONS: None. PROCEDURES PERFORMED 1. Dual-chamber pacemaker placement. 2. Moderate sedation. Moderate conscious sedation was provided under my direct supervision by a sedation-trained nurse. Sedation approximate time 30 minutes, Versed and fentanyl. There were no complications. See sedation form for details. DESCRIPTION OF PROCEDURE: After informed consent was obtained, patient was brought to the electrophysiology laboratory in a fasting, nonsedated state. Area over his chest was prepped and draped in the usual sterile fashion. Moderate sedation and prophylactic antibiotic were given. Lidocaine 1% was used as local anesthetic, and a 3-cm skin incision was made in the left subclavicular area. Electrocautery, sharp and blunt dissection were used to reach the muscular fascia and a pocket was created for eventual implantation of the device. Vascular access was obtained x2 in the left axillary vein using modified Seldinger technique under fluoroscopic guidance. Two 6-Maltese sheaths were placed. The ventricular lead advanced to the RV apex. R-wave 12, pacing 0.4 at 0.5, impedance 650. The atrial lead was advanced to the right atrial appendage. P-wave 4, pacing 0.9 at 0.5, impedance 500. Sheaths were removed from the body. Leads were secured to fascia using 0 silk. Pocket was irrigated with antibiotic solution using a pulse retail operations specialist. Hemostasis was meticulous. Leads were connected to the device. The entire pacemaker system placed in the pocket. Incision was closed using Vicryl and Dermabond. Patient tolerated the procedure well. Procedure was deemed complete. SUMMARY OF HARDWARE IMPLANTED 1. The new pacemaker is [employer], model #L311, [id number]. 2. The atrial lead is [employer] 7740, [id number]. 3. The ventricular lead is [employer] 7741, [id number]. IMPRESSION: Successful dual-chamber pacemaker placement via left axillary vein. PLAN 1. Routine postop monitoring in telemetry bed. 2. Chest x-ray. 3. Follow up in 2 weeks. Job#: [id number]
[2018-11-29] VITALS (20 sets, daily range): BP systolic 127–189; BP diastolic 62–88
[2018-11-29 04:59] LABS: BASOPHILS % 0.6 % (0.0-1.0); EOSINOPHILS # (AUTO) 0.2 (0.0-0.4); EOSINOPHILS % 3.1 % (0.0-6.0); HEMATOCRIT 30.6 % (38.2-49.6); HEMOGLOBIN 9.8 g/dL (14.0-18.0); LYMPHOCYTES # (AUTO) 1.6 (1.0-3.2); LYMPHOCYTES % 22.6 % (18.0-39.1); MEAN CORPUSCULAR HEMOGLOBIN 28.8 pg (28-32); MONOCYTES # (AUTO) 0.8 (0.2-0.8); MONOCYTES % 11.1 % (4.4-11.3); NEUTROPHILS # (AUTO) 4.5 (2.1-6.9); NEUTROPHILS % 62.2 % (38.7-80.0); PLATELET COUNT 141 x10e3/uL (140-360); RED CELL DISTRIBUTION WIDTH 13.3 % (11.7-14.4)
[2018-11-29 05:21] LABS: ALBUMIN 2.7 g/dL (3.5-5.0); ALBUMIN/GLOBULIN RATIO 1.1 (0.8-2.0); ANION GAP 15.2 mmol/L (8-16); CALCIUM 8.5 mg/dL (8.4-10.2); CREATININE, SERUM 6.21 mg/dL (0.72-1.25); POTASSIUM 5.2 mmol/L (3.5-5.1)
--- NOTE | 2018-11-29 06:26 | NUR ---
IM-progress note O/N; no events REVIEW OF SYSTEMS: Denies any fever, chills, sweats, nausea, vomiting, diarrhea, headache, chest pain, skin rash. PHYSICAL EXAMINATION VITAL SIGNS: Have been reviewed. GENERAL: A tired-appearing man resting in bed. HEENT: Anicteric. CPAP mask in place. CARDIOVASCULAR: Normal S1 and S2. He has a slow heart rate. ABDOMEN: Soft, nontender and nondistended. EXTREMITIES: He has hyperpigmentation of the forelegs, but no edema. MUSCULOSKELETAL: ppm dressing in place/sling; on the chest wall. SKIN: Dry. PSYCHIATRIC: Flat affect. NEUROLOGIC: He is alert and oriented times 3. Moving all extremities. LABS: Reviewed. MEDICATIONS: Reviewed. ASSESSMENT: This is a 68-year-old man with: 1. Bradyarrhythmia. 2. Intermittent Mobitz I second-degree atrioventricular block. 3. Acute kidney injury in the setting of chronic kidney disease, stage 4. 4. Chronic kidney disease, stage 4, due to diabetes mellitus, type 2. 5. Hypertension. 6. Hypoglycemia. 7. Diabetes mellitus. 8. Severe obesity: Body mass index is 37.6 in the setting of diabetes. 9. Metabolic acidosis. PLAN 1. Monitor blood sugars. Consult endocrinology. 2. Cardiology has been consulted and communication specialist has also been consulted. 3. Will consult nephrology to manage his chronic kidney disease, stage 4. 4. Will use p.r.n. hydralazine for any blood pressure issues. 5. Avoid AV blocking agents at this time. 6. Will utilize SCD for DVT prophylaxis. 7. Will also obtain hemoglobin A1c. 8. His LDL was 18 and triglycerides 65. No treatment needed at this time for cholesterol. 9. Will monitor closely in the ICU. Critical care time more than 35 minutes. 11/29 S/P PPM ; HD pending; cct.35min Dwayne Velasco MD, PhD
[2018-11-29] MEDS: INSULIN LISPRO 100 UNIT/1 ML 3ML VIAL SQ SCH ×4 (07:30→22:02)
--- NOTE | 2018-11-29 07:30 | NUR ---
Patient received asleep and awakened for assessment. Alert and 0X4. RESPIRATIONS ARE EVEN AND UNLABORED. ON ROOM AIR AND O2 SATS ARE 100%. HOME CPAP AT BEDSIDE. PATIENT HAS LEFT ARM IN ARM SLING AND TOLERATING WELL DUE TO NEW PACEMAKER INSERTION DONE ON 11/28/18. DRESSING TO UPPER LEFT PACEMAKER SITE IS DRY AND INTACT. TELEMETRY SHOWS PACING AT 60 BPM. 24 HOUR URINE IN PROGRESS AND DRAINING RED COLORED URINE ON ICE.
[2018-11-29] MEDS: SODIUM BICARBONATE 650 MG TAB PO SCH ×2 (09:00→16:39)
[2018-11-29] MEDS ORDERED: MORPHINE SULFATE INJ 4 MG/ML INJ 1ML IV PRN (12:30)
--- NOTE | 2018-11-29 13:39 | NUR ---
Dr. Patel here to see patient and speak with family at bedside (including ).
[2018-11-29 14:07] LABS: CREATININE,URINE RANDOM 87.34 mg/dL (63-166)
--- NOTE | 2018-11-29 14:45 | NUR ---
CASE MANAGEMENT INITIAL ASSESSMENT Professional Programmer Analyst to bedside to discuss plan of care with patient/family. CM/SW role and care transitions discussed. Anticipated discharge plan discussed along with duration of care. CM/SW discussed patients right to make decisions in care. CM/SW work hours given. Patient lives: W IN 1STORY HOME Admit/Transfer: ER W LOW BS. 3X THIS YR. H/O TYPE II DM W INSULIN PUMP X 30YRS Hospital/ER visits since last admit: NO POA/Emergency contact: ZOHREH GONZALEZ @ [phone] / [phone] Current/Previous Home Health: NONE PCP/Follow-up Care: DR. JIMENEZ Current/Previous DME: [employer] Other Services: NONE Employment Status: RETIRED FROM [employer] Areas of Concerns: NONE Referral Needs: NONE Education Needs: NONE AT THIS TIME IMM/SUH given and signed (if applicable): SIGNED 11/29/18. COPY TO PT AND COPY TO CHART Goal for discharge: RETURN HOME SAFELY CM/SW left business card at the bedside with contact information. Name and number was also written on the patients whiteboard. Patient verbalized understanding of discussion. CM will follow-up with ongoing discharge and transition of care needs.
--- NOTE | 2018-11-29 16:14 | NUR ---
Dr. Fang here to speak with patient.
--- NOTE | 2018-11-29 16:58 | NUR ---
[facility] called to notify them of this patient needing dialysis in am per Dr. Fang and I spoke to Kelsie. I informed her of patient getting tunneled dialysis catheter in am and she said [facility] am once the catheter has been placed.
[2018-11-29] MEDS: HYDRALAZINE HCL 20 MG/ML VIAL IV PRN ×2 (17:23→23:25)
--- NOTE | 2018-11-29 17:30 | NUR ---
Hydralazine 10 mg IV given for B/P of 189/90 and tolerated well. Family and friends at bedside.
--- NOTE | 2018-11-29 18:20 | NUR ---
Report called to MARLON Castillo and patient will be moving to MS-2 to Room 211 with telemetry.
--- NOTE | 2018-11-29 18:30 | NUR ---
Telemetry Box #[id number] applied to patient and patient being transferred via Wheelchair to room 211.
[2018-11-30] VITALS (7 sets, daily range): BP systolic 141–183; BP diastolic 67–83
[2018-11-30 05:22] LABS: ALBUMIN 2.8 g/dL (3.5-5.0); ANION GAP 17.1 mmol/L (8-16); CALCIUM 8.8 mg/dL (8.4-10.2); CREATININE, SERUM 6.24 mg/dL (0.72-1.25); POTASSIUM 5.1 mmol/L (3.5-5.1)
[2018-11-30] MEDS: HYDRALAZINE HCL 20 MG/ML VIAL IV PRN ×2 (05:54→16:10)
[2018-11-30 06:18] LABS: BASOPHILS # (AUTO) 0.1 (0.0-0.1); BASOPHILS % 0.6 % (0.0-1.0); EOSINOPHILS # (AUTO) 0.3 (0.0-0.4); HEMATOCRIT 31.2 % (38.2-49.6); HEMOGLOBIN 10.3 g/dL (14.0-18.0); LYMPHOCYTES # (AUTO) 1.4 (1.0-3.2); MEAN CORPUSCULAR HEMOGLOBIN 28.8 pg (28-32); MEAN CORPUSCULAR VOLUME 87.2 fL (81-99); MONOCYTES # (AUTO) 0.9 (0.2-0.8); MONOCYTES % 11.4 % (4.4-11.3); NEUTROPHILS # (AUTO) 5.6 (2.1-6.9); NEUTROPHILS % 67.6 % (38.7-80.0); PLATELET COUNT 148 x10e3/uL (140-360); RED BLOOD COUNT 3.58 x10e6/uL (4.3-5.7); RED CELL DISTRIBUTION WIDTH 13.3 % (11.7-14.4)
--- NOTE | 2018-11-30 06:26 | NUR ---
IM-progress note O/N; no events REVIEW OF SYSTEMS: Denies any fever, chills, sweats, nausea, vomiting, diarrhea, headache, chest pain, skin rash. PHYSICAL EXAMINATION VITAL SIGNS: Have been reviewed. GENERAL: A tired-appearing man resting in bed. HEENT: Anicteric. CPAP mask in place. CARDIOVASCULAR: Normal S1 and S2. He has a slow heart rate. ABDOMEN: Soft, nontender and nondistended. EXTREMITIES: He has hyperpigmentation of the forelegs, but no edema. MUSCULOSKELETAL: ppm dressing in place/sling; on the chest wall. SKIN: Dry. PSYCHIATRIC: Flat affect. NEUROLOGIC: He is alert and oriented times 3. Moving all extremities. LABS: Reviewed. MEDICATIONS: Reviewed. ASSESSMENT: This is a 68-year-old man with: 1. Bradyarrhythmia. 2. Intermittent Mobitz I second-degree atrioventricular block. 3. Acute kidney injury in the setting of chronic kidney disease, stage 4. 4. Chronic kidney disease, stage 4, due to diabetes mellitus, type 2. 5. Hypertension. 6. Hypoglycemia. 7. Diabetes mellitus. 8. Severe obesity: Body mass index is 37.6 in the setting of diabetes. 9. Metabolic acidosis. PLAN 1. Monitor blood sugars. Consult endocrinology. 2. Cardiology has been consulted and adult health clinical nurse specialist has also been consulted. 3. Will consult nephrology to manage his chronic kidney disease, stage 4. 4. Will use p.r.n. hydralazine for any blood pressure issues. 5. Avoid AV blocking agents at this time. 6. Will utilize SCD for DVT prophylaxis. 7. Will also obtain hemoglobin A1c. 8. His LDL was 18 and triglycerides 65. No treatment needed at this time for cholesterol. 9. Will monitor closely in the ICU. Critical care time more than 35 minutes. 2 S/P PPM ; HD pending; cct.35min 11/30 renal fn unchanged; I/O 600/850; HD cath pending; Dwayne Velasco MD, PhD
[2018-11-30] MEDS: INSULIN LISPRO 100 UNIT/1 ML 3ML VIAL SQ SCH ×3 (07:30→16:53)
--- NOTE | 2018-11-30 07:32 | NUR ---
PT TRANSFERRED TO [facility]INE CHRONOMETER [facility]SEM[facility]ER AT THIS TIME FOR DIALYSIS CATHETER PLACEMENT VIA BED. SPOUSE AT BEDSIDE. AWARE OF PROCEDURE.
[2018-11-30] MEDS ORDERED: MIDAZOLAM HCL 2 MG/2 ML VIAL ONE (07:38)
[2018-11-30] MEDS ORDERED: HEPARIN SOD (PORCINE) 1000 UNIT/ML 30ML ONE (07:38)
[2018-11-30] MEDS ORDERED: FENTANYL CITRATE/PF 100MCG/2 ML INJ ONE (07:39)
[2018-11-30] MEDS ORDERED: LIDOCAINE HCL 2% LOCAL 20 ML VIAL ONE (07:39)
[2018-11-30] MEDS ORDERED: SODIUM CHLORIDE 0.9% 500ML 1,000 ML ONE (07:39)
[2018-11-30] MEDS ORDERED: SODIUM CHLORIDE 0.9% 50ML 50 ML ONE (08:04)
[2018-11-30] MEDS ORDERED: CEFAZOLIN SOD 1 GM VIAL ONE (08:05)
--- NOTE | 2018-11-30 08:33 | NUR ---
PT RETURNED FROM PEDIGREE TRACER VIA BED. DROWSY, EASY TO WAKE. VERBALIZES NO PAIN. RIGHT TUNNELED DIALYSIS CATHETER IN PLACE. CALL LIGHT PLACED WITHIN REACH. APARTMENT HOTEL MANAGER REAPPLIED. SPOUSE AT BEDSIDE. WILL CONTINUE TO MONITOR.
[2018-11-30] MEDS ORDERED: INSULIN GLARGINE 100 UNITS/ML VIAL SQ SCH (09:00)
--- NOTE | 2018-11-30 09:16 | NUR ---
CM SPOKE TO PATIENT AND PATIENT AT BEDSIDE REGARDING IMM LETTER. IMM LETTER GIVEN WITH EXPLANATION. ORIGINAL SIGNED BY . PATIENT DELEGATED DUE TO WEAKNESS POST SURGERY. ORIGINAL PLACED IN CHART; COPY OF ORIGINAL DOCUMENT GIVEN TO PATIENT AT BEDSIDE AND PLACED IN CARE TRANSITION FOLDER. CM CONTACT INFORMATION GIVEN TO PATIENT FOR ANY NEEDS OR CONCERNS. PATIENT WITH NO FURTHER QUESTIONS.
[2018-11-30] MEDS: SODIUM BICARBONATE 650 MG TAB PO SCH ×2 (09:32→16:09)
--- NOTE | 2018-11-30 10:28 | NUR ---
RECEIVED CALL FROM [facility] COORDINATOR STATES THEY WILL SEND NURSE THIS EVENING FOR DIALYSIS.
--- NOTE | 2018-11-30 15:11 | NUR ---
CALLED [facility] PER DR. HOLT REQUEST AND SPOKE TO DEEPAK WHO STATES THERE WILL BE A DIALYSIS NURSE COMING IN BETWEEN [phone] AND AN ADDITIONAL NURSE HAS ALSO BEEN CALLED IN FOR [facility] PATIENTS.
--- NOTE | 2018-11-30 15:22 | Diagnostic Imaging Report ---
PROCEDURE: PLACEMENT OF RIGHT IJ TUNNELED HEMODIALYSIS CATHETER WITH FLUOROSCOPIC GUIDANCE INDICATION: Need for dialysis access. OPERATORS: Lv Patel MD RADIATION EXPOSURE: Fluoroscopy Time: 0.5 minutes Dose area product (DAP): 159.3 cGycm2 CONSENT: The patient was informed of the nature of the proposed procedure. The purposes, alternatives, risks, and benefits were explained and discussed. All questions were answered and written consent was obtained. ANESTHESIA: Moderate sedation. Continuous hemodynamic monitoring was performing by interventional nursing MEDICATIONS: 15 cc of 1% subcutaneous lidocaine 50 mcg IV Fentanyl and 1 mg IV Versed per nursing administration records. TECHNIQUE: The patient was brought to the angiography suite, and the right neck and upper chest were prepped and draped in standard sterile fashion. All elements of maximal sterile barrier technique were followed including cap and mask, sterile gown, sterile gloves, large sterile sheet, hand hygiene and 2% chlorhexidine for cutaneous antisepsis. Pre-procedure time-out confirmed the patient identity and the procedure to be performed. Ultrasound demonstrated that the right internal jugular was patent and compressible. Using standard sterile technique, 1 % lidocaine was administered subcutaneously for local anesthesia. Under continuous sonographic guidance, the right internal jugular vein was accessed using a 21 G micropuncture needle. The access needle was exchanged for a 5 Fr micropuncture sheath. An 0.035'' Amplatz wire was advanced into the IVC to secure access. The venotomy site was dilated. Appropriate measurements were made using the 8 Fr dilator. Attention was then turned towards the subcutaneous tunnel. After administration of 1% lidocaine subcutaneously for local anesthesia, a 16 Fr x 19 cm Hemosplit hemodialysis catheter was tunneled in an antegrade direction from skin exit site to venotomy site. The dilator was exchanged for the peel-away sheath under direct fluoroscopic visualization. The catheter was then advanced through the peel-away sheath into the superior vena cava. After confirming appropriate position with fluoroscopy the catheter tip in the proximal right atrium, the peel-away sheath was removed, and both lumens aspirated, check flushed, and terminally flushed with 2 cc each of heparin solution (1000 units/cc of heparin). The catheter was secured using 3-0 Ethilon pursestring suture at the catheter exit site and also 3-0 Ethilon sutures at the catheter hub. The venotomy site was closed with subcutaneous Vicryl suture, Dermabond, and steri-strips. Sterile dressings were applied. The patient tolerated the procedure well. FINDINGS: 1. Patent and compressible right IJV accessed with continuous ultrasound guidance. 2. Placement of 16 Fr x 19 cm tunneled right IJV hemodialysis catheter. 3. Post-procedure intraprocedural chest radiograph showed the catheter tip in the proximal right atrium, no kinks along course of catheter, and no pneumothorax. Catheter is ready for use. IMPRESSION: Placement of right IJ tunneled hemodialysis catheter. Catheter is ready for immediate use. Signed by: Dr. Lv Patel MD on 11/30/2018 3:19 PM
[2018-11-30] MEDS ORDERED: SODIUM CHLORIDE 0.9% 1000ML 2,000 ML ONE (18:14)
--- NOTE | 2018-11-30 18:31 | NUR ---
DIALYSIS NURSE IN ROOM AT THIS TIME.
[2018-11-30] MEDS ORDERED: MANNITOL 25% 12.5GM/50 ML VIAL IV PRN ×2 (19:15→19:30)
[2018-11-30] MEDS ORDERED: HEPARIN SOD (PORCINE) 1000 UNIT/ML SDV IV PRN ×2 (19:30)
[2018-11-30] MEDS ORDERED: SODIUM CHLORIDE 0.9% 1000ML 2,000 ML IV PRN (19:30)
[2018-11-30] MEDS ORDERED: SODIUM CHLORIDE 0.9% 250ML 500 ML IV PRN (19:30)
[2018-12-01 01:06] VITALS: BP 180/80
[2018-12-01 05:58] VITALS: BP 174/77
[2018-12-01] MEDS: HYDRALAZINE HCL 20 MG/ML VIAL IV PRN (06:28)
--- NOTE | 2018-12-01 07:14 | NUR ---
PT RESP EVEN AND UNLABORED, NO DISTRESS NOTED, PT ABLE TO MAKE NEEDS KNOWN, STATED NO PAIN AT THIS TIME, CALL LIGHT IN REACH.
[2018-12-01] MEDS: INSULIN LISPRO 100 UNIT/1 ML 3ML VIAL SQ SCH ×3 (07:30→16:30)
--- NOTE | 2018-12-01 07:37 | NUR ---
IM-progress note O/N; no events REVIEW OF SYSTEMS: Denies any fever, chills, sweats, nausea, vomiting, diarrhea, headache, chest pain, skin rash. PHYSICAL EXAMINATION VITAL SIGNS: Have been reviewed. GENERAL: A tired-appearing man resting in bed. HEENT: Anicteric. CPAP mask in place. CARDIOVASCULAR: Normal S1 and S2. He has a slow heart rate. ABDOMEN: Soft, nontender and nondistended. EXTREMITIES: He has hyperpigmentation of the forelegs, but no edema. MUSCULOSKELETAL: ppm dressing in place/sling; on the chest wall. SKIN: Dry. PSYCHIATRIC: Flat affect. NEUROLOGIC: He is alert and oriented times 3. Moving all extremities. LABS: Reviewed. MEDICATIONS: Reviewed. ASSESSMENT: This is a 68-year-old man with: 1. Bradyarrhythmia. 2. Intermittent Mobitz I second-degree atrioventricular block. 3. Acute kidney injury in the setting of chronic kidney disease, stage 4. 4. Chronic kidney disease, stage 4, due to diabetes mellitus, type 2. 5. Hypertension. 6. Hypoglycemia. 7. Diabetes mellitus. 8. Severe obesity: Body mass index is 37.6 in the setting of diabetes. 9. Metabolic acidosis. PLAN 1. Monitor blood sugars. Consult endocrinology. 2. Cardiology has been consulted and commercial collections specialist has also been consulted. 3. Will consult nephrology to manage his chronic kidney disease, stage 4. 4. Will use p.r.n. hydralazine for any blood pressure issues. 5. Avoid AV blocking agents at this time. 6. Will utilize SCD for DVT prophylaxis. 7. Will also obtain hemoglobin A1c. 8. His LDL was 18 and triglycerides 65. No treatment needed at this time for cholesterol. 9. Will monitor closely in the ICU. Critical care time more than 35 minutes. 11/29 S/P PPM ; HD pending; cct.35min 11/30 renal fn unchanged; I/O 600/850; HD cath pending; 12/01 start BB. Dwayne Velasco MD, PhD
[2018-12-01 07:52] VITALS: BP 150/67
[2018-12-01] MEDS: SODIUM BICARBONATE 650 MG TAB PO SCH ×2 (08:35→17:23)
[2018-12-01] MEDS: INSULIN GLARGINE 100 UNITS/ML VIAL SQ SCH (08:44)
[2018-12-01 09:02] LABS: HEMATOCRIT 29.1 % (38.2-49.6); HEMOGLOBIN 9.8 g/dL (14.0-18.0); MEAN CORPUSCULAR HGB CONC 33.7 g/dL (31-35); MEAN CORPUSCULAR VOLUME 86.1 fL (81-99); PLATELET COUNT 134 x10e3/uL (140-360); RED BLOOD COUNT 3.38 x10e6/uL (4.3-5.7); RED CELL DISTRIBUTION WIDTH 13.4 % (11.7-14.4)
[2018-12-01 09:13] LABS: ANION GAP 14.3 mmol/L (8-16); CALCIUM 8.5 mg/dL (8.4-10.2); CREATININE, SERUM 5.1 mg/dL (0.72-1.25); POTASSIUM 4.3 mmol/L (3.5-5.1)
[2018-12-01 11:04] LABS: EOSINOPHILS % (MANUAL) 3 % (0-7); LYMPHOCYTES % (MANUAL) 18 % (19-48); MONOCYTES % (MANUAL) 5 % (3.4-9.0); NEUTROPHILS % (MANUAL) 74 % (40-74)
[2018-12-01 11:06] LABS: PLATELET ESTIMATE SLIGHTLY DECREASED; PLATELET MORPHOLOGY COMMENT NORMAL; RBC MORPHOLOGY COMMENT NORMAL
[2018-12-01 11:50] VITALS: BP 143/83
[2018-12-01] MEDS: METOPROLOL TARTRATE 50 MG TAB PO SCH ×3 (12:37→21:53)
[2018-12-01 16:38] VITALS: BP 143/67
--- NOTE | 2018-12-01 19:18 | NUR ---
report given to oncoming nurse, for continued care.
[2018-12-01 20:00] VITALS: BP 171/77
[2018-12-02] VITALS: BP 139/69
[2018-12-02 04:00] VITALS: BP 163/74
[2018-12-02] MEDS: METOPROLOL TARTRATE 50 MG TAB PO SCH ×3 (05:27→21:59)
--- NOTE | 2018-12-02 07:13 | NUR ---
IM-progress note O/N; no events REVIEW OF SYSTEMS: Denies any fever, chills, sweats, nausea, vomiting, diarrhea, headache, chest pain, skin rash. PHYSICAL EXAMINATION VITAL SIGNS: Have been reviewed. GENERAL: A tired-appearing man resting in bed. HEENT: Anicteric. CPAP mask in place. CARDIOVASCULAR: Normal S1 and S2. He has a slow heart rate. ABDOMEN: Soft, nontender and nondistended. EXTREMITIES: He has hyperpigmentation of the forelegs, but no edema. MUSCULOSKELETAL: ppm dressing in place/sling; on the chest wall. SKIN: Dry. PSYCHIATRIC: Flat affect. NEUROLOGIC: He is alert and oriented times 3. Moving all extremities. LABS: Reviewed. MEDICATIONS: Reviewed. ASSESSMENT: This is a 68-year-old man with: 1. Bradyarrhythmia. 2. Intermittent Mobitz I second-degree atrioventricular block. 3. Acute kidney injury in the setting of chronic kidney disease, stage 4. 4. Chronic kidney disease, stage 4, due to diabetes mellitus, type 2. 5. Hypertension. 6. Hypoglycemia. 7. Diabetes mellitus. 8. Severe obesity: Body mass index is 37.6 in the setting of diabetes. 9. Metabolic acidosis. PLAN 1. Monitor blood sugars. Consult endocrinology. 2. Cardiology has been consulted and cardiac rehabilitation specialist has also been consulted. 3. Will consult nephrology to manage his chronic kidney disease, stage 4. 4. Will use p.r.n. hydralazine for any blood pressure issues. 5. Avoid AV blocking agents at this time. 6. Will utilize SCD for DVT prophylaxis. 7. Will also obtain hemoglobin A1c. 8. His LDL was 18 and triglycerides 65. No treatment needed at this time for cholesterol. 9. Will monitor closely in the ICU. Critical care time more than 35 minutes. 11/29 S/P PPM ; HD pending; cct.35min 11/30 renal fn unchanged; I/O 600/850; HD cath pending; 12/01 start BB. 12/02 HD chair set up pending rec'd session #2 HD yesterday. Dwayne Velasco MD, PhD
--- NOTE | 2018-12-02 07:16 | NUR ---
Met with Dr. Velasco regarding this patient. Dr. Velasco questioned if pt was being set up with outpatient hemodialysis. Informed him there is no order for this, and no evidence of this in CM notes. He requested CM speak with supervisor landscape today regarding this, stating pt has received his second dialysis here.
--- NOTE | 2018-12-02 07:20 | NUR ---
PT ALERT RESP EVEN AND UNLABORED AT THIS TIME NO DISTRESS NOTED, NO C/O PAIN WHEN ASKED, MUNOZ TO GRAVITY, PT ABLE TO MAKE NEEDS KNOWN, CALL LIGHT IN REACH.
[2018-12-02] MEDS: SODIUM BICARBONATE 650 MG TAB PO SCH ×2 (08:37→17:00)
[2018-12-02 08:42] VITALS: BP 173/76
[2018-12-02] MEDS: INSULIN GLARGINE 100 UNITS/ML VIAL SQ SCH (09:00)
[2018-12-02] MEDS: INSULIN LISPRO 100 UNIT/1 ML 3ML VIAL SQ SCH ×3 (09:35→16:30)
[2018-12-02 11:45] VITALS: BP 145/77
--- NOTE | 2018-12-02 12:17 | NUR ---
Met with Dr. Fang to discuss pt dc plan. Received order for outpatient dialysis set up. He prefers [facility] if pt agrees.
--- NOTE | 2018-12-02 12:35 | NUR ---
d/c ortiz, pt DTV approximately 6 to 8 hours.
--- NOTE | 2018-12-02 14:20 | NUR ---
Visit made by the Spiritual Care Department Pastoral Visitor, Rosy Michelle. PV provided pastoral presence, prayer, communion, hospitality, and supportive listening. Pastoral Visitor informed pt/family of the scope of [employer] and availability. CINDY TURNER Speech Language Pathologist Assistant Spiritual Care Department O: [phone] Pager: [phone] ([phone] number calling from)
--- NOTE | 2018-12-02 15:00 | NUR ---
call to [facility] to have tis pt dialysis set for Monday in the am. no answer
[2018-12-02 15:59] VITALS: BP 177/83
--- NOTE | 2018-12-02 16:10 | NUR ---
pt voided 100.cc per urinal. yola colored urine.
--- NOTE | 2018-12-02 17:10 | NUR ---
call to [phone] spoke with Trina, stated will give message to nurse dispatch.
--- NOTE | 2018-12-02 19:59 | NUR ---
REPORT GIVEN TO ON COMING NURSE. FOR PT CONTINUED CARE.
[2018-12-02 20:00] VITALS: BP 194/96
--- NOTE | 2018-12-02 21:06 | NUR ---
RECEIVE DPT IN BED AOX3 .RESPIRATIONS ARE EVEN AND UNLABORED .DENIES PAIN CALL LIGHT WITH IN REACH .CONTINUE TO MONITOR
--- NOTE | 2018-12-02 21:09 | NUR ---
RECEIVED PT IN BED AOX3 .RESPIRATIONS ARE EVEN AND UNLABORED .RT CHEST TIFFANY CATHETER .PT HAS PACEMAKER RT AC 20G S/L.CALL LIGHT WITH IN REACH .CONTINUE TO MONITOR
[2018-12-03] VITALS (8 sets, daily range): BP systolic 107–194; BP diastolic 65–91
[2018-12-03] MEDS: METOPROLOL TARTRATE 50 MG TAB PO SCH ×3 (05:43→20:58)
--- NOTE | 2018-12-03 06:20 | NUR ---
IM-progress note O/N; no events REVIEW OF SYSTEMS: Denies any fever, chills, sweats, nausea, vomiting, diarrhea, headache, chest pain, skin rash. PHYSICAL EXAMINATION VITAL SIGNS: Have been reviewed. GENERAL: A tired-appearing man resting in bed. HEENT: Anicteric. CPAP mask in place. CARDIOVASCULAR: Normal S1 and S2. He has a slow heart rate. ABDOMEN: Soft, nontender and nondistended. EXTREMITIES: He has hyperpigmentation of the forelegs, but no edema. MUSCULOSKELETAL: ppm dressing in place/sling; on the chest wall. SKIN: Dry. PSYCHIATRIC: Flat affect. NEUROLOGIC: He is alert and oriented times 3. Moving all extremities. LABS: Reviewed. MEDICATIONS: Reviewed. ASSESSMENT: This is a 68-year-old man with: 1. Bradyarrhythmia. 2. Intermittent Mobitz I second-degree atrioventricular block. 3. Acute kidney injury in the setting of chronic kidney disease, stage 4. 4. Chronic kidney disease, stage 4, due to diabetes mellitus, type 2. 5. Hypertension. 6. Hypoglycemia. 7. Diabetes mellitus. 8. Severe obesity: Body mass index is 37.6 in the setting of diabetes. 9. Metabolic acidosis. PLAN 1. Monitor blood sugars. Consult endocrinology. 2. Cardiology has been consulted and telecom specialist has also been consulted. 3. Will consult nephrology to manage his chronic kidney disease, stage 4. 4. Will use p.r.n. hydralazine for any blood pressure issues. 5. Avoid AV blocking agents at this time. 6. Will utilize SCD for DVT prophylaxis. 7. Will also obtain hemoglobin A1c. 8. His LDL was 18 and triglycerides 65. No treatment needed at this time for cholesterol. 9. Will monitor closely in the ICU. Critical care time more than 35 minutes. 11/29 S/P PPM ; HD pending; cct.35min 11/30 renal fn unchanged; I/O 600/850; HD cath pending; 12/01 start BB. 12/02 HD chair set up pending rec'd session #2 HD yesterday. 12/03 HD chair pending; Had BM. Dwayne Velasco MD, PhD
--- NOTE | 2018-12-03 06:33 | NUR ---
PT RESTING .DENIES PAIN NO ACUTE DISTRESS NOTED .CALL LIGHT WITH IN REACH .CONTINUE TO MONITOR
[2018-12-03] MEDS: INSULIN LISPRO 100 UNIT/1 ML 3ML VIAL SQ SCH ×4 (07:30→20:57)
[2018-12-03] MEDS: INSULIN GLARGINE 100 UNITS/ML VIAL SQ SCH (09:00)
[2018-12-03] MEDS: SODIUM BICARBONATE 650 MG TAB PO SCH ×2 (09:00→17:08)
--- NOTE | 2018-12-03 09:00 | NUR ---
CM SPOKE TO PATIENT AND PATIENT AT BEDSIDE REGARDING IMM LETTER. IMM LETTER GIVEN WITH EXPLANATION BASED ON ANTICIPATED DISCHARGE DATE WITHIN 48 HOURS. ORIGINAL SIGNED BY . PATIENT DELEGATED DUE TO WEAKNESS. ORIGINAL PLACED IN CHART; COPY OF ORIGINAL DOCUMENT GIVEN TO PATIENT AT BEDSIDE AND PLACED IN CARE TRANSITION FOLDER. CM CONTACT INFORMATION GIVEN TO PATIENT FOR ANY NEEDS OR CONCERNS. PATIENT WITH NO FURTHER QUESTIONS.
[2018-12-03] MEDS ORDERED: LIDOCAINE HCL 2% LOCAL 20 ML VIAL ONE (12:05)
[2018-12-03] MEDS ORDERED: MIDAZOLAM HCL 2 MG/2 ML VIAL ONE (12:05)
[2018-12-03] MEDS ORDERED: FENTANYL CITRATE/PF 100MCG/2 ML INJ ONE (12:05)
[2018-12-03] MEDS ORDERED: IOPAMIDOL 370 MG/ML 200 ML INFUS..BTL INJ ONE (12:06)
[2018-12-03] MEDS ORDERED: SODIUM CHLORIDE 0.9% 1000ML 0 ML ONE (12:06)
[2018-12-03] MEDS ORDERED: HEPARIN SOD/SOD CHLORIDE 0 ML ONE (12:06)
--- NOTE | 2018-12-03 17:05 | NUR ---
Nutrition Screen Note RD Recommendation for Physician: -Continue renal ADA diet as ordered -RD provided diet education for ESRD on 12/03. Plan of Care: RD following, monitoring for tolerance and adequacy, education Nutrition reason for involvement: Diagnosis, New ESRD on HD Primary Diagnose(s): 1. Bradyarrhythmia. 2. Intermittent Mobitz I second-degree atrioventricular block. 3. New ESRD on HD PMH: Diabetes mellitus with insulin pump at home, chronic kidney disease, stage 4 due to diabetes mellitus, sleep apnea, hypertension, myocardial infarction without stent, bradycardia, stroke. Ht: 67in Wt: 246.94lb BMI: 38.7kg/m2 IBW: 148lb RD Assessment: (12/03) Chart reviewed. 68yo M, who was admitted for low blood sugar. No labs since 12/01. Newly diagnosed with ESRD. HD chair pending. HD was scheduled for today. Visited pt in the room. Pt reported good appetite with 75% recorded meal intake. No GI complains noted. Pt denied any chewing or swallowing difficulty. No recent weight loss reported. RD provided education on renal diet. Will continue to monitor and follow. Please consult as needed. Current Diet: renal diabetic diet Malnutrition Evaluation (12/03/2018) The patient does not meet criteria for a specified degree of malnutrition at this time. Will re-evaluate at follow-up as appropriate. Diet Education Needs Assessment: Diet education indicated, pt and were agreeable with plan. Learner(s): pt, Time spent: 20minutes Barriers: none Cultural/Language Modifications: No cultural/language modifications noted. Readiness: acceptance Method: explanation/ discussion, handout Topics: Renal diet, phosphorus, sodium, potassium, fluids Understanding/Compliance: good compliance expected, needs reinforcement , all questions have been answered. Nutrition Care Level: low Signed: Yeimi Dickerson, , RD, LD
--- NOTE | 2018-12-03 19:28 | NUR ---
per dialysis nurse 2.6L removed.
--- NOTE | 2018-12-03 19:48 | NUR ---
RECEIVED PT SITTING ON THE CHAIR AOX3 .DENIES PAIN .NO ACUTE DISTRESS NOTED . PT HAS DIALYSIS TODAY REMOVED 2.6 L OF FLUID .CALL LIGHT WITH IN REACH.CONTINUE TO MONITOR
[2018-12-04] VITALS (7 sets, daily range): BP systolic 135–182; BP diastolic 65–81
--- NOTE | 2018-12-04 06:54 | NUR ---
IM-progress note O/N; no events REVIEW OF SYSTEMS: Denies any fever, chills, sweats, nausea, vomiting, diarrhea, headache, chest pain, skin rash. PHYSICAL EXAMINATION VITAL SIGNS: Have been reviewed. GENERAL: A tired-appearing man resting in bed. HEENT: Anicteric. CPAP mask in place. CARDIOVASCULAR: Normal S1 and S2. He has a slow heart rate. ABDOMEN: Soft, nontender and nondistended. EXTREMITIES: He has hyperpigmentation of the forelegs, but no edema. MUSCULOSKELETAL: ppm dressing in place/sling; on the chest wall. SKIN: Dry. PSYCHIATRIC: Flat affect. NEUROLOGIC: He is alert and oriented times 3. Moving all extremities. LABS: Reviewed. MEDICATIONS: Reviewed. ASSESSMENT: This is a 68-year-old man with: 1. Bradyarrhythmia. 2. Intermittent Mobitz I second-degree atrioventricular block. 3. Acute kidney injury in the setting of chronic kidney disease, stage 4. 4. Chronic kidney disease, stage 4, due to diabetes mellitus, type 2. 5. Hypertension. 6. Hypoglycemia. 7. Diabetes mellitus. 8. Severe obesity: Body mass index is 37.6 in the setting of diabetes. 9. Metabolic acidosis. PLAN 1. Monitor blood sugars. Consult endocrinology. 2. Cardiology has been consulted and integrated marketing specialist has also been consulted. 3. Will consult nephrology to manage his chronic kidney disease, stage 4. 4. Will use p.r.n. hydralazine for any blood pressure issues. 5. Avoid AV blocking agents at this time. 6. Will utilize SCD for DVT prophylaxis. 7. Will also obtain hemoglobin A1c. 8. His LDL was 18 and triglycerides 65. No treatment needed at this time for cholesterol. 9. Will monitor closely in the ICU. Critical care time more than 35 minutes. 11/29 S/P PPM ; HD pending; cct.35min 11/30 renal fn unchanged; I/O 600/850; HD cath pending; 12/01 start BB. 12/02 HD chair set up pending rec'd session #2 HD yesterday. 12/03 HD chair pending; Had BM. 12/04 d/c planning Dwayne Velasco MD, PhD
--- NOTE | 2018-12-04 07:14 | NUR ---
PT RESP EVEN AND UNLABORED, NO DISTRESS NOTED, PT SITTING UPRIGHT IN BED, PT ABLE TO MAKE NEEDS KNOWN, STATED NO PAIN AT THIS TIME, CALL LIGHT IN REACH.
[2018-12-04] MEDS: METOPROLOL TARTRATE 50 MG TAB PO SCH ×3 (07:25→20:52)
--- NOTE | 2018-12-04 07:29 | NUR ---
PT RESTED DURING THE NIGHT .NO ACUTE DISTRESS NOTED .REPORT GIVEN TO THE ONCOMING NURSE
[2018-12-04] MEDS: INSULIN LISPRO 100 UNIT/1 ML 3ML VIAL SQ SCH ×7 (07:30→21:00)
[2018-12-04] MEDS: INSULIN GLARGINE 100 UNITS/ML VIAL SQ SCH (09:00)
[2018-12-04] MEDS: SODIUM BICARBONATE 650 MG TAB PO SCH ×2 (09:05→17:30)
--- NOTE | 2018-12-04 12:36 | NUR ---
SPOKE WITH PATIENT ABOUT DIALYSIS CHAIRS LOCATIONS TIME AND DELIVERY. PT AND STATE THEY LIVE IN [place] AND THE [facility] IS RIGHT AROUND THE CORNER FROM THEIR HOME AND WOULD LIKE TO GO THERE. PT STATES HE WOULD PREFER , AND MONDAY SCHEDULE AT 10 AM TIME SLOT IF AVAILABLE. FILED CHOICE IN CHART AND FAXED EVERYTHING TO THE ADMISSION LINE FOR [facility] [phone].
--- NOTE | 2018-12-04 19:35 | NUR ---
REPORT GIVEN TO ONCOMING NURSE.
--- NOTE | 2018-12-04 19:42 | NUR ---
RECEIVED REPORT FROM 7AM NURSE, PATIENT RESTING IN BED WATCHING TV, NO DISTRESS NOTED. CALL LIGHT IN REACH. WILL CONTINUE TO MONITOR.
[2018-12-05] VITALS (9 sets, daily range): BP systolic 120–166; BP diastolic 64–82
[2018-12-05] MEDS: METOPROLOL TARTRATE 50 MG TAB PO SCH ×3 (06:04→21:46)
--- NOTE | 2018-12-05 06:15 | NUR ---
IM-progress note O/N; no events REVIEW OF SYSTEMS: Denies any fever, chills, sweats, nausea, vomiting, diarrhea, headache, chest pain, skin rash. PHYSICAL EXAMINATION VITAL SIGNS: Have been reviewed. GENERAL: A tired-appearing man resting in bed. HEENT: Anicteric. CPAP mask in place. CARDIOVASCULAR: Normal S1 and S2. He has a slow heart rate. ABDOMEN: Soft, nontender and nondistended. EXTREMITIES: He has hyperpigmentation of the forelegs, but no edema. MUSCULOSKELETAL: ppm dressing in place/sling; on the chest wall. SKIN: Dry. PSYCHIATRIC: Flat affect. NEUROLOGIC: He is alert and oriented times 3. Moving all extremities. LABS: Reviewed. MEDICATIONS: Reviewed. ASSESSMENT: This is a 68-year-old man with: 1. Bradyarrhythmia. 2. Intermittent Mobitz I second-degree atrioventricular block. 3. Acute kidney injury in the setting of chronic kidney disease, stage 4. 4. Chronic kidney disease, stage 4, due to diabetes mellitus, type 2. 5. Hypertension. 6. Hypoglycemia. 7. Diabetes mellitus. 8. Severe obesity: Body mass index is 37.6 in the setting of diabetes. 9. Metabolic acidosis. PLAN 1. Monitor blood sugars. Consult endocrinology. 2. Cardiology has been consulted and medical billing and coding specialist has also been consulted. 3. Will consult nephrology to manage his chronic kidney disease, stage 4. 4. Will use p.r.n. hydralazine for any blood pressure issues. 5. Avoid AV blocking agents at this time. 6. Will utilize SCD for DVT prophylaxis. 7. Will also obtain hemoglobin A1c. 8. His LDL was 18 and triglycerides 65. No treatment needed at this time for cholesterol. 9. Will monitor closely in the ICU. Critical care time more than 35 minutes. s/p PPM; HD initiated; chairtime outpt pending; check labs Dwayne Velasco MD, PhD
--- NOTE | 2018-12-05 07:15 | NUR ---
pt alert no distress noted at this time, pt states no c/o pain when asked, pt able to make needs known, call light in reach
--- NOTE | 2018-12-05 07:25 | NUR ---
PATIENT RESTING IN BED, ROUNDS DONE WITH 7AM ONCOMING NURSE. TO START DIALYSIS. PATIENT VOICED NO COMPLAINTS.
[2018-12-05] MEDS: INSULIN LISPRO 100 UNIT/1 ML 3ML VIAL SQ SCH ×7 (07:30→21:48)
[2018-12-05 07:56] LABS: BASOPHILS # (AUTO) 0.1 (0.0-0.1); BASOPHILS % 0.8 % (0.0-1.0); EOSINOPHILS # (AUTO) 0.3 (0.0-0.4); HEMOGLOBIN 10.5 g/dL (14.0-18.0); LYMPHOCYTES # (AUTO) 1.6 (1.0-3.2); LYMPHOCYTES % 20.5 % (18.0-39.1); MEAN CORPUSCULAR HEMOGLOBIN 28.9 pg (28-32); MEAN CORPUSCULAR HGB CONC 33.9 g/dL (31-35); MEAN CORPUSCULAR VOLUME 85.4 fL (81-99); MONOCYTES # (AUTO) 0.9 (0.2-0.8); NEUTROPHILS # (AUTO) 4.9 (2.1-6.9); NEUTROPHILS % 62.4 % (38.7-80.0); PLATELET COUNT 151 x10e3/uL (140-360); RED BLOOD COUNT 3.63 x10e6/uL (4.3-5.7); RED CELL DISTRIBUTION WIDTH 12.9 % (11.7-14.4)
[2018-12-05 08:04] LABS: CALCIUM 8.9 mg/dL (8.4-10.2); CREATININE, SERUM 4.95 mg/dL (0.72-1.25)
--- NOTE | 2018-12-05 08:15 | NUR ---
pt dialysis treatment started, pt tolerating well.
[2018-12-05] MEDS: SODIUM BICARBONATE 650 MG TAB PO SCH ×2 (08:55→17:00)
[2018-12-05] MEDS: INSULIN GLARGINE 100 UNITS/ML VIAL SQ SCH (09:00)
--- NOTE | 2018-12-05 09:30 | NUR ---
CM SPOKE TO PATIENT AND PATIENT AT BEDSIDE REGARDING IMM LETTER. IMM LETTER GIVEN WITH EXPLANATION BASED ON ANTICIPATED DISCHARGE DATE WITHIN 48 HOURS. ORIGINAL SIGNED; COPY OF ORIGINAL PLACED IN CHART; COPY OF ORIGINAL DOCUMENT GIVEN TO PATIENT AT BEDSIDE AND PLACED IN CARE TRANSITION FOLDER. CM CONTACT INFORMATION GIVEN TO PATIENT FOR ANY NEEDS OR CONCERNS. PATIENT WITH NO FURTHER QUESTIONS.
--- NOTE | 2018-12-05 12:29 | NUR ---
pt dialysis treatment finished. 1.9 liters off pt tolerated well.
--- NOTE | 2018-12-05 19:07 | NUR ---
Completed bedside rounds with morning nurse. Pt alert and orient to name. Lying in bed HOB 45 degrees. Denies pain or discomfort. No acute distress noted. Call masterson within reach. Will continue to monitor.
--- NOTE | 2018-12-05 20:01 | NUR ---
report given to oncoming nurse . for continued care.
[2018-12-06 01:16] VITALS: BP 135/70
[2018-12-06 06:19] VITALS: BP 138/69
[2018-12-06] MEDS: INSULIN LISPRO 100 UNIT/1 ML 3ML VIAL SQ SCH ×2 (07:30)
[2018-12-06 07:40] VITALS: BP 180/83
[2018-12-06 08:29] VITALS: BP 180/83
[2018-12-06] MEDS: SODIUM BICARBONATE 650 MG TAB PO SCH (08:32)
[2018-12-06] MEDS: METOPROLOL TARTRATE 50 MG TAB PO SCH (08:38)
[2018-12-06] MEDS: INSULIN GLARGINE 100 UNITS/ML VIAL SQ SCH (08:59)
--- NOTE | 2018-12-06 10:42 | NUR ---
GAVE LETTER CHAIR WILL BE T, TH AND SAT AT 1130. HE NEEDS TO BE THERE TODAY BEFORE 1 TO GET TREATMENT, TO BE ABLE TO START BY MONDAY. NURSE MADE AWARE THAT DISCHARGE NEEDS TO HAPPEN TO ACCOMPLISH THIS.
--- NOTE | 2018-12-06 11:34 | NUR ---
Dr fonseca notified of pt appt to Dialysis chair at 1300. PT FAMILY MEMBER NEED SLIDING SCALE.
[2018-12-06 12:22] VITALS: BP 144/81
--- NOTE | 2018-12-06 13:00 | NUR ---
pt discharged home with prescriptions. pt and family member were educated on medications, pt iv site removed, no swelling no redness to site. and was informed to follow up with painter and body mechanic apprentice, and pcp and renal doctors, and dr. Patel
== END 2018-12-06 12:10 | disposition home or self-care (01) | DRG 242 ==
LOC: ER 10:42 → ERHOLD 15:24 → MED/SURG2 16:43 → ICU 18:33 → OBSVTOIN 11-28 11:53 → MED/SURG2 11-29 18:52
PROVIDERS: ADMIT Internal Medicine; ATTEND Internal Medicine
PROC: 0JH606Z Insertion of Pacemaker, Dual Chamber into Chest Subcutaneous Tissue and Fascia, Open Approach (ICD-10-PCS; principal; 2018-11-28)
PROC: 02H63JZ Insertion of Pacemaker Lead into Right Atrium, Percutaneous Approach (ICD-10-PCS; 2018-11-28)
PROC: 02HK3JZ Insertion of Pacemaker Lead into Right Ventricle, Percutaneous Approach (ICD-10-PCS; 2018-11-28)
PROC: 02HV33Z Insertion of Infusion Device into Superior Vena Cava, Percutaneous Approach (ICD-10-PCS; 2018-11-28)
PROC: 0JH63XZ Insertion of Tunneled Vascular Access Device into Chest Subcutaneous Tissue and Fascia, Percutaneous Approach (ICD-10-PCS; 2018-11-30)
PROC: 5A1D70Z Performance of Urinary Filtration, Intermittent, Less than 6 Hours Per Day (ICD-10-PCS; 2018-11-30)
PROC: 5A1D70Z Performance of Urinary Filtration, Intermittent, Less than 6 Hours Per Day (ICD-10-PCS; 2018-12-01)
PROC: 5A1D70Z Performance of Urinary Filtration, Intermittent, Less than 6 Hours Per Day (ICD-10-PCS; 2018-12-03)
DX: I44.1 Atrioventricular block, second degree (principal); N18.6 End stage renal disease; N17.9 Acute kidney failure, unspecified; I12.0 Hypertensive chronic kidney disease with stage 5 chronic kidney disease or end stage renal disease; E87.2 Acidosis; E11.22 Type 2 diabetes mellitus with diabetic chronic kidney disease; Z79.4 Long term (current) use of insulin; Z96.41 Presence of insulin pump (external) (internal); Z99.2 Dependence on renal dialysis; E11.649 Type 2 diabetes mellitus with hypoglycemia without coma; E66.01 Morbid (severe) obesity due to excess calories; Z68.36 Body mass index [BMI] 36.0-36.9, adult; I25.2 Old myocardial infarction; Z86.73 Personal history of transient ischemic attack (TIA), and cerebral infarction without residual deficits; I49.8 Other specified cardiac arrhythmias; D63.1 Anemia in chronic kidney disease; G47.30 Sleep apnea, unspecified
CPT/HCPCS: 33208; 36415; 36558; 71045; 74470; 80048; 80053; 80061; 81001; 82550; 82553; 82575; 82728; 82948; 83036; 83540; 83880; 84443; 84466; 84484; 85007; 85025; 85027; 85610; 85730; 86704; 86706; 87086; 87340; 87350; 90962; 93005; 93306; 96372; 99284; C1750; C1769; C1785; C1898; G0378; J0360; J0690; J1644; J1815; J2001; J2150; J2250; J2270; J3370; J7030; J7040; J7799; Q9967

== ENCOUNTER 2021-08-19 17:20 | Emergency (ER) | payer MEDICARE, OTHER ==
[~2021-08-19] VITALS: Ht 322.6 cm; Wt 105.2 kg
[~2021-08-19 17:20] MED LIST changes: +HUMALOG; +SODIUM BICARBO650 MG PO; +TAMSULOSIN HCL0.4 MG PO; +VITAMIN D250000 UNIT PO
[2021-08-19 19:28] VITALS: BP 138/59
== END 2021-08-19 19:32 | disposition home or self-care (01) ==
LOC: ER 18:23
DX: S00.83XA Contusion of other part of head, initial encounter (principal); W01.0XXA Fall on same level from slipping, tripping and stumbling without subsequent striking against object, initial encounter; Y92.008 Other place in unspecified non-institutional (private) residence as the place of occurrence of the external cause; I12.0 Hypertensive chronic kidney disease with stage 5 chronic kidney disease or end stage renal disease; E11.22 Type 2 diabetes mellitus with diabetic chronic kidney disease; N18.6 End stage renal disease; Z99.2 Dependence on renal dialysis; I25.2 Old myocardial infarction; Z86.73 Personal history of transient ischemic attack (TIA), and cerebral infarction without residual deficits
CPT/HCPCS: 70450; 72125; 99283

== ENCOUNTER 2022-02-06 10:13 | Inpatient (IN) | payer MEDICARE ==
[~2022-02-06] VITALS: Ht 167.6 cm; Wt 101.3 kg
[2022-02-06] MEDS: ACETAMINOPHEN 325 MG TAB PO PRN (00:30)
[~2022-02-06 10:13] MED LIST changes: -HUMALOG; +HUMALOG SQ
[2022-02-06 10:37] LABS: BASOPHILS % 0.2 % (0.0-1.0); HEMOGLOBIN 11.7 g/dL (14.0-18.0); LYMPHOCYTES # (AUTO) 0.4 (1.0-3.2); LYMPHOCYTES % 3.7 % (18.0-39.1); MEAN CORPUSCULAR HEMOGLOBIN 31.5 pg (28-32); MEAN CORPUSCULAR HGB CONC 31.6 g/dL (31-35); MEAN CORPUSCULAR VOLUME 99.7 fL (81-99); MONOCYTES # (AUTO) 0.9 (0.2-0.8); MONOCYTES % 8.5 % (4.4-11.3); NEUTROPHILS # (AUTO) 9.4 (2.1-6.9); NEUTROPHILS % 87.1 % (38.7-80.0); PLATELET COUNT 107 x10e3/uL (140-360); RED BLOOD COUNT 3.71 x10e6/uL (4.3-5.7); RED CELL DISTRIBUTION WIDTH 15.6 % (11.7-14.4)
[2022-02-06 10:54] LABS: ALBUMIN 3.5 g/dL (3.5-5.0); ALBUMIN/GLOBULIN RATIO 0.8 (0.8-2.0); ANION GAP 21.6 mmol/L (8-16); CALCIUM 8.8 mg/dL (8.4-10.2); CREATININE, SERUM 6.62 mg/dL (0.72-1.25); POTASSIUM 4.6 mmol/L (3.5-5.1)
[2022-02-06 11:00] LABS: CREATINE KINASE MB 1.3 ng/mL (0-5.0)
[2022-02-06] MEDS ORDERED: ACETAMINOPHEN 325 MG TAB PO ONE (11:00)
[2022-02-06 11:29] LABS: B-TYPE NATRIURETIC PEPTIDE2 970.9 pg/mL (0-100)
[2022-02-06 11:57] LABS: CLARITY,URINE CLOUDY (CLEAR); COLOR,URINE AMBER (YELLOW); KETONES,URINE TRACE (NEGATIVE); LEUKOCYTE ESTERASE ,URINE TRACE (NEGATIVE); NITRITE,URINE NEGATIVE (NEGATIVE); PROTEIN,URINE DIPSTICK >=300 (NEGATIVE); URINE UROBILINOGEN 0.2 mg/dL (0.2 - 1)
[2022-02-06 12:00] LABS: BACTERIA,URINE FEW /HPF; EPITHELIAL CELLS,URINE MODERATE /LPF; RBC,URINE 21-50 /HPF (0-5)
[2022-02-06] MEDS ORDERED: Vancomycin IV 1 GM in SODIUM CHLORIDE 0.9% 250ML 250 ML IV ONE (12:00)
[2022-02-06] MEDS ORDERED: SODIUM CHLORIDE 0.9% 250ML 250 ML IV ONE (12:15)
[2022-02-06] MEDS ORDERED: IBUPROFEN 800MG/ 200ML 200 ML IV STA (13:59)
[2022-02-06] MEDS ORDERED: ONDANSETRON HCL INJ 2MG/ML 2ML 2 MG/ML VIAL IV PRN (14:00)
[2022-02-06] MEDS ORDERED: humalog SQ (15:23)
[2022-02-06] MEDS ORDERED: LISINOPRIL2.5 MG PO (15:26)
[2022-02-06] MEDS ORDERED: CLOPIDOGREL75 MG PO (15:26)
[2022-02-06] MEDS ORDERED: SEVELAMER CARB800 MG PO (15:26)
[2022-02-06] MEDS ORDERED: ROSUVASTATIN CA10 MG PO (15:26)
[2022-02-06] MEDS ORDERED: METOPROLOL SUCC25 MG PO (15:26)
[2022-02-06 15:29] VITALS: BP 110/59
[2022-02-06 15:33] VITALS: BP 110/59
[2022-02-06] MEDS ORDERED: ULTRAM 50MG50 MG PO (16:15)
[2022-02-06] MEDS ORDERED: melatonin PO (16:15)
[2022-02-06] MEDS ORDERED: MOBIC7.5 MG PO (16:15)
[2022-02-06] MEDS ORDERED: CYCLOBENZAPRINE10 MG PO (16:15)
[2022-02-06] MEDS ORDERED: ETHYL CHLORI103.5 ML TOP (16:15)
[2022-02-06] MEDS ORDERED: emla cream TOP (16:15)
[2022-02-06 16:36] VITALS: BP 110/58
[2022-02-06 19:09] LABS: CREATINE KINASE MB 1.9 ng/mL (0-5.0)
[2022-02-06 19:59] VITALS: BP 110/58
[2022-02-06 20:13] VITALS: BP 107/61
[2022-02-06] MEDS ORDERED: DEXTROSE 50% SYRINGE 50 ML IV PRN (21:15)
[2022-02-06] MEDS ORDERED: HYDRALAZINE HCL 20 MG/ML VIAL IV PRN (21:30)
[2022-02-06] MEDS ORDERED: CYCLOBENZAPRINE HCL 10 MG TAB PO PRN (21:45)
[2022-02-06] MEDS ORDERED: TRAMADOL HCL 50 MG TAB PO PRN (23:15)
[2022-02-06] MEDS ORDERED: ULTRAM50 MG PO (23:48)
[2022-02-07] VITALS (7 sets, daily range): BP systolic 110–127; BP diastolic 49–60
[2022-02-07 02:03] LABS: ALBUMIN 2.9 g/dL (3.5-5.0); ALBUMIN/GLOBULIN RATIO 0.8 (0.8-2.0); ANION GAP 18.8 mmol/L (8-16); CREATININE, SERUM 7.68 mg/dL (0.72-1.25); POTASSIUM 4.8 mmol/L (3.5-5.1)
[2022-02-07 02:11] LABS: CREATINE KINASE MB 2.1 ng/mL (0-5.0)
[2022-02-07 06:08] LABS: BASOPHILS % 0.4 % (0.0-1.0); EOSINOPHILS % 0.1 % (0.0-6.0); HEMATOCRIT 32.7 % (38.2-49.6); HEMOGLOBIN 10.7 g/dL (14.0-18.0); LYMPHOCYTES # (AUTO) 0.6 (1.0-3.2); LYMPHOCYTES % 9.1 % (18.0-39.1); MEAN CORPUSCULAR HEMOGLOBIN 32.1 pg (28-32); MEAN CORPUSCULAR HGB CONC 32.7 g/dL (31-35); MEAN CORPUSCULAR VOLUME 98.2 fL (81-99); MONOCYTES # (AUTO) 0.7 (0.2-0.8); MONOCYTES % 10.6 % (4.4-11.3); NEUTROPHILS # (AUTO) 5.5 (2.1-6.9); NEUTROPHILS % 79.5 % (38.7-80.0); RED BLOOD COUNT 3.33 x10e6/uL (4.3-5.7); RED CELL DISTRIBUTION WIDTH 15.9 % (11.7-14.4)
[2022-02-07 06:09] LABS: PLATELET COUNT 96 x10e3/uL (140-360)
[2022-02-07 06:24] LABS: ALBUMIN 2.8 g/dL (3.5-5.0); ALBUMIN/GLOBULIN RATIO 0.8 (0.8-2.0); ANION GAP 15.3 mmol/L (8-16); CALCIUM 8.4 mg/dL (8.4-10.2); CREATININE, SERUM 8.09 mg/dL (0.72-1.25); POTASSIUM 4.3 mmol/L (3.5-5.1)
[2022-02-07] MEDS: INSULIN REGULAR, HUMAN 100 UNIT/1 ML SQ SCH ×4 (07:30→21:00)
[2022-02-07] MEDS ORDERED: FAMOTIDINE 20 MG TAB PO SCH (07:30)
[2022-02-07] MEDS ORDERED: Vancomycin IV 1 GM in SODIUM CHLORIDE 0.9% 250ML 250 ML IV SCH (08:00)
[2022-02-07] MEDS: SEVELAMER CARBONATE 800 MG TAB PO SCH ×3 (08:30→15:42)
[2022-02-07] MEDS: SUCRALFATE 1 GM TAB PO SCH ×3 (08:30→15:42)
[2022-02-07] MEDS: ASPIRIN 81 MG CHEW TAB PO SCH (08:38)
[2022-02-07] MEDS: CYCLOBENZAPRINE HCL 10 MG TAB PO SCH ×2 (08:38→16:12)
[2022-02-07] MEDS: HEPARIN SOD (PORCINE) 5,000 UNIT/ML VIAL SC SCH ×2 (08:38→21:00)
[2022-02-07] MEDS: TAMSULOSIN HCL 0.4 MG CAP PO SCH (08:39)
[2022-02-07] MEDS: CLOPIDOGREL BISULFATE 75 MG TAB PO SCH (08:39)
[2022-02-07] MEDS: METOPROLOL SUCCINATE 25 MG TAB XL PO SCH (08:40)
[2022-02-07] MEDS ORDERED: SODIUM CHLORIDE 0.9% 250ML 250 ML ONE (08:57)
[2022-02-07] MEDS ORDERED: METOPROLOL SUCCINATE 25 MG TAB XL PO SCH (09:00)
[2022-02-07] MEDS ORDERED: LISINOPRIL 2.5 MG TAB PO SCH (09:00)
[2022-02-07] MEDS ORDERED: TRAMADOL HCL 50 MG TAB PO PRN ×2 (09:00)
[2022-02-07] MEDS ORDERED: CLOPIDOGREL BISULFATE 75 MG TAB PO SCH (09:00)
[2022-02-07] MEDS ORDERED: MELOXICAM 7.5 MG TAB PO SCH ×2 (09:00)
[2022-02-07] MEDS ORDERED: VALSARTAN 80 MG TAB PO SCH (09:00)
[2022-02-07] MEDS: CRESTOR 10MG PO SCH (10:46)
[2022-02-07] MEDS: FAMOTIDINE 20 MG TAB PO SCH (10:47)
[2022-02-07] MEDS: VALSARTAN 80 MG TAB PO SCH (10:47)
[2022-02-07] MEDS: LISINOPRIL 2.5 MG TAB PO SCH (10:47)
[2022-02-07] MEDS ORDERED: TAMSULOSIN HCL 0.4 MG CAP PO SCH (21:00)
[2022-02-07] MEDS ORDERED: ATORVASTATIN 10 MG TAB PO SCH (21:00)
[2022-02-07] MEDS: MELATONIN 5 MG TABLET PO SCH (21:43)
[2022-02-08] VITALS (8 sets, daily range): BP systolic 112–130; BP diastolic 51–61
[2022-02-08 06:01] LABS: BASOPHILS % 0.6 % (0.0-1.0); EOSINOPHILS # (AUTO) 0.1 (0.0-0.4); EOSINOPHILS % 2.2 % (0.0-6.0); HEMATOCRIT 32.2 % (38.2-49.6); HEMOGLOBIN 10.3 g/dL (14.0-18.0); LYMPHOCYTES % 16.5 % (18.0-39.1); MEAN CORPUSCULAR HEMOGLOBIN 31.4 pg (28-32); MEAN CORPUSCULAR VOLUME 98.2 fL (81-99); MONOCYTES # (AUTO) 1.1 (0.2-0.8); MONOCYTES % 16.8 % (4.4-11.3); NEUTROPHILS % 63.4 % (38.7-80.0); PLATELET COUNT 107 x10e3/uL (140-360); RED BLOOD COUNT 3.28 x10e6/uL (4.3-5.7); RED CELL DISTRIBUTION WIDTH 15.9 % (11.7-14.4)
[2022-02-08 06:25] LABS: ALBUMIN 2.7 g/dL (3.5-5.0); ALBUMIN/GLOBULIN RATIO 0.8 (0.8-2.0); ANION GAP 15.3 mmol/L (8-16); CALCIUM 8.6 mg/dL (8.4-10.2); CREATININE, SERUM 9.89 mg/dL (0.72-1.25); POTASSIUM 4.3 mmol/L (3.5-5.1)
[2022-02-08] MEDS: INSULIN REGULAR, HUMAN 100 UNIT/1 ML SQ SCH ×4 (07:30→20:48)
[2022-02-08] MEDS: CRESTOR 10MG PO SCH (08:28)
[2022-02-08] MEDS: SEVELAMER CARBONATE 800 MG TAB PO SCH ×3 (08:28→17:50)
[2022-02-08] MEDS: FAMOTIDINE 20 MG TAB PO SCH (08:28)
[2022-02-08] MEDS: ASPIRIN 81 MG CHEW TAB PO SCH (08:28)
[2022-02-08] MEDS: SUCRALFATE 1 GM TAB PO SCH ×3 (08:28→17:50)
[2022-02-08] MEDS: CLOPIDOGREL BISULFATE 75 MG TAB PO SCH (08:29)
[2022-02-08] MEDS: TAMSULOSIN HCL 0.4 MG CAP PO SCH (08:29)
[2022-02-08] MEDS: VALSARTAN 80 MG TAB PO SCH (08:29)
[2022-02-08] MEDS: CYCLOBENZAPRINE HCL 10 MG TAB PO SCH ×2 (08:29→17:51)
[2022-02-08] MEDS: HEPARIN SOD (PORCINE) 5,000 UNIT/ML VIAL SC SCH ×2 (08:40→20:47)
[2022-02-08] MEDS ORDERED: ONDANSETRON HCL 4 MG ORAL DISINTEGRATING TAB PO PRN (10:00)
[2022-02-08] MEDS: LISINOPRIL 2.5 MG TAB PO SCH (10:58)
[2022-02-08] MEDS: METOPROLOL SUCCINATE 25 MG TAB XL PO SCH (10:59)
[2022-02-08] MEDS ORDERED: SODIUM CHLORIDE 0.9% 1000ML 2,000 ML IV PRN (11:00)
[2022-02-08] MEDS ORDERED: SODIUM CHLORIDE 0.9% 250ML 500 ML IV PRN (11:00)
[2022-02-08] MEDS ORDERED: ALBUMIN 25% 12.5GM 0.25 GM/ML BTL IV PRN (11:00)
[2022-02-08] MEDS ORDERED: Vancomycin IV 1 GM in SODIUM CHLORIDE 0.9% 250ML 250 ML IV SCH (17:00)
[2022-02-08] MEDS: ACETAMINOPHEN 325 MG TAB PO PRN (20:48)
[2022-02-08] MEDS: MELATONIN 5 MG TABLET PO SCH (20:48)
[2022-02-09] VITALS (8 sets, daily range): BP systolic 100–129; BP diastolic 46–59
[2022-02-09 05:25] LABS: BASOPHILS # (AUTO) 0.1 (0.0-0.1); BASOPHILS % 0.8 % (0.0-1.0); EOSINOPHILS # (AUTO) 0.2 (0.0-0.4); EOSINOPHILS % 2.9 % (0.0-6.0); HEMATOCRIT 33.6 % (38.2-49.6); HEMOGLOBIN 10.5 g/dL (14.0-18.0); LYMPHOCYTES # (AUTO) 1.4 (1.0-3.2); LYMPHOCYTES % 20.3 % (18.0-39.1); MEAN CORPUSCULAR HEMOGLOBIN 31.6 pg (28-32); MEAN CORPUSCULAR HGB CONC 31.3 g/dL (31-35); MEAN CORPUSCULAR VOLUME 101.2 fL (81-99); MONOCYTES % 14.9 % (4.4-11.3); NEUTROPHILS # (AUTO) 4.1 (2.1-6.9); NEUTROPHILS % 60.8 % (38.7-80.0); PLATELET COUNT 116 x10e3/uL (140-360); RED BLOOD COUNT 3.32 x10e6/uL (4.3-5.7); RED CELL DISTRIBUTION WIDTH 15.7 % (11.7-14.4)
[2022-02-09 05:53] LABS: ALBUMIN 2.7 g/dL (3.5-5.0); ALBUMIN/GLOBULIN RATIO 0.7 (0.8-2.0); ANION GAP 17.2 mmol/L (8-16); CALCIUM 8.2 mg/dL (8.4-10.2); CREATININE, SERUM 7.3 mg/dL (0.72-1.25); POTASSIUM 4.2 mmol/L (3.5-5.1)
[2022-02-09] MEDS: INSULIN REGULAR, HUMAN 100 UNIT/1 ML SQ SCH ×4 (07:30→22:00)
[2022-02-09] MEDS: HEPARIN SOD (PORCINE) 5,000 UNIT/ML VIAL SC SCH ×2 (08:11→22:00)
[2022-02-09] MEDS: ASPIRIN 81 MG CHEW TAB PO SCH (08:11)
[2022-02-09] MEDS: FAMOTIDINE 20 MG TAB PO SCH (08:11)
[2022-02-09] MEDS: CRESTOR 10MG PO SCH (08:11)
[2022-02-09] MEDS: SEVELAMER CARBONATE 800 MG TAB PO SCH ×3 (08:11→16:41)
[2022-02-09] MEDS: SUCRALFATE 1 GM TAB PO SCH ×3 (08:11→16:41)
[2022-02-09] MEDS: VALSARTAN 80 MG TAB PO SCH (08:14)
[2022-02-09] MEDS: CYCLOBENZAPRINE HCL 10 MG TAB PO SCH ×2 (08:14→16:41)
[2022-02-09] MEDS: TAMSULOSIN HCL 0.4 MG CAP PO SCH (08:14)
[2022-02-09] MEDS: METOPROLOL SUCCINATE 25 MG TAB XL PO SCH (08:15)
[2022-02-09] MEDS: CLOPIDOGREL BISULFATE 75 MG TAB PO SCH (08:15)
[2022-02-09] MEDS: LISINOPRIL 2.5 MG TAB PO SCH (08:15)
[2022-02-09] MEDS: MELATONIN 5 MG TABLET PO SCH (22:00)
[2022-02-10] VITALS (8 sets, daily range): BP systolic 110–131; BP diastolic 52–60
[2022-02-10 06:02] LABS: BASOPHILS # (AUTO) 0.1 (0.0-0.1); BASOPHILS % 0.7 % (0.0-1.0); EOSINOPHILS # (AUTO) 0.3 (0.0-0.4); EOSINOPHILS % 3.7 % (0.0-6.0); HEMOGLOBIN 10.3 g/dL (14.0-18.0); LYMPHOCYTES # (AUTO) 1.4 (1.0-3.2); LYMPHOCYTES % 20.1 % (18.0-39.1); MEAN CORPUSCULAR HEMOGLOBIN 31.1 pg (28-32); MEAN CORPUSCULAR HGB CONC 32.2 g/dL (31-35); MEAN CORPUSCULAR VOLUME 96.7 fL (81-99); MONOCYTES % 15.3 % (4.4-11.3); NEUTROPHILS % 59.6 % (38.7-80.0); PLATELET COUNT 127 x10e3/uL (140-360); RED BLOOD COUNT 3.31 x10e6/uL (4.3-5.7); RED CELL DISTRIBUTION WIDTH 15.5 % (11.7-14.4)
[2022-02-10 06:28] LABS: ALBUMIN 2.7 g/dL (3.5-5.0); ALBUMIN/GLOBULIN RATIO 0.7 (0.8-2.0); ANION GAP 14.4 mmol/L (8-16); CALCIUM 8.3 mg/dL (8.4-10.2); CREATININE, SERUM 8.68 mg/dL (0.72-1.25); POTASSIUM 4.4 mmol/L (3.5-5.1)
[2022-02-10] MEDS: INSULIN REGULAR, HUMAN 100 UNIT/1 ML SQ SCH ×4 (07:30→20:50)
[2022-02-10] MEDS: SUCRALFATE 1 GM TAB PO SCH ×3 (08:45→16:30)
[2022-02-10] MEDS: ASPIRIN 81 MG CHEW TAB PO SCH (08:46)
[2022-02-10] MEDS: CRESTOR 10MG PO SCH (08:46)
[2022-02-10] MEDS: FAMOTIDINE 20 MG TAB PO SCH (08:46)
[2022-02-10] MEDS: SEVELAMER CARBONATE 800 MG TAB PO SCH ×3 (08:46→16:30)
[2022-02-10] MEDS: CLOPIDOGREL BISULFATE 75 MG TAB PO SCH (08:48)
[2022-02-10] MEDS: LISINOPRIL 2.5 MG TAB PO SCH (08:48)
[2022-02-10] MEDS: TAMSULOSIN HCL 0.4 MG CAP PO SCH (08:48)
[2022-02-10] MEDS: METOPROLOL SUCCINATE 25 MG TAB XL PO SCH (08:49)
[2022-02-10] MEDS: HEPARIN SOD (PORCINE) 5,000 UNIT/ML VIAL SC SCH (08:51)
[2022-02-10] MEDS: VALSARTAN 80 MG TAB PO SCH (09:00)
[2022-02-10] MEDS: CYCLOBENZAPRINE HCL 10 MG TAB PO SCH ×2 (09:00→17:00)
[2022-02-10] MEDS: MELATONIN 5 MG TABLET PO SCH (20:50)
[2022-02-11] VITALS (7 sets, daily range): BP systolic 115–151; BP diastolic 50–63
[2022-02-11] MEDS: SUCRALFATE 1 GM TAB PO SCH ×5 (07:30→19:26)
[2022-02-11] MEDS: SEVELAMER CARBONATE 800 MG TAB PO SCH ×5 (07:30→19:26)
[2022-02-11] MEDS: FAMOTIDINE 20 MG TAB PO SCH ×2 (07:30→08:43)
[2022-02-11] MEDS: ASPIRIN 81 MG CHEW TAB PO SCH ×2 (08:52→09:00)
[2022-02-11] MEDS: CRESTOR 10MG PO SCH ×2 (08:52→09:00)
[2022-02-11] MEDS: VALSARTAN 80 MG TAB PO SCH ×2 (08:52→09:00)
[2022-02-11] MEDS: INSULIN REGULAR, HUMAN 100 UNIT/1 ML SQ SCH ×4 (08:52→21:29)
[2022-02-11] MEDS: CLOPIDOGREL BISULFATE 75 MG TAB PO SCH ×2 (08:53→09:00)
[2022-02-11] MEDS: TAMSULOSIN HCL 0.4 MG CAP PO SCH ×2 (08:53→09:00)
[2022-02-11] MEDS: METOPROLOL SUCCINATE 25 MG TAB XL PO SCH ×2 (08:53→09:00)
[2022-02-11] MEDS: CYCLOBENZAPRINE HCL 10 MG TAB PO SCH ×4 (08:53→18:34)
[2022-02-11] MEDS: LISINOPRIL 2.5 MG TAB PO SCH ×2 (08:53→09:00)
[2022-02-11] MEDS ORDERED: DEXAMETHASONE SOD PHOS INJ 4 MG/ML SDV ONE (12:16)
[2022-02-11] MEDS ORDERED: ATROPINE SULFATE 1 MG/ML VIAL ONE (12:16)
[2022-02-11] MEDS ORDERED: SEVOFLURANE INHAL SOLN 250 ML PEN BTL ONE (12:16)
[2022-02-11] MEDS ORDERED: NEOSTIGMINE 1 MG/ML 10ML VIAL ONE (12:16)
[2022-02-11] MEDS ORDERED: ONDANSETRON HCL INJ 2MG/ML 2ML 2 MG/ML VIAL ONE (12:16)
[2022-02-11] MEDS ORDERED: POVIDONE IODINE 0.05% 0.05 % ML PO ONE (12:16)
[2022-02-11] MEDS ORDERED: LIDOCAINE HCL 2% LOCAL INJ 5 ML SDV VIAL INJ ONE (12:16)
[2022-02-11] MEDS ORDERED: SUCCINYLCHOLINE CHLORIDE 20 MG/ML 10ML VIAL ONE (12:16)
[2022-02-11] MEDS ORDERED: PROPOFOL IV EMULSION 10 MG/ML 20 ML VIAL ONE (12:16)
[2022-02-11] MEDS ORDERED: ROCURONIUM BROMIDE 10 MG/ML 5ML VIAL IV ONE (12:16)
[2022-02-11] MEDS ORDERED: KETOROLAC TROMETHAMINE 30 MG/ML VIAL ONE (12:16)
[2022-02-11] MEDS ORDERED: FENTANYL CITRATE/PF 100MCG/2 ML INJ ONE (12:48)
[2022-02-11] MEDS ORDERED: MIDAZOLAM HCL 2 MG/2 ML VIAL ONE (12:48)
[2022-02-11] MEDS ORDERED: BUPIVACAINE HCL 0.5% INJ 30 ML VIAL INJ ONE (15:07)
[2022-02-11] MEDS ORDERED: Morphine 2mg Syringe 2 MG/ML SYR IV PRN (16:15)
[2022-02-11] MEDS: MELATONIN 5 MG TABLET PO SCH (21:25)
[2022-02-12] VITALS: BP 141/50
[2022-02-12 04:00] VITALS: BP 146/63
[2022-02-12] MEDS ORDERED: SODIUM CHLORIDE 0.9% 1000ML 2,000 ML ONE (07:24)
[2022-02-12] MEDS: SEVELAMER CARBONATE 800 MG TAB PO SCH ×3 (07:30→16:30)
[2022-02-12] MEDS: SUCRALFATE 1 GM TAB PO SCH ×3 (07:30→16:30)
[2022-02-12] MEDS: INSULIN REGULAR, HUMAN 100 UNIT/1 ML SQ SCH ×3 (07:30→16:30)
[2022-02-12 07:45] VITALS: BP 119/58
[2022-02-12 08:00] VITALS: BP 119/58
[2022-02-12] MEDS: CYCLOBENZAPRINE HCL 10 MG TAB PO SCH ×2 (09:00→17:00)
[2022-02-12 11:29] VITALS: BP 108/62
[2022-02-12] MEDS: CRESTOR 10MG PO SCH (12:00)
[2022-02-12] MEDS: ASPIRIN 81 MG CHEW TAB PO SCH (12:00)
[2022-02-12] MEDS: TAMSULOSIN HCL 0.4 MG CAP PO SCH (12:00)
[2022-02-12] MEDS: VALSARTAN 80 MG TAB PO SCH (12:47)
[2022-02-12] MEDS: FAMOTIDINE 20 MG TAB PO SCH (12:48)
[2022-02-12] MEDS: CLOPIDOGREL BISULFATE 75 MG TAB PO SCH (12:49)
[2022-02-12] MEDS: METOPROLOL SUCCINATE 25 MG TAB XL PO SCH (12:50)
[2022-02-12] MEDS: LISINOPRIL 2.5 MG TAB PO SCH (12:50)
[2022-02-12 15:37] VITALS: BP 110/61
== END 2022-02-12 17:27 | disposition home or self-care (01) | DRG 981 ==
LOC: ER 10:25 → ERHOLD 13:55 → MED/SURG3 14:40
PROVIDERS: ADMIT Internal Medicine; ATTEND Internal Medicine
PROC: 3E03329 Introduction of Other Anti-infective into Peripheral Vein, Percutaneous Approach (ICD-10-PCS; 2022-02-06)
PROC: 3E1M39Z Irrigation of Peritoneal Cavity using Dialysate, Percutaneous Approach (ICD-10-PCS; 2022-02-11)
PROC: 0WHG43Z Insertion of Infusion Device into Peritoneal Cavity, Percutaneous Endoscopic Approach (ICD-10-PCS; principal; 2022-02-11 15:41)
DX: T82.7XXA Infection and inflammatory reaction due to other cardiac and vascular devices, implants and grafts, initial encounter (principal); A41.01 Sepsis due to Methicillin susceptible Staphylococcus aureus; R65.20 Severe sepsis without septic shock; N18.6 End stage renal disease; G93.41 Metabolic encephalopathy; I13.2 Hypertensive heart and chronic kidney disease with heart failure and with stage 5 chronic kidney disease, or end stage renal disease; I50.42 Chronic combined systolic (congestive) and diastolic (congestive) heart failure; E66.9 Obesity, unspecified; E11.22 Type 2 diabetes mellitus with diabetic chronic kidney disease; K66.0 Peritoneal adhesions (postprocedural) (postinfection); Z99.2 Dependence on renal dialysis; I25.2 Old myocardial infarction; Z86.73 Personal history of transient ischemic attack (TIA), and cerebral infarction without residual deficits; I25.10 Atherosclerotic heart disease of native coronary artery without angina pectoris; Z95.810 Presence of automatic (implantable) cardiac defibrillator; Z98.84 Bariatric surgery status; Z96.651 Presence of right artificial knee joint; Z20.822 Contact with and (suspected) exposure to COVID-19; D63.8 Anemia in other chronic diseases classified elsewhere; Z68.36 Body mass index [BMI] 36.0-36.9, adult; Z79.4 Long term (current) use of insulin
CPT/HCPCS: 36415; 70450; 71045; 72125; 76882; 80053; 81001; 82550; 82553; 82948; 83605; 83880; 84484; 85025; 86705; 86706; 87040; 87071; 87086; 87186; 87205; 87340; 93005; 93306; 94799; 96360; 96372; 99251; 99284; C1713; J0330; J0461; J0690; J0692; J0696; J1100; J1644; J1817; J1885; J2001; J2250; J2405; J2710; J3010; J3370; J7030; J7050; U0002

== ENCOUNTER 2022-05-08 17:42 | Emergency (ER) | payer MEDICARE ==
[~2022-05-08] VITALS: Ht 167.6 cm; Wt 101.2 kg
[~2022-05-08 17:42] MED LIST changes: +CLOPIDOGREL75 MG PO; +CYCLOBENZAPRINE10 MG PO; +ETHYL CHLORI103.5 ML TOP; +LISINOPRIL2.5 MG PO; +METOPROLOL SUCC25 MG PO; +MOBIC7.5 MG PO; +ROSUVASTATIN CA10 MG PO; +SEVELAMER CARB800 MG PO; +ULTRAM 50MG50 MG PO; +ULTRAM50 MG PO; +emla cream TOP; +humalog SQ; +melatonin PO
[2022-05-08] MEDS ORDERED: AUGMENTIN 500-1 EACH PO (18:09)
== END 2022-05-08 18:16 | disposition home or self-care (01) ==
LOC: ER 18:07
DX: T82.838A Hemorrhage due to vascular prosthetic devices, implants and grafts, initial encounter (principal); S81.802A Unspecified open wound, left lower leg, initial encounter; I12.0 Hypertensive chronic kidney disease with stage 5 chronic kidney disease or end stage renal disease; E11.22 Type 2 diabetes mellitus with diabetic chronic kidney disease; N18.6 End stage renal disease; Z99.2 Dependence on renal dialysis; I25.10 Atherosclerotic heart disease of native coronary artery without angina pectoris; I25.2 Old myocardial infarction; Z95.810 Presence of automatic (implantable) cardiac defibrillator; Z86.73 Personal history of transient ischemic attack (TIA), and cerebral infarction without residual deficits; Z96.651 Presence of right artificial knee joint; Z98.84 Bariatric surgery status
CPT/HCPCS: 99282

== ENCOUNTER 2023-04-13 10:37 | Inpatient (IN) | payer MEDICARE ==
[~2023-04-13] VITALS: Ht 167.6 cm; Wt 101.2 kg
[~2023-04-13 10:37] MED LIST changes: +AUGMENTIN 500-1 EACH PO
[2023-04-13] MEDS ORDERED: SODIUM CHLORIDE 0.9% 500ML 500 ML IV ONE (10:45)
[2023-04-13 10:59] LABS: BASOPHILS % 0.5 % (0.0-1.0); EOSINOPHILS # (AUTO) 0.1 (0.0-0.4); EOSINOPHILS % 1.3 % (0.0-6.0); HEMATOCRIT 30.9 % (38.2-49.6); HEMOGLOBIN 10.2 g/dL (14.0-18.0); LYMPHOCYTES # (AUTO) 1.1 (1.0-3.2); LYMPHOCYTES % 12.9 % (18.0-39.1); MONOCYTES # (AUTO) 1.2 (0.2-0.8); NEUTROPHILS # (AUTO) 5.9 (2.1-6.9); NEUTROPHILS % 70.9 % (38.7-80.0); PLATELET COUNT 141 x10e3/uL (140-360); RED BLOOD COUNT 3.09 x10e6/uL (4.3-5.7); RED CELL DISTRIBUTION WIDTH 15.3 % (11.7-14.4)
[2023-04-13 11:18] LABS: INR 1.14; PROTHROMBIN TIME 15.2 seconds (11.9-14.5)
[2023-04-13 11:19] LABS: PARTIAL THROMBOPLASTIN TIME 33.9 seconds (23.8-35.5)
[2023-04-13 11:25] LABS: ALBUMIN 2.7 g/dL (3.5-5.0); ALBUMIN/GLOBULIN RATIO 0.8 (0.8-2.0); ANION GAP 18.4 mmol/L (8-16); CALCIUM 8.2 mg/dL (8.4-10.2); CREATININE, SERUM 13.47 mg/dL (0.72-1.25); POTASSIUM 3.4 mmol/L (3.5-5.1)
[2023-04-13] MEDS ORDERED: ONDANSETRON HCL INJ 2MG/ML 2ML 2 MG/ML VIAL IV PRN (13:00)
[2023-04-13] MEDS: SODIUM CHLORIDE 0.9% 1000ML 1,000 ML IV SCH (13:00)
[2023-04-13] MEDS ORDERED: DOCUSATE SODIUM 100 MG CAP PO PRN (13:45)
[2023-04-13] MEDS ORDERED: SIMETHICONE 80 MG CHEW PO PRN (13:45)
[2023-04-13] MEDS ORDERED: DEXTROSE 50% SYRINGE 50 ML IV PRN ×2 (13:45→20:45)
[2023-04-13] MEDS ORDERED: MELATONIN 3 MG TAB PO PRN (13:45)
[2023-04-13 14:13] LABS: CHOL/HDL RATIO 1.7 (3.9-4.7)
[2023-04-13] MEDS: INSULIN REGULAR, HUMAN 100 UNIT/1 ML SQ SCH ×2 (16:30→21:00)
[2023-04-13] MEDS ORDERED: POTASSIUM CHLORIDE 20 MEQ TAB CR PO ONE (17:30)
[2023-04-13 17:53] VITALS: BP 105/55; PULSE 66; RESP 19; TEMP 97.4; O2SAT 100
[2023-04-13] MEDS: SEVELAMER CARBONATE 800 MG TAB PO SCH (18:15)
[2023-04-13 20:00] VITALS: BP 105/55; PULSE 66; RESP 19; TEMP 97.4; O2SAT 100
[2023-04-13] MEDS ORDERED: ACETAMINOPHEN 325 MG TAB PO PRN (20:45)
[2023-04-13] MEDS ORDERED: TRAMADOL HCL 50 MG TAB PO PRN (20:45)
[2023-04-13] MEDS ORDERED: NPH, HUMAN INSULIN ISOPHANE 100 UNIT/1 ML 3ML VIAL SQ SCH (20:45)
[2023-04-13 21:00] VITALS: BP 105/55; PULSE 66; RESP 19; TEMP 97.4; O2SAT 100
[2023-04-13] MEDS ORDERED: INSULIN REGULAR, HUMAN 100 UNIT/1 ML SQ SCH (21:00)
[2023-04-14 06:09] LABS: BASOPHILS # (AUTO) 0.1 (0.0-0.1); BASOPHILS % 1.1 % (0.0-1.0); EOSINOPHILS # (AUTO) 0.2 (0.0-0.4); EOSINOPHILS % 3.1 % (0.0-6.0); HEMATOCRIT 31.7 % (38.2-49.6); HEMOGLOBIN 10.3 g/dL (14.0-18.0); LYMPHOCYTES # (AUTO) 1.4 (1.0-3.2); LYMPHOCYTES % 18.4 % (18.0-39.1); MEAN CORPUSCULAR HEMOGLOBIN 33.1 pg (28-32); MEAN CORPUSCULAR HGB CONC 32.5 g/dL (31-35); MEAN CORPUSCULAR VOLUME 101.9 fL (81-99); NEUTROPHILS # (AUTO) 4.8 (2.1-6.9); PLATELET COUNT 141 x10e3/uL (140-360); RED BLOOD COUNT 3.11 x10e6/uL (4.3-5.7); RED CELL DISTRIBUTION WIDTH 14.8 % (11.7-14.4)
[2023-04-14 06:33] LABS: ALBUMIN 2.7 g/dL (3.5-5.0); ALBUMIN/GLOBULIN RATIO 0.9 (0.8-2.0); ANION GAP 19.5 mmol/L (8-16); CALCIUM 8.1 mg/dL (8.4-10.2); CREATININE, SERUM 13.11 mg/dL (0.72-1.25); POTASSIUM 3.5 mmol/L (3.5-5.1)
[2023-04-14 08:06] VITALS: BP 97/47; PULSE 65; RESP 18; TEMP 97.9; O2SAT 95
[2023-04-14 08:16] VITALS: BP 98/49; PULSE 65; RESP 18; TEMP 97.9; O2SAT 95
[2023-04-14] MEDS: TAMSULOSIN HCL 0.4 MG CAP PO SCH (08:42)
[2023-04-14] MEDS: SEVELAMER CARBONATE 800 MG TAB PO SCH ×3 (08:42→15:41)
[2023-04-14] MEDS: CLOPIDOGREL BISULFATE 75 MG TAB PO SCH (08:42)
[2023-04-14] MEDS: INSULIN REGULAR, HUMAN 100 UNIT/1 ML SQ SCH ×7 (08:44→21:00)
[2023-04-14] MEDS ORDERED: NON-FORMULARY MEDICATION (Rosuvastatin Calcium 10 MG) PO SCH (09:00)
[2023-04-14] MEDS: SODIUM CHLORIDE 0.9% 1000ML 1,000 ML IV SCH (09:50)
[2023-04-14 11:42] VITALS: BP 94/50; PULSE 73; RESP 18; TEMP 98.2; O2SAT 100
[2023-04-14] MEDS ORDERED: ONDANSETRON HCL 4 MG ORAL DISINTEGRATING TAB PO PRN (13:30)
[2023-04-14] MEDS ORDERED: ALBUMIN 5% 0.05 GM/ML BTL IV ONE (14:30)
[2023-04-14] MEDS ORDERED: ALBUMIN 5% 250ML 500 ML IV ONE (15:00)
[2023-04-14] MEDS ORDERED: Vancomycin IV 1 GM in SODIUM CHLORIDE 0.9% 250ML 250 ML IV ONE ×2 (15:00→20:00)
[2023-04-14 15:51] VITALS: BP 96/51; PULSE 83; RESP 18; TEMP 98; O2SAT 96
[2023-04-14 20:00] VITALS: BP 98/43; PULSE 77; RESP 17; TEMP 98.3; O2SAT 99
[2023-04-14] MEDS: CRESTOR 10MG PO SCH (21:08)
[2023-04-15] VITALS (8 sets, daily range): BP systolic 99–112; BP diastolic 30–58; PULSE 77–86; RESP 15–19; TEMP 98–98.7; O2SAT 98–100
[2023-04-15 08:17] LABS: ANION GAP 17.4 mmol/L (8-16); CALCIUM 7.9 mg/dL (8.4-10.2); POTASSIUM 3.4 mmol/L (3.5-5.1)
[2023-04-15] MEDS: INSULIN REGULAR, HUMAN 100 UNIT/1 ML SQ SCH ×7 (09:10→20:53)
[2023-04-15] MEDS: CLOPIDOGREL BISULFATE 75 MG TAB PO SCH (09:18)
[2023-04-15] MEDS: TAMSULOSIN HCL 0.4 MG CAP PO SCH (09:18)
[2023-04-15] MEDS: SEVELAMER CARBONATE 800 MG TAB PO SCH ×3 (09:18→16:44)
[2023-04-15] MEDS ORDERED: POTASSIUM CHLORIDE 20 MEQ TAB CR PO STA (10:08)
[2023-04-15 18:32] LABS: CLARITY,URINE CLOUDY (CLEAR); COLOR,URINE YELLOW (YELLOW)
[2023-04-15 18:33] LABS: KETONES,URINE TRACE (NEGATIVE); LEUKOCYTE ESTERASE ,URINE MODERATE (NEGATIVE); NITRITE,URINE NEGATIVE (NEGATIVE); PROTEIN,URINE DIPSTICK >=300 (NEGATIVE); URINE UROBILINOGEN 0.2 mg/dL (0.2 - 1)
[2023-04-15 18:40] LABS: WBC,URINE (MAN) >50 /HPF (0-5)
[2023-04-15 18:41] LABS: BACTERIA,URINE MANY /HPF; EPITHELIAL CELLS,URINE FEW /LPF; TRANSITIONAL EPI CELLS,URINE FEW
[2023-04-15 18:43] LABS: RBC,URINE >50 /HPF (0-5)
[2023-04-15] MEDS: CRESTOR 10MG PO SCH (22:29)
[2023-04-16] VITALS (8 sets, daily range): BP systolic 90–104; BP diastolic 42–60; PULSE 80–87; RESP 15–21; TEMP 97–98.3; O2SAT 99–100
[2023-04-16] MEDS: TAMSULOSIN HCL 0.4 MG CAP PO SCH (09:03)
[2023-04-16] MEDS: CLOPIDOGREL BISULFATE 75 MG TAB PO SCH (09:03)
[2023-04-16] MEDS: SEVELAMER CARBONATE 800 MG TAB PO SCH ×3 (09:03→17:25)
[2023-04-16] MEDS: INSULIN REGULAR, HUMAN 100 UNIT/1 ML SQ SCH ×7 (09:06→21:00)
[2023-04-16] MEDS: CRESTOR 10MG PO SCH (21:31)
[2023-04-16] MEDS: MIDODRINE 2.5 MG TAB PO SCH (22:00)
[2023-04-17 00:43] VITALS: BP 108/45; PULSE 88; RESP 17; TEMP 98.2; O2SAT 98
[2023-04-17 06:44] VITALS: BP 89/52; PULSE 85; RESP 16; TEMP 98.3; O2SAT 98
[2023-04-17] MEDS: INSULIN REGULAR, HUMAN 100 UNIT/1 ML SQ SCH ×7 (07:30→22:09)
[2023-04-17] MEDS: CLOPIDOGREL BISULFATE 75 MG TAB PO SCH (08:25)
[2023-04-17] MEDS: SEVELAMER CARBONATE 800 MG TAB PO SCH ×3 (08:25→16:30)
[2023-04-17] MEDS: TAMSULOSIN HCL 0.4 MG CAP PO SCH (08:25)
[2023-04-17] MEDS: MIDODRINE 2.5 MG TAB PO SCH ×3 (08:25→16:30)
[2023-04-17 09:03] VITALS: BP 89/52; PULSE 85; RESP 16; TEMP 98.3; O2SAT 98
[2023-04-17 12:00] VITALS: BP 116/59; PULSE 87; RESP 18; TEMP 98.3; O2SAT 98
[2023-04-17 16:17] VITALS: BP 110/54; PULSE 88; RESP 16; TEMP 98.6; O2SAT 98
[2023-04-17] MEDS: CRESTOR 10MG PO SCH (20:15)
[2023-04-17 21:20] VITALS: BP 98/49; PULSE 92; RESP 18; TEMP 98.1; O2SAT 100
[2023-04-18 00:53] VITALS: BP 97/56; PULSE 81; RESP 18; TEMP 98.1; O2SAT 100
[2023-04-18 04:00] VITALS: BP 97/52; PULSE 85; RESP 17; TEMP 98; O2SAT 100
[2023-04-18 06:05] LABS: ALBUMIN 2.5 g/dL (3.5-5.0); ALBUMIN/GLOBULIN RATIO 0.8 (0.8-2.0); ANION GAP 17.3 mmol/L (8-16); CALCIUM 7.9 mg/dL (8.4-10.2); CREATININE, SERUM 11.28 mg/dL (0.72-1.25); MAGNESIUM 1.9 MG/DL (1.3-2.1); POTASSIUM 3.3 mmol/L (3.5-5.1)
[2023-04-18] MEDS ORDERED: MIDODRINE 2.5 MG TAB PO STA (07:06)
[2023-04-18] MEDS ORDERED: CIPRO250 MG PO (07:09)
[2023-04-18] MEDS ORDERED: MIDODRINE HCL10 MG PO (07:09)
[2023-04-18] MEDS ORDERED: FLUDROCORTISON0.1 MG PO (07:13)
[2023-04-18] MEDS: SEVELAMER CARBONATE 800 MG TAB PO SCH ×2 (07:50→11:08)
[2023-04-18] MEDS: CLOPIDOGREL BISULFATE 75 MG TAB PO SCH (07:50)
[2023-04-18] MEDS: TAMSULOSIN HCL 0.4 MG CAP PO SCH (07:50)
[2023-04-18] MEDS: INSULIN REGULAR, HUMAN 100 UNIT/1 ML SQ SCH ×4 (07:52→11:14)
[2023-04-18 08:21] VITALS: BP 97/52; PULSE 85; RESP 17; TEMP 98; O2SAT 100
[2023-04-18 08:39] VITALS: BP 108/53; PULSE 86; RESP 18; TEMP 98; O2SAT 98
[2023-04-18] MEDS ORDERED: POTASSIUM CHLORIDE 20 MEQ TAB CR PO ONE (11:15)
[2023-04-18] MEDS ORDERED: MIDODRINE 2.5 MG TAB PO SCH (12:00)
== END 2023-04-18 11:30 | disposition home or self-care (01) | DRG 314 ==
LOC: ER 10:42 → ERHOLD 12:58 → MED/SURG2 15:27 → OBSVTOIN 04-14 16:02
PROVIDERS: ADMIT Internal Medicine; ATTEND Internal Medicine
PROC: 5A1D70Z Performance of Urinary Filtration, Intermittent, Less than 6 Hours Per Day (ICD-10-PCS; principal; 2023-04-17)
DX: I95.9 Hypotension, unspecified (principal); N18.6 End stage renal disease; I13.2 Hypertensive heart and chronic kidney disease with heart failure and with stage 5 chronic kidney disease, or end stage renal disease; I50.42 Chronic combined systolic (congestive) and diastolic (congestive) heart failure; E11.22 Type 2 diabetes mellitus with diabetic chronic kidney disease; I25.10 Atherosclerotic heart disease of native coronary artery without angina pectoris; E11.21 Type 2 diabetes mellitus with diabetic nephropathy; E11.40 Type 2 diabetes mellitus with diabetic neuropathy, unspecified; E11.319 Type 2 diabetes mellitus with unspecified diabetic retinopathy without macular edema; N40.0 Benign prostatic hyperplasia without lower urinary tract symptoms; D63.1 Anemia in chronic kidney disease; E87.6 Hypokalemia; I25.2 Old myocardial infarction; Z95.1 Presence of aortocoronary bypass graft; Z86.73 Personal history of transient ischemic attack (TIA), and cerebral infarction without residual deficits; Z99.2 Dependence on renal dialysis; Z95.810 Presence of automatic (implantable) cardiac defibrillator; Z98.84 Bariatric surgery status; Z96.651 Presence of right artificial knee joint; Z95.5 Presence of coronary angioplasty implant and graft; Z79.02 Long term (current) use of antithrombotics/antiplatelets; Z79.4 Long term (current) use of insulin
CPT/HCPCS: 36415; 71045; 80048; 80053; 80061; 81001; 82948; 83036; 83605; 83735; 85025; 85610; 85730; 87040; 87071; 87086; 87186; 87205; 93306; 93880; 96372; 99252; 99284; G0378; J0696; J7030; J7040

== ENCOUNTER 2024-05-09 19:22 | Inpatient (IN) | payer MEDICARE ==
[~2024-05-09] VITALS: Ht 167.6 cm; Wt 77.7 kg
[~2024-05-09 19:22] MED LIST changes: +CIPRO250 MG PO; +FLUDROCORTISON0.1 MG PO; +MIDODRINE HCL10 MG PO
[2024-05-09 19:51] LABS: HEMATOCRIT 35.7 % (38.2-49.6); LYMPHOCYTES # (AUTO) 0.2 (1.0-3.2); LYMPHOCYTES % 9.4 % (18.0-39.1); MEAN CORPUSCULAR HEMOGLOBIN 30.8 pg (28-32); MEAN CORPUSCULAR HGB CONC 30.8 g/dL (31-35); MONOCYTES % 1.2 % (4.4-11.3); NEUTROPHILS # (AUTO) 1.5 (2.1-6.9); NEUTROPHILS % 88.8 % (38.7-80.0); RED BLOOD COUNT 3.57 x10e6/uL (4.3-5.7); RED CELL DISTRIBUTION WIDTH 15.9 % (11.7-14.4)
[2024-05-09 19:56] LABS: PLATELET COUNT 89 x10e3/uL (140-360)
[2024-05-09] MEDS: ACETAMINOPHEN 325 MG TAB PO STA (19:59)
[2024-05-09] MEDS: SODIUM CHLORIDE 0.9% 1000ML 1,000 ML IV STA (19:59)
[2024-05-09 20:09] LABS: ALBUMIN 3.7 g/dL (3.5-5.0); ALBUMIN/GLOBULIN RATIO 1.1 (0.8-2.0); ANION GAP 26.1 mmol/L (8-16); CALCIUM 9.6 mg/dL (8.4-10.2); CREATININE, SERUM 6.37 mg/dL (0.72-1.25); POTASSIUM 4.1 mmol/L (3.5-5.1); TOTAL PROTEIN 7.1 g/dL (6.5-8.1)
[2024-05-09 20:16] LABS: B-TYPE NATRIURETIC PEPTIDE2 2656.8 pg/mL (0-100); TROPONIN I 0.097 ng/mL (0-0.300)
[2024-05-09] MEDS ORDERED: ONDANSETRON HCL INJ 2MG/ML 2ML 2 MG/ML VIAL IV PRN (21:00)
[2024-05-09] MEDS ORDERED: Morphine 4mg INJECTION 4 MG/ML INJ IV PRN (21:00)
[2024-05-09 21:40] VITALS: PULSE 101; RESP 18; O2SAT 96
[2024-05-09 21:51] VITALS: TEMP 99.4
[2024-05-09 22:56] VITALS: PULSE 97; RESP 16
[2024-05-10] VITALS (57 sets, daily range): BP systolic 89–125; BP diastolic 49–67; PULSE 70–98; RESP 11–25; TEMP 97.3–99.1; O2SAT 95–100
[2024-05-10] MEDS ORDERED: ACETAMINOPHEN 325 MG TAB PO PRN (01:00)
[2024-05-10 06:51] LABS: BASOPHILS # (AUTO) 0.1 (0.0-0.1); BASOPHILS % 0.4 % (0.0-1.0); EOSINOPHILS # (AUTO) 0.1 (0.0-0.4); EOSINOPHILS % 0.8 % (0.0-6.0); HEMATOCRIT 33.9 % (38.2-49.6); HEMOGLOBIN 10.5 g/dL (14.0-18.0); LYMPHOCYTES # (AUTO) 0.6 (1.0-3.2); LYMPHOCYTES % 4.5 % (18.0-39.1); MONOCYTES # (AUTO) 1.8 (0.2-0.8); MONOCYTES % 13.3 % (4.4-11.3); NEUTROPHILS # (AUTO) 10.9 (2.1-6.9); NEUTROPHILS % 79.5 % (38.7-80.0); PLATELET COUNT 68 x10e3/uL (140-360); RED BLOOD COUNT 3.39 x10e6/uL (4.3-5.7); RED CELL DISTRIBUTION WIDTH 16.3 % (11.7-14.4)
[2024-05-10 06:53] LABS: ALBUMIN 2.8 g/dL (3.5-5.0); ALBUMIN/GLOBULIN RATIO 0.9 (0.8-2.0); ANION GAP 17.9 mmol/L (8-16); CALCIUM 9.4 mg/dL (8.4-10.2); CREATININE, SERUM 6.75 mg/dL (0.72-1.25); POTASSIUM 3.9 mmol/L (3.5-5.1); TOTAL PROTEIN 5.8 g/dL (6.5-8.1)
[2024-05-10 06:54] LABS: WHITE BLOOD COUNT 13.72 x10e3/uL (4.8-10.8)
[2024-05-10 06:59] LABS: TROPONIN I 0.132 ng/mL (0-0.300)
[2024-05-10] MEDS ORDERED: ASPIRIN81 MG PO (10:16)
[2024-05-10] MEDS: Vancomycin IV 1 GM in SODIUM CHLORIDE 0.9% 250ML 250 ML IV ONE (11:20)
[2024-05-10] MEDS ORDERED: SODIUM CHLORIDE 0.9% 250ML 500 ML IV PRN (11:45)
[2024-05-10] MEDS ORDERED: ALBUMIN 25% 12.5GM 0.25 GM/ML BTL IV PRN (11:45)
[2024-05-10] MEDS: SODIUM CHLORIDE 0.9% 250ML 250 ML ONE (11:53)
[2024-05-10] MEDS: SODIUM CHLORIDE 0.9% 1000ML 0 ML ONE (15:06)
[2024-05-10 15:57] LABS: TROPONIN I 0.099 ng/mL (0-0.300)
[2024-05-10] MEDS ORDERED: Vancomycin IV 500 MG in SODIUM CHLORIDE 0.9% 100 ML IV SCH (17:00)
[2024-05-10] MEDS: Vancomycin IV 500 MG in SODIUM CHLORIDE 0.9% 100 ML IV SCH (19:53)
[2024-05-11] VITALS (49 sets, daily range): BP systolic 82–118; BP diastolic 49–78; PULSE 58–94; RESP 12–20; TEMP 98–98.6; O2SAT 93–100
[2024-05-11 07:08] LABS: ALBUMIN 3.3 g/dL (3.5-5.0); ALBUMIN/GLOBULIN RATIO 1.1 (0.8-2.0); ANION GAP 14.2 mmol/L (8-16); CALCIUM 10.1 mg/dL (8.4-10.2); CREATININE, SERUM 5.15 mg/dL (0.72-1.25); POTASSIUM 4.2 mmol/L (3.5-5.1); TOTAL PROTEIN 6.3 g/dL (6.5-8.1)
[2024-05-11] MEDS: ACETAMINOPHEN 1000 MG/100 ML 100 ML IV ONE (07:09)
[2024-05-11 09:25] LABS: BASOPHILS % 0.3 % (0.0-1.0); EOSINOPHILS # (AUTO) 0.1 (0.0-0.4); EOSINOPHILS % 1.5 % (0.0-6.0); HEMATOCRIT 31.1 % (38.2-49.6); HEMOGLOBIN 9.8 g/dL (14.0-18.0); LYMPHOCYTES # (AUTO) 0.7 (1.0-3.2); LYMPHOCYTES % 7.9 % (18.0-39.1); MEAN CORPUSCULAR HEMOGLOBIN 31.2 pg (28-32); MEAN CORPUSCULAR HGB CONC 31.5 g/dL (31-35); MONOCYTES # (AUTO) 0.8 (0.2-0.8); MONOCYTES % 9.2 % (4.4-11.3); NEUTROPHILS # (AUTO) 7.3 (2.1-6.9); NEUTROPHILS % 80.4 % (38.7-80.0); PLATELET COUNT 79 x10e3/uL (140-360); RED BLOOD COUNT 3.14 x10e6/uL (4.3-5.7); RED CELL DISTRIBUTION WIDTH 15.9 % (11.7-14.4); WHITE BLOOD COUNT 9.07 x10e3/uL (4.8-10.8)
[2024-05-12] VITALS (16 sets, daily range): BP systolic 86–118; BP diastolic 50–61; PULSE 69–88; RESP 13–20; TEMP 98–98.2; O2SAT 95–100
[2024-05-13] VITALS (9 sets, daily range): BP systolic 120–165; BP diastolic 59–80; PULSE 68–90; RESP 17–20; TEMP 97.9–98.7; O2SAT 97–100
[2024-05-13 05:22] LABS: HEPATITIS B CORE AB TOTAL Negative; HEPATITIS B SURFACE AG (P) Negative
[2024-05-13 05:25] LABS: TROPONIN I 0.035 ng/mL (0-0.300)
[2024-05-13] MEDS ORDERED: SODIUM CHLORIDE 0.9% 1000ML 2,000 ML IV PRN (08:00)
[2024-05-13] MEDS ORDERED: ALBUMIN 25% 12.5GM 0.25 GM/ML BTL IV PRN (08:45)
[2024-05-13] MEDS: SODIUM CHLORIDE 0.9% 1000ML 2,000 ML ONE (20:01)
[2024-05-14] VITALS (9 sets, daily range): BP systolic 121–135; BP diastolic 53–64; PULSE 67–99; RESP 16–20; TEMP 97.8–98.4; O2SAT 97–100
[2024-05-14 07:57] LABS: ALBUMIN 3.3 g/dL (3.5-5.0); ALBUMIN/GLOBULIN RATIO 1.1 (0.8-2.0); ANION GAP 14.9 mmol/L (8-16); BILIRUBIN,TOTAL 0.9 mg/dL (0.2-1.2); CALCIUM 9.6 mg/dL (8.4-10.2); CREATININE, SERUM 5.04 mg/dL (0.72-1.25); POTASSIUM 3.9 mmol/L (3.5-5.1); TOTAL PROTEIN 6.4 g/dL (6.5-8.1)
[2024-05-15] VITALS (10 sets, daily range): BP systolic 103–138; BP diastolic 50–80; PULSE 58–92; RESP 14–20; TEMP 97.4–99.1; O2SAT 93–100
[2024-05-15] MEDS ORDERED: ALBUMIN 25% 12.5GM 0.25 GM/ML BTL IV PRN (08:00)
[2024-05-16] VITALS (11 sets, daily range): BP systolic 101–121; BP diastolic 51–58; PULSE 67–85; RESP 14–20; TEMP 97.5–98.6; O2SAT 96–100
[2024-05-17] VITALS: BP 113/55; PULSE 73; RESP 16; TEMP 97.7; O2SAT 100
[2024-05-17 04:00] VITALS: BP 122/71; PULSE 76; RESP 17; TEMP 97.5; O2SAT 100
[2024-05-17 06:30] VITALS: BP 122/53; PULSE 76; RESP 20; TEMP 97.9; O2SAT 100
[2024-05-17 06:54] LABS: BASOPHILS # (AUTO) 0.1 (0.0-0.1); BASOPHILS % 1.1 % (0.0-1.0); EOSINOPHILS # (AUTO) 0.2 (0.0-0.4); HEMOGLOBIN 10.2 g/dL (14.0-18.0); LYMPHOCYTES # (AUTO) 1.3 (1.0-3.2); LYMPHOCYTES % 24.3 % (18.0-39.1); MEAN CORPUSCULAR HEMOGLOBIN 31.3 pg (28-32); MEAN CORPUSCULAR HGB CONC 31.9 g/dL (31-35); MEAN CORPUSCULAR VOLUME 98.2 fL (81-99); MONOCYTES # (AUTO) 0.9 (0.2-0.8); MONOCYTES % 17.9 % (4.4-11.3); NEUTROPHILS # (AUTO) 2.7 (2.1-6.9); PLATELET COUNT 157 x10e3/uL (140-360); RED BLOOD COUNT 3.26 x10e6/uL (4.3-5.7); RED CELL DISTRIBUTION WIDTH 16.3 % (11.7-14.4); WHITE BLOOD COUNT 5.26 x10e3/uL (4.8-10.8)
[2024-05-17 07:15] LABS: ANION GAP 19.6 mmol/L (8-16); CALCIUM 9.5 mg/dL (8.4-10.2); CREATININE, SERUM 7.21 mg/dL (0.72-1.25); POTASSIUM 3.6 mmol/L (3.5-5.1)
[2024-05-17 08:00] VITALS: BP 114/50; PULSE 77; RESP 17; TEMP 98.2; O2SAT 100
[2024-05-17 12:00] VITALS: BP 115/55; PULSE 63; RESP 17; TEMP 97.9; O2SAT 99
[2024-05-17 16:00] VITALS: BP_SYST 104; BP_SYST 153; BP_DIAS 46; BP_DIAS 75; PULSE 64; PULSE 82; RESP 17; TEMP 98.4; O2SAT 96; O2SAT 99
== END 2024-05-17 19:15 | disposition home or self-care (01) | DRG 314 ==
LOC: ER 19:30 → ERHOLD 21:27 → ICU 05-10 00:40 → MED/SURG2 05-12 15:15
PROVIDERS: ADMIT Internal Medicine; ATTEND Internal Medicine
PROC: 06HY33Z Insertion of Infusion Device into Lower Vein, Percutaneous Approach (ICD-10-PCS; principal; 2024-05-09)
PROC: 3E0333Z Introduction of Anti-inflammatory into Peripheral Vein, Percutaneous Approach (ICD-10-PCS; 2024-05-09)
PROC: 5A1D70Z Performance of Urinary Filtration, Intermittent, Less than 6 Hours Per Day (ICD-10-PCS; 2024-05-10)
DX: T82.7XXA Infection and inflammatory reaction due to other cardiac and vascular devices, implants and grafts, initial encounter (principal); A28.0 Pasteurellosis; R65.21 Severe sepsis with septic shock; I12.0 Hypertensive chronic kidney disease with stage 5 chronic kidney disease or end stage renal disease; N18.6 End stage renal disease; L03.113 Cellulitis of right upper limb; R53.81 Other malaise; I25.10 Atherosclerotic heart disease of native coronary artery without angina pectoris; Z99.2 Dependence on renal dialysis; E87.70 Fluid overload, unspecified; Z11.52 Encounter for screening for COVID-19; E66.9 Obesity, unspecified; Z68.27 Body mass index [BMI] 27.0-27.9, adult; Y83.3 Surgical operation with formation of external stoma as the cause of abnormal reaction of the patient, or of later complication, without mention of misadventure at the time of the procedure; Z79.02 Long term (current) use of antithrombotics/antiplatelets; I25.2 Old myocardial infarction; Z95.810 Presence of automatic (implantable) cardiac defibrillator; Z86.73 Personal history of transient ischemic attack (TIA), and cerebral infarction without residual deficits; Z88.8 Allergy status to other drugs, medicaments and biological substances; Z88.1 Allergy status to other antibiotic agents
CPT/HCPCS: 36415; 71045; 80048; 80053; 82550; 82948; 83605; 83690; 83880; 84484; 85025; 86704; 86705; 86706; 87040; 87071; 87205; 87340; 93005; 94660; 94799; 99252; 99285; J2543; J3370; J7030; J7050; U0002

== ENCOUNTER 2025-02-12 14:53 | Inpatient (IN) | payer MEDICARE ==
[~2025-02-12] VITALS: Ht 170.2 cm; Wt 77.6 kg
[~2025-02-12 14:53] MED LIST changes: +ASPIRIN81 MG PO
[2025-02-12] MEDS ORDERED: SODIUM CHLORIDE FLUSH 10 ML SYR IV PRN (15:30)
[2025-02-12 16:13] LABS: BASOPHILS # (AUTO) 0.1 (0.0-0.1); EOSINOPHILS # (AUTO) 0.1 (0.0-0.4); EOSINOPHILS % 1.4 % (0.0-6.0); HEMATOCRIT 39.9 % (38.2-49.6); HEMOGLOBIN 12.5 g/dL (14.0-18.0); LYMPHOCYTES # (AUTO) 0.7 (1.0-3.2); LYMPHOCYTES % 9.7 % (18.0-39.1); MEAN CORPUSCULAR HEMOGLOBIN 31.2 pg (28-32); MEAN CORPUSCULAR HGB CONC 31.3 g/dL (31-35); MEAN CORPUSCULAR VOLUME 99.5 fL (81-99); MONOCYTES % 13.6 % (4.4-11.3); NEUTROPHILS # (AUTO) 5.4 (2.1-6.9); NEUTROPHILS % 73.9 % (38.7-80.0); PLATELET COUNT 147 x10e3/uL (140-360); RED BLOOD COUNT 4.01 x10e6/uL (4.3-5.7); RED CELL DISTRIBUTION WIDTH 15.2 % (11.7-14.4); WHITE BLOOD COUNT 7.29 x10e3/uL (4.8-10.8)
[2025-02-12 16:32] LABS: ALBUMIN 3.5 g/dL (3.5-5.0); ALBUMIN/GLOBULIN RATIO 0.9 (0.8-2.0); ANION GAP 19.8 mmol/L (8-16); BILIRUBIN,TOTAL 0.6 mg/dL (0.2-1.2); CALCIUM 9.6 mg/dL (8.4-10.2); CREATININE, SERUM 3.74 mg/dL (0.72-1.25); POTASSIUM 3.8 mmol/L (3.5-5.1); TOTAL PROTEIN 7.5 g/dL (6.5-8.1)
[2025-02-12 16:38] LABS: TROPONIN I 0.08 ng/mL (0-0.300)
[2025-02-12] MEDS ORDERED: SODIUM CHLORIDE FLUSH 10 ML SYR INJ PRN (17:30)
[2025-02-12] MEDS ORDERED: ONDANSETRON HCL INJ 2MG/ML 2ML 2 MG/ML VIAL IV PRN (17:30)
[2025-02-12 19:45] VITALS: PULSE 97; RESP 16; TEMP 98.9
[2025-02-12 19:50] VITALS: BP 116/66; PULSE 102; RESP 18; TEMP 97.7; O2SAT 99
[2025-02-12 20:01] VITALS: PULSE 100; RESP 18; O2SAT 98
[2025-02-12 21:00] VITALS: BP 116/66; PULSE 100; RESP 18; TEMP 97.7; O2SAT 98
[2025-02-12] MEDS: BENZONATATE 100 MG CAP PO PRN (22:52)
[2025-02-13] VITALS (12 sets, daily range): BP systolic 92–127; BP diastolic 52–68; PULSE 74–104; RESP 17–21; TEMP 97.4–97.6; O2SAT 96–100
[2025-02-13 05:26] LABS: BASOPHILS # (AUTO) 0.1 (0.0-0.1); BASOPHILS % 1.1 % (0.0-1.0); EOSINOPHILS # (AUTO) 0.1 (0.0-0.4); EOSINOPHILS % 1.6 % (0.0-6.0); HEMATOCRIT 41.6 % (38.2-49.6); LYMPHOCYTES # (AUTO) 0.9 (1.0-3.2); LYMPHOCYTES % 12.8 % (18.0-39.1); MEAN CORPUSCULAR HEMOGLOBIN 31.3 pg (28-32); MEAN CORPUSCULAR HGB CONC 31.3 g/dL (31-35); MEAN CORPUSCULAR VOLUME 100.2 fL (81-99); MONOCYTES # (AUTO) 0.9 (0.2-0.8); MONOCYTES % 13.2 % (4.4-11.3); NEUTROPHILS % 70.9 % (38.7-80.0); PLATELET COUNT 146 x10e3/uL (140-360); RED BLOOD COUNT 4.15 x10e6/uL (4.3-5.7); RED CELL DISTRIBUTION WIDTH 15.3 % (11.7-14.4); WHITE BLOOD COUNT 7.02 x10e3/uL (4.8-10.8)
[2025-02-13 05:59] LABS: ALBUMIN 3.5 g/dL (3.5-5.0); ALBUMIN/GLOBULIN RATIO 0.9 (0.8-2.0); ANION GAP 18.9 mmol/L (8-16); BILIRUBIN,TOTAL 0.7 mg/dL (0.2-1.2); CALCIUM 9.8 mg/dL (8.4-10.2); CREATININE, SERUM 4.66 mg/dL (0.72-1.25); POTASSIUM 3.9 mmol/L (3.5-5.1); TOTAL PROTEIN 7.4 g/dL (6.5-8.1)
[2025-02-13] MEDS ORDERED: ACETAMINOPHEN 325 MG TAB PO PRN (10:00)
[2025-02-13] MEDS ORDERED: DEXTROSE 50% SYRINGE 50 ML IV PRN (10:00)
[2025-02-13] MEDS ORDERED: ALBUTEROL/IPRATROPIUM 3 ML NEB NEB PRN (10:00)
[2025-02-13] MEDS ORDERED: METOPROLOL TARTRATE INJ 1 MG/ML VIAL IV PRN (10:00)
[2025-02-13 10:11] LABS: CHOL/HDL RATIO 1.5 (3.9-4.7)
[2025-02-13] MEDS: ALBUTEROL/IPRATROPIUM 3 ML NEB NEB SCH (10:49)
[2025-02-13] MEDS: SEVELAMER CARBONATE 800 MG TAB PO SCH (13:34)
[2025-02-13] MEDS: INSULIN REGULAR, HUMAN 100 UNIT/1 ML SQ SCH (13:37)
[2025-02-13] MEDS ORDERED: MELATONIN 3 MG TAB PO PRN (21:00)
[2025-02-13] MEDS: HEPARIN SOD (PORCINE) 5,000 UNIT/ML VIAL SC SCH (21:45)
[2025-02-14] VITALS (17 sets, daily range): BP systolic 93–103; BP diastolic 45–65; PULSE 67–105; RESP 18–20; TEMP 97.3–98.1; O2SAT 94–100
[2025-02-14] MEDS: CLOPIDOGREL BISULFATE 75 MG TAB PO SCH (09:30)
[2025-02-14] MEDS: ASPIRIN 81 MG CHEW TAB PO SCH (09:30)
[2025-02-14] MEDS: CRESTOR 10MG PO SCH (09:38)
[2025-02-14] MEDS ORDERED: SODIUM CHLORIDE 0.9% 1000ML 2,000 ML IV PRN (10:45)
[2025-02-14] MEDS ORDERED: ALBUMIN 25% 12.5GM 0.25 GM/ML BTL IV PRN (10:45)
[2025-02-14] MEDS ORDERED: MIDODRINE HCL 5 MG TABLET PO SCH (12:00)
[2025-02-14] MEDS: MIDODRINE HCL 5 MG TABLET PO ONE (12:33)
[2025-02-14] MEDS: PANTOPRAZOLE SOD 40 MG TABEC PO SCH (12:33)
[2025-02-14] MEDS ORDERED: OMEPRAZOLE 20 MG CAP PO SCH (17:00)
[2025-02-14] MEDS: SODIUM CHLORIDE 0.9% 1000ML 1,000 ML ONE (21:28)
[2025-02-15 05:23] LABS: HEPATITIS B SURFACE AG (P) Negative (Negative)
[2025-02-15 06:58] VITALS: PULSE 95; RESP 18; O2SAT 93
[2025-02-15] MEDS ORDERED: BENZONATATE100 MG PO (08:10)
[2025-02-15] MEDS ORDERED: ZITHROMAX500 MG PO (08:10)
[2025-02-15] MEDS ORDERED: CEPHALEXIN500 MG PO (08:10)
[2025-02-15] MEDS ORDERED: LORATADINE10 MG PO (08:10)
[2025-02-15 08:29] VITALS: BP_SYST 102; BP_SYST 167; BP_DIAS 109; BP_DIAS 66; PULSE 140; PULSE 78; RESP 18; RESP 20; TEMP 98.1; O2SAT 98
[2025-02-15 08:30] VITALS: BP 102/66; PULSE 78; RESP 18; TEMP 98.1; O2SAT 98
[2025-02-15 11:05] VITALS: PULSE 86; RESP 18; O2SAT 100
[2025-02-15 12:21] VITALS: BP 108/56; PULSE 96; RESP 18; TEMP 98.1; O2SAT 99
== END 2025-02-15 14:40 | disposition home or self-care (01) | DRG 291 ==
LOC: ER 15:13 → ERHOLD 17:26 → MED/SURG2 20:05 → OBSVTOIN 02-13 09:55
PROVIDERS: ADMIT Internal Medicine; ATTEND Internal Medicine
PROC: 5A1D70Z Performance of Urinary Filtration, Intermittent, Less than 6 Hours Per Day (ICD-10-PCS; principal; 2025-02-13)
PROC: 5A09357 Assistance with Respiratory Ventilation, Less than 24 Consecutive Hours, Continuous Positive Airway Pressure (ICD-10-PCS; 2025-02-13)
PROC: 5A1D70Z Performance of Urinary Filtration, Intermittent, Less than 6 Hours Per Day (ICD-10-PCS; 2025-02-14)
PROC: 5A09357 Assistance with Respiratory Ventilation, Less than 24 Consecutive Hours, Continuous Positive Airway Pressure (ICD-10-PCS; 2025-02-14)
DX: I13.2 Hypertensive heart and chronic kidney disease with heart failure and with stage 5 chronic kidney disease, or end stage renal disease (principal); I50.43 Acute on chronic combined systolic (congestive) and diastolic (congestive) heart failure; J18.9 Pneumonia, unspecified organism; N18.6 End stage renal disease; J96.21 Acute and chronic respiratory failure with hypoxia; E11.22 Type 2 diabetes mellitus with diabetic chronic kidney disease; Z99.2 Dependence on renal dialysis; D63.1 Anemia in chronic kidney disease; I25.10 Atherosclerotic heart disease of native coronary artery without angina pectoris; I25.2 Old myocardial infarction; Z95.5 Presence of coronary angioplasty implant and graft; G47.33 Obstructive sleep apnea (adult) (pediatric); E66.9 Obesity, unspecified; Z68.26 Body mass index [BMI] 26.0-26.9, adult; Z99.81 Dependence on supplemental oxygen; E11.319 Type 2 diabetes mellitus with unspecified diabetic retinopathy without macular edema; N40.0 Benign prostatic hyperplasia without lower urinary tract symptoms; Z86.73 Personal history of transient ischemic attack (TIA), and cerebral infarction without residual deficits; Z98.0 Intestinal bypass and anastomosis status; W01.0XXA Fall on same level from slipping, tripping and stumbling without subsequent striking against object, initial encounter; Y92.230 Patient room in hospital as the place of occurrence of the external cause; Z95.810 Presence of automatic (implantable) cardiac defibrillator; Z79.899 Other long term (current) drug therapy; Z79.82 Long term (current) use of aspirin; Z79.02 Long term (current) use of antithrombotics/antiplatelets
CPT/HCPCS: 36415; 71046; 80053; 80061; 82948; 83036; 83880; 84484; 85025; 86706; 87340; 93005; 94640; 94660; 94760; 94799; 99252; 99284; G0378; J0696; J1644; J2470; J7030; J7050